=== PATIENT | male | born 1980 | race Hispanic/Latino ===

== ENCOUNTER 2024-02-12 19:38 | Inpatient (IN) | payer BC ==
--- OUTSIDE RECORDS SUMMARY | 2024-02-12 19:46 | XMS REPORT | Continuity of Care Document ---
Author Name Unknown Address [address] [facility] [address] [place] [address] [facility] thconnect Address [address] [facility] 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 Role Phone Tavia Louyuri Booker Primary Care Physician [phone] Lorna Sheridan Attending Clinician Unavail able Roger Lou Attending Clinician Unavailable Cristal Bonner LVN Attending Clinician [phone] Vy Vo MD Attending Clinician [phone] Benjamin Pires DO Attending Clinician [phone] Breanna Joseph RN Attending Clinician [phone] Rachel Feldman DO Attending Clinician [phone] Ab Vazquez MD Attending Clinician [phone] Theron COOPER, Michelle Mcdonald Attending Clinician [phone] Vasyl TY, Yaritza Zarate Attending Clinician Unavail able VY VO Attending Clinician Unavailable Cirilo Ramírez MD Attending Clinician [phone] Doctor Unassigned, [place] Attending Clinician U navailable GAURANG ADAME Attending Clinician Unavailable GAURANG ADAME Attending Clinician Unavailable Laisha Wagner MD, Mary Jo Attending Clinician [phone] KINJAL FLOWER Attending Clinician Unavailable Smooth Holman DO Attending Clinician [phone] Kinjal Flower MD Attending Clinician Benjamin Pires DO Admitting Clinician Michelle Crump MD Admitting Clinician CIRILO RAMÍREZ Admitting Clinician Unavailable Cirilo Ramírez MD Admitting Clinician [phone] MARY JO GUTIERREZ Admitting Clinician Laith Wagner MD, Mary Jo Admitting Clinician [phone] SMOOTH HOLMAN Admitting Clinician Unavailable Payers Payer Name Policy Type Policy Number Effective Date Expirati on Date Source [facility] 6 [id number] 2023 00:00:00 [facility] 6 [id number] 2018 00:00:00 [facility] Problems Condition Name Condition Details Condition Category Status Onset Date Resolution Date Last Treatment Date Treating Clinician Comments Source Altered mental status, unspecifie d altered mental status type Altered mental status, unspecifie d altered mental status type Disease Active 08-11 00:00: 00 [facility] Morbid obesity with body mass index of 40.0-49.9 Morbid obesity with body mass index of 40.0-49.9 Disease Active 08-11 00:00: 00 [facility] DKA, type 2, not at goal DKA, type 2, not at goal Disease Active 20 00:00: 00 [facility] E46 Unspecifie d severe protein-ca gely malnutriti on E46 Unspecifie d severe protein-ca gely malnutriti on Disease Active 07-27 00:00: 00 [facility] Acute pancreatit is without necrosis or infection, unspecifie d Acute pancreatit is without necrosis or infection, unspecifie d Disease Active 04-18 00:00: 00 [facility] Alcohol-in duced acute pancreatit is Alcohol-in duced acute pancreatit is Disease Active 07-05 00:00: 00 [facility] Acute pancreatit is without infection or necrosis Acute pancreatit is without infection or necrosis Disease Active 07-05 00:00: 00 [facility] E44.0 Moderate protein calorie malnutriti on E44.0 Moderate protein calorie malnutriti on Disease Active 07-28 00:00: 00 [facility] DKA, type 1, not at goal DKA, type 1, not at goal Disease Active 07-27 00:00: 00 [facility] [id number] Chronic gout of right foot, unspecifie d cause Problem [facility] [id number] Mixed hyperlipid emia Problem [facility] [id number] Essential hypertensi on Problem [facility] [id number] senior living (current) use of insulin Problem [facility] [id number] GERD without esophagiti s Problem [facility] [id number] Nicotine dependence with nicotine-i nduced disorder, unspecifie d nicotine product type Problem [facility] [id number] History of diabetic ketoacidos is Problem [facility] [id number] Diabetic ketoacidos is without coma associated with type 2 diabetes mellitus Problem [facility] [id number] Noncomplia nce with dietary restrictio n Problem [facility] Hyperglyce buddy due to type 2 diabetes mellitus Type 2 diabetes mellitus with hyperglyce buddy, unspecifie d whether intermediate insulin use Problem [facility] [id number] Alcohol abuse Problem [facility] [id number] Moderate protein-ca gely malnutriti on Problem [facility] [id number] Polyneurop athy Problem [facility] [id number] BMI 39.0-39.9, adult Problem [facility] [id number] Morbid (severe) obesity due to excess calories Problem [facility] Allergies, Adverse Reactions, Alerts Allergy Name Allergy Type Status Severity Reaction(s) Onset Date Inactive Date Treating Clinician Comments Source NO KNOWN ALLERGIE S Drug Class Active [facility] Social History Social Habit Start Date Stop Date Quantity Comments Source History of tobacco use Passive smoker [facility] History SDOH Social Connections Get Together [facility] History SDOH [facility] SDOH Social Connections Membership [facility] History SDOH Social Connections Meetings [facility] At [facility] History of Social function 2023-08-18 00:00:00 2023-08-18 00:00:00 [facility] Tobacco use and exposure 2023-08-16 00:00:00 2023-08-16 00:00:00 Former smokeless tobacco user [facility] Education 2023-04-19 00:00:00 2023-04-19 00:00:00 12 [facility] Tobacco Comment 2023-04-19 00:00:00 2023-04-19 00:00:00 Pt vapes currently [facility] History SDOH Alcohol Frequency 2022-07-06 00:00:00 2022-07-06 00:00:00 4 [facility] History SDOH Alcohol Std Drinks 2022-07-06 00:00:00 2022-07-06 00:00:00 3 [facility] History SDOH Alcohol Binge 2022-07-06 00:00:00 2022-07-06 00:00:00 4 [facility] History SDOH Social Connections Phone 2022-07-06 00:00:00 2022-07-06 00:00:00 5 [facility] History SDOH Social Connections Living 2022-07-06 00:00:00 2022-07-06 00:00:00 7 [facility] History SDOH Physical Activity DPW 2022-07-06 00:00:00 2022-07-06 00:00:00 0 [facility] History SDOH Physical Activity MPS 2022-07-06 00:00:00 2022-07-06 00:00:00 0 [facility] History SDOH Financial 2022-07-06 00:00:00 2022-07-06 00:00:00 5 [facility] History SDOH Food Worry 2022-07-06 00:00:00 2022-07-06 00:00:00 1 [facility] History SDOH Food Scarcity 2022-07-06 00:00:00 2022-07-06 00:00:00 1 [facility] History SDOH Transport Med 2022-07-06 00:00:00 2022-07-06 00:00:00 2 [facility] History SDOH Transport Non-Med 2022-07-06 00:00:00 2022-07-06 00:00:00 2 [facility] History SDOH Housing Unable to Pay 2022-07-06 00:00:00 2022-07-06 00:00:00 1 [facility] History SDOH Housing Places Lived 2022-07-06 00:00:00 2022-07-06 00:00:00 1 [facility] History SDOH Housing Homeless Last Year 2022-07-06 00:00:00 2022-07-06 00:00:00 2 [facility] Exposure to SARS-CoV-2 (event) 2022-06-25 00:00:00 2022-07-05 22:18:00 Not sure [facility] Smoking Status Start Date Stop Date Source Former Smoker 2023-10-15 00:00:00 2023-10-15 00:00:00 [facility] Smokes tobacco daily 2021-07-27 00:00:00 [facility] Medications Ordered Medication Name Filled Medication Name Start Date Stop Date Current Medication? Ordering Clinician Indication Dosage Frequency Signature (SIG) Comments Components Source Blood Glucose Meter Blood Glucose Meter 09-02 00:00: 00 No QD Blood Glucose Meter KCL (KLOR-CON M20) tablet 40 mEq 08-18 15:00: 00 08-18 15:13 :00 No 40meq 40 mEq, Oral, ONCE, 1 dose, On Wed08/19/23 at 1000, Routine [facility] nystatin 100,000 unit/mL suspension 08-18 00:00: 00 08-26 04:59 :00 No [id number] Take 5 mL by mouth 4 (four) times daily for 7 days. [facility] sulfamethox azole-trime thoprim 800-160 mg per tablet 08-18 00:00: 00 08-18 00:00 :00 No [id number] 1{tbl} Take 1 tablet by mouth in the morning and 1 tablet in the evening. [facility] Blood-Gluco se Sensor (FREESTYLE JO 3 SENSOR) Jo 08-18 00:00: 00 08-18 00:00 :00 No [id number] Use as directed [facility] KCL (KLOR-CON M20) tablet 40 mEq 08-17 20:15: 00 08-17 19:34 :00 No 40meq 40 mEq, Oral, ONCE, 1 dose, On Wed08/18/23 at 1515, Routine [facility] insulin lispro (human) (HumaLOG U-100) injection 8 Units 08-17 17:00: 00 Yes 8U 8 Units, Subcutaneo us, TID MEALS, First dose on Wed08/18/23 at 1200, Until Discontinu ed, Routine [facility] KCL (KLOR-CON M20) tablet 40 mEq 08-17 14:45: 00 08-17 14:03 :00 No 40meq 40 mEq, Oral, ONCE, 1 dose, On Wed08/18/23 at 0945, Routine [facility] insulin glargine (LANTUS U-100) injection 35 Units 08-17 14:00: 00 Yes 35U 35 Units, Subcutaneo us, DAILY, First dose on Wed08/18/23 at 0900, Until Discontinu ed, Routine [facility] glucagon (GLUCAGEN DIAGNOSTIC KIT) injection 1 mg 08-17 13:52: 51 Yes 1mg 1 mg, Intramuscu lar, PRN, Starting on Wed08/18/23 at 0852, Until Discontinu ed, FREDERICK, Blood Glucose < or = 70 mg/dL and patient is NPO, unable to swallow or has mental changes. [facility] dextrose 50 % in water (D50W) injection 25 mL 08-17 13:52: 51 Yes 25mL 25 mL, Slow IV Push, PRN, Starting on Wed08/18/23 at 0852, Until Discontinu ed, FREDERICK, Blood Glucose < or = 70 mg/dL and patient is NPO, unable to swallow or has mental status changes. [facility] traMADoL (ULTRAM) tablet 50 mg 08-17 03:23: 42 Yes 50mg 50 mg, Oral, Q6HPRN, Starting on Wed08/17/23 at 2223, Until Discontinu ed, Routine, Pain (scale 7-10) [facility] atorvastati n (LIPITOR) tablet 40 mg 08-17 02:00: 00 Yes 40mg 40 mg, Oral, QHS, First dose on Wed08/17/23 at 2100, Until Discontinu ed, Routine [facility] nystatin (NILSTAT) 100,000 unit/mL suspension 500,000 Units 08-17 01:00: 00 Yes 5mL 500,000 Units (5 mL), Oral, QID, First dose on Wed08/17/23 at 2000, Until Discontinu ed, Routine [facility] D5W 1000 mL + KCL 20 mEq 08-16 21:45: 00 08-17 19:21 :41 No IV Infusion, at 125 mL/hr, CONTINUOUS , Starting on Wed08/17/23 at 1645, Until Wed08/18/23 at 1421, Routine [facility] D5W 1000 mL + KCL 20 mEq 08-16 12:45: 00 08-16 21:44 :59 No IV Infusion, at 250 mL/hr, CONTINUOUS , Starting on Wed08/17/23 at 0745, Until Wed08/17/23 at 1644, Routine [facility] D5W 0.45% NaCl (1/2NS) 1 L + KCL 20 mEq 08-16 06:23: 31 08-16 11:38 :28 No IV Infusion, at 250 mL/hr, PRN - SEE INSTRUCTIO NS, Starting on Wed08/17/23 at 0123, Until Wed08/17/23 at 0638, Routine, Blood glucose control [facility] ampicillin- sulbactam (UNASYN) 3 g in NaCl 0.9% (NS) 100 mL MINI-BAG 08-16 03:30: 00 08-21 03:29 :00 No 3g 3 g, IV Piggyback, Q6H ABX, 20 doses, First dose on Wed08/16/23 at 2230, Last dose on Wed08/21/23 at 1630, Administer over 30 Minutes, 100 mL, Reason for Anti-Infec tive: Empiric Therapy for Suspected Infection, Empiric Therapy Site: Wound, Duration of therapy: 5 days [facility] heparin (porcine) injection 5,000 Units 08-16 03:00: 00 Yes 5000U 5,000 Units, Subcutaneo us, Q8H, First dose on Wed08/16/23 at 2200, Until Discontinu ed, Routine [facility] benzocaine- menthoL (CEPACOL SORE THROAT (SHAHEED-MEN)) lozenge 1 Lozenge 08-16 02:42: 33 Yes 1{lozen ge} 1 Lozenge, Oral, Q4HPRN, Starting on Wed08/16/23 at 2142, Until Discontinu ed, Routine, Sore throat [facility] potassium chloride in water (KCL) 20 mEq/100 mL RTU IVPB 20 mEq 08-16 02:30: 00 08-16 05:57 :00 No 20meq 20 mEq, IV Piggyback, ONCE, 1 dose, On Wed08/16/23 at 2130, 100 mL [facility] NaCl 0.45% (1/2NS) IV infusion 1,000 mL 08-16 02:30: 00 08-16 11:38 :28 No 1000mL at 250 mL/hr, 1,000 mL, IV Infusion, CONTINUOUS , Starting on Wed08/16/23 at 2130, Until Wed08/17/23 at 0638, FREDERICK [facility] insulin regular human (HUMULIN R) 100 Units in NaCl 0.9% (NS) 100 mL infusion 08-16 02:24: 17 08-18 14:13 :09 No 0U/kg/h 0-0.3 Units/kg/h r ?88 kg (0-26.4 mL/hr), IV Infusion, TITRATE, Parameters in Admin. Instr., Follow DKA Insulin Rate Adjustment Protocol, Starting on Wed08/16/23 at 2124, IMPORTAN T: IF YOU ARE THE NURSE INITIATING THE INSULIN DRIP, in order to be able to adjust rate, change the dose from the MAR from the drop-down menu from units/kg/h r to units/hr. This will send the dosage to the IV pump in units/hr, which aligns with the insulin calculator and nursing practice.* * - Follow 'DKA Insulin Rate Adjustment Protocol' - Start insulin infusion at 0.1 units/kg /hr. When adjusting rate, do not increase rate above 0.3 units/kg/h our. If rate has been at 0.3 units/kg/h r for the past two hours AND blood glucose remains above 200 mg/dL in DKA and above 300 mg/dL in HHS without a drop of at least 10% in glucose levels, NHO for considerat ion of endocrinol ogy consult - Hold insulin and NHO STAT if potassium is less than 3.3 mEq/L. - NHO STAT if blood glucose less than 100 mg/dL or greater than 600 mg/dL or if blood glucose not decreased by 50 mg/dL in the first hour of insulin infusion. - Once blood glucose is less than or equal to 200 mg/dL in patient with DKA or blood glucose is less than or equal to 300 mg/dL in patient with HHS, change to fluids with dextrose. - If during insulin infusion and on dextrose fluids blood glucose is less than 150 mg/dL in DKA or less than 200 mg/dL in HHS, NHO for increase in dextrose provided in continuous fluids. - Once AGAP less than 12, blood glucose less than 200 mg/dL, TCO2 greater than 15 x 2 and patient ready to eat, NHO for SubQ glargine order two hours before stopping insulin infusion. [facility] D5W 0.45% NaCl (1/2NS) IV infusion 1,000 mL 08-16 02:23: 31 08-16 06:23 :48 No 1000mL at 200 mL/hr, 1,000 mL, IV Infusion, PRN - SEE INSTRUCTIO NS, Starting on Wed08/16/23 at 2123, Until Wed08/17/23 at 0123, FREDERICK [facility] insulin glargine (LANTUS U-100) injection 35 Units 08-13 14:00: 00 Yes 35U 35 Units, Subcutaneo us, DAILY, First dose on Wed08/14/23 at 0900, Until Discontinu ed, Routine [facility] atorvastati n (LIPITOR) tablet 40 mg 08-13 02:00: 00 Yes 40mg 40 mg, Oral, QHS, First dose on Wed08/13/23 at 2100, Until Discontinu ed, Routine [facility] Blood-Gluco se Meter (ACCU-CHEK GUIDE GLUCOSE METER) [facility] 00 Yes [id number] Use as directed [facility] lancets 33 gauge Misc 08-13 00:00: 00 Yes [id number] Use as directed [facility] blood sugar diagnostic (ACCU-CHEK GUIDE TEST STRIPS) strip 08-13 00:00: 00 Yes [id number] Use as directed [facility] Insulin Syringe-Nee dle U-100 0.5 mL 31 gauge x 5/16" Syrg 08-13 00:00: 00 Yes [id number] Use as directed [facility] insulin detemir U-100 (LEVEMIR U-100 INSULIN) 100 unit/mL injection 08-13 00:00: 00 Yes [id number] 35U inject 35 Units under the skin in the morning. [facility] insulin aspart RAPID (NOVOLOG U-100 INSULIN ASPART) 100 unit/mL injection 08-13 00:00: 00 Yes [id number] 10U inject 10 Units under the skin in the morning and 10 Units at noon and 10 Units in the evening. inject with meals. [facility] glipiZIDE 5 mg tablet 08-13 00:00: 00 09-13 04:59 :00 No [id number] 5mg Take 1 tablet by mouth 2 (two) times daily before breakfast and dinner for 30 days. [facility] metFORMIN 500 mg tablet 08-13 00:00: 00 09-13 04:59 :00 No [id number] 500mg Take 1 tablet by mouth in the morning and 1 tablet in the evening. Take with meals. Do all this for 30 days. [facility] losartan 25 mg tablet 08-13 00:00: 00 09-13 04:59 :00 No [id number] 25mg Take 1 tablet by mouth in the morning for 30 days. [facility] Sliding Scale Insulin - Lispro (HumaLOG) 08-12 22:00: 00 Yes Subcutaneo us, TID MEALS+HS, First dose on Wed08/13/23 at 1700, Until Discontinu ed, Routine [facility] metFORMIN (GLUCOPHAGE ) tablet 500 mg 08-12 22:00: 00 Yes 500mg 500 mg, Oral, BID MEALS, First dose on Wed08/13/23 at 1700, Until Discontinu ed, Routine [facility] insulin lispro (human) (HumaLOG U-100) injection 10 Units 08-12 21:30: 00 Yes 10U 10 Units, Subcutaneo us, TIDAC, First dose on Wed08/13/23 at 1630, Until Discontinu ed, Routine [facility] glipiZIDE (GLUCOTROL) tablet 5 mg 08-12 21:30: 00 Yes 5mg 5 mg, Oral, BIDAC, First dose on Wed08/13/23 at 1630, Until Discontinu ed, Routine [facility] D5W 1000 mL + KCL 20 mEq 08-12 15:00: 00 08-12 18:08 :38 No IV Infusion, at 200 mL/hr, CONTINUOUS , Starting on Wed08/13/23 at 1000, Until Wed08/13/23 at 1308, Routine [facility] allopurinoL (ZYLOPRIM) tablet 100 mg 08-12 14:00: 00 Yes 100mg 100 mg, Oral, DAILY, First dose on Wed08/13/23 at 0900, Until Discontinu ed, Routine [facility] insulin glargine (LANTUS U-100) injection 30 Units 08-12 13:15: 00 08-12 13:17 :00 No 30U 30 Units, Subcutaneo us, ONCE TODAY, 1 dose, On Wed08/13/23 at 0815, Routine [facility] glucagon (GLUCAGEN DIAGNOSTIC KIT) injection 1 mg 08-12 12:04: 01 Yes 1mg 1 mg, Intramuscu lar, PRN, Starting on Wed08/13/23 at 0704, Until Discontinu ed, FREDERICK, Blood Glucose < or = 70 mg/dL and patient is NPO, unable to swallow or has mental changes. [facility] dextrose 50 % in water (D50W) injection 25 mL 08-12 12:04: 01 Yes 25mL 25 mL, Slow IV Push, PRN, Starting on Wed08/13/23 at 0704, Until Discontinu ed, FREDERICK, Blood Glucose < or = 70 mg/dL and patient is NPO, unable to swallow or has mental status changes. [facility] dextrose 50 % in water (D50W) injection 50 mL 08-12 03:00: 00 08-12 02:19 :00 No 50mL 50 mL, Slow IV Push, ONCE, 1 dose, On Wed08/12/23 at 2200, STAT [facility] D5W 0.45% NaCl (1/2NS) 1 L + KCL 20 mEq 08-11 23:31: 58 08-12 13:49 :41 No IV Infusion, at 200 mL/hr, TITRATE, Starting on Wed08/12/23 at 1831, Until Wed08/13/23 at 0849, Routine, Blood glucose control, PRN SEE INSTRUCTIO NS FOR DKA PROTOCOL [facility] enoxaparin (LOVENOX) injection 40 mg 08-11 22:00: 00 Yes 40mg 40 mg, Subcutaneo us, DAILY, First dose on Wed08/12/23 at 1700, Until Discontinu ed, Routine [facility] NaCl 0.45% (1/2NS) IV infusion 1,000 mL 08-11 16:00: 00 08-12 12:00 :09 No 1000mL at 250 mL/hr, 1,000 mL, IV Infusion, CONTINUOUS , Starting on Wed08/12/23 at 1100, Until Wed08/13/23 at 0700, FREDERICK [facility] insulin regular human (HUMULIN R) 100 Units in NaCl 0.9% (NS) 100 mL infusion 08-11 15:50: 37 08-12 18:08 :38 No 0U/kg/h 0-0.3 Units/kg/h r ?102.5 kg (0-30.75 mL/hr), IV Infusion, TITRATE, Parameters in Admin. Instr., Follow DKA Insulin Rate Adjustment Protocol, Starting on Wed08/12/23 at 1050, IMPORTAN T: IF YOU ARE THE NURSE INITIATING THE INSULIN DRIP, in order to be able to adjust rate, change the dose from the MAR from the drop-down menu from units/kg/h r to units/hr. This will send the dosage to the IV pump in units/hr, which aligns with the insulin calculator and nursing practice.* * - Follow 'DKA Insulin Rate Adjustment Protocol' - Start insulin infusion at 0.1 units/kg /hr. When adjusting rate, do not increase rate above 0.3 units/kg/h our. If rate has been at 0.3 units/kg/h r for the past two hours AND blood glucose remains above 200 mg/dL in DKA and above 300 mg/dL in HHS without a drop of at least 10% in glucose levels, NHO for considerat ion of endocrinol ogy consult - Hold insulin and NHO STAT if potassium is less than 3.3 mEq/L. - NHO STAT if blood glucose less than 100 mg/dL or greater than 600 mg/dL or if blood glucose not decreased by 50 mg/dL in the first hour of insulin infusion. - Once blood glucose is less than or equal to 200 mg/dL in patient with DKA or blood glucose is less than or equal to 300 mg/dL in patient with HHS, change to fluids with dextrose. - If during insulin infusion and on dextrose fluids blood glucose is less than 150 mg/dL in DKA or less than 200 mg/dL in HHS, NHO for increase in dextrose provided in continuous fluids. - Once AGAP less than 12, blood glucose less than 200 mg/dL, TCO2 greater than 15 x 2 and patient ready to eat, NHO for SubQ glargine order two hours before stopping insulin infusion. [facility] NaCl 0.9% (NS) bolus infusion 1,000 mL 08-11 15:45: 00 08-11 16:02 :00 No 1000mL at 999 mL/hr, 1,000 mL, IV Infusion, ONCE, 1 dose, On Nurys 08/12/23 at 1045, [facility] NaCl 0.9% (NS) bolus infusion 1,000 mL 08-11 14:45: 00 08-11 16:02 :00 No 1000mL at 999 mL/hr, 1,000 mL, IV Infusion, ONCE, 1 dose, On Nurys 08/12/23 at 0945, [facility] sodium bicarbonate 1 mEq/mL (8.4 %) injection 100 mEq 08-11 14:45: 00 08-11 13:55 :00 No 100meq 100 mEq, Slow IV Push, ONCE, 1 dose, On Nurys 08/12/23 at 0945, Routine [facility] insulin regular human (HUMULIN R) injection 10 Units 08-11 14:30: 00 08-11 13:59 :00 No 10U 10 Units, Slow IV Push, ONCE, 1 dose, On Wed08/12/23 at 0930, Routine, Indication for insulin: Hyperglyce buddy [facility] NaCl 0.9% (NS) bolus infusion 1,000 mL 08-11 14:30: 00 08-11 15:16 :00 No 1000mL at 999 mL/hr, 1,000 mL, IV Infusion, ONCE, 1 dose, On Wed08/12/23 at 0930, FREDERICK [facility] insulin regular human (HUMULIN R) 100 Units in NaCl 0.9% (NS) 100 mL infusion 08-11 13:52: 36 08-11 15:51 :52 No 0U/kg/h 0-0.3 Units/kg/h r ?102.5 kg (0-30.75 mL/hr), IV Infusion, TITRATE, Parameters in Admin. Instr., Follow DKA Insulin Rate Adjustment Protocol, Starting on Wed08/12/23 at 0852, IMPORTAN T: IF YOU ARE THE NURSE INITIATING THE INSULIN DRIP, in order to be able to adjust rate, change the dose from the MAR from the drop-down menu from units/kg/h r to units/hr. This will send the dosage to the IV pump in units/hr, which aligns with the insulin calculator and nursing practice.* * - Follow 'DKA Insulin Rate Adjustment Protocol' - Start insulin infusion at 0.1 units/kg /hr. When adjusting rate, do not increase rate above 0.3 units/kg/h our. If rate has been at 0.3 units/kg/h r for the past two hours AND blood glucose remains above 200 mg/dL in DKA and above 300 mg/dL in HHS without a drop of at least 10% in glucose levels, KYO for considerat ion of endocrinol ogy consult - Hold insulin and NHO STAT if potassium is less than 3.3 mEq/L. - NHO STAT if blood glucose less than 100 mg/dL or greater than 600 mg/dL or if blood glucose not decreased by 50 mg/dL in the first hour of insulin infusion. - Once blood glucose is less than or equal to 200 mg/dL in patient with DKA or blood glucose is less than or equal to 300 mg/dL in patient with HHS, change to fluids with dextrose. - If during insulin infusion and on dextrose fluids blood glucose is less than 150 mg/dL in DKA or less than 200 mg/dL in HHS, NHO for increase in dextrose provided in continuous fluids. - Once AGAP less than 12, blood glucose less than 200 mg/dL, TCO2 greater than 15 x 2 and patient ready to eat, NHO for SubQ glargine order two hours before stopping insulin infusion. [facility] polyethylen e glycol 3350 17 gram powder 07-29 00:00: 00 08-29 04:59 :00 No [id number] 17g Take 1 Packet by mouth in the morning for 30 days. [facility] SITagliptin phosphate 25 mg tablet 07-29 00:00: 00 08-29 04:59 :00 No [id number] 25mg Take 1 tablet by mouth in the morning for 30 days. [facility] glipiZIDE XL 2.5 mg 24 hr tablet 07-29 00:00: 00 08-13 00:00 :00 No [id number] 2.5mg Take 1 tablet by mouth daily with breakfast for 30 days. [facility] SITagliptin phosphate (JANUVIA) tablet 25 mg 07-28 14:00: 00 Yes 25mg 25 mg, Oral, DAILY, First dose on Nurys 07/29/23 at 0900, Until Discontinu ed, Routine [facility] atorvastati n 40 mg tablet 07-28 13:08: 17 Yes 40mg Take 1 tablet by mouth at bedtime. [facility] allopurinoL 200 mg Tab 07-28 13:08: 17 08-18 00:00 :00 No 100mg Take 100 mg by mouth in the morning. [facility] losartan 50 mg tablet 07-28 13:08: 17 08-13 00:00 :00 No 50mg Take 1 tablet by mouth in the morning. [facility] empaglifloz in-metformi n (SYNJARDY) 12.5-1,000 mg Tab 07-28 11:18: 00 07-28 00:00 :00 No 1{tbl} Take 1 tablet by mouth in the morning. [facility] Sliding Scale Insulin - Lispro (HumaLOG) 07-28 02:00: 00 Yes Subcutaneo us, TID MEALS+HS, First dose on Wed07/28/23 at 2100, Until Discontinu ed, Routine [facility] glipiZIDE XL (GLUCOTROL XL) tablet 2.5 mg 07-27 22:15: 00 Yes 2.5mg 2.5 mg, Oral, QAM WITH BREAKFAST, First dose (after last modificati on) on Wed07/28/23 at 1715, Until Discontinu ed, Routine [facility] glucagon (GLUCAGEN DIAGNOSTIC KIT) injection 1 mg 07-27 22:08: 10 Yes 1mg 1 mg, Intramuscu lar, PRN, Starting on Wed07/28/23 at 1708, Until Discontinu ed, FREDERICK, Blood Glucose < or = 70 mg/dL and patient is NPO, unable to swallow or has mental changes. [facility] dextrose 50 % in water (D50W) injection 25 mL 07-27 22:08: 10 Yes 25mL 25 mL, Slow IV Push, PRN, Starting on Wed07/28/23 at 1708, Until Discontinu ed, FREDERICK, Blood Glucose < or = 70 mg/dL and patient is NPO, unable to swallow or has mental status changes. [facility] sennosides- docusate sodium (SENOKOT-S) 8.6-50 mg per tablet 1 tablet 07-27 19:45: 00 Yes 1{tbl} 1 tablet, Oral, DAILY, First dose on Wed07/28/23 at 1445, Until Discontinu ed, Routine [facility] polyethylen e glycol 3350 powder 17 g 07-27 19:45: 00 Yes 17g 17 g, Oral, DAILY, First dose on Wed07/28/23 at 1445, Until Discontinu ed, Routine [facility] insulin lispro (human) (HumaLOG U-100) injection 3 Units 07-27 13:00: 00 07-27 17:30 :01 No 3U 3 Units, Subcutaneo us, TID MEALS, First dose on Wed07/28/23 at 0800, Until Discontinu ed, Routine [facility] atorvastati n (LIPITOR) tablet 40 mg 07-27 02:00: 00 Yes 40mg 40 mg, Oral, QHS, First dose on Wed07/27/23 at 2100, Until Discontinu ed, Routine [facility] insulin lispro (human) (HumaLOG U-100) injection 07-27 01:00: 00 07-27 17:30 :01 No Subcutaneo us, Q4H, First dose on Wed07/27/23 at 2000, Until Discontinu ed, [facility]LOVENOX[facility] 40 mg 07-26 22:00: 00 Yes 40mg 40 mg, Subcutaneo us, DAILY, First dose on Wed07/27/23 at 1700, Until Discontinu ed, Routine [facility] phenoL (SORE THROAT (PHENOL)) 1.4 % spray bottle 1 [place] 07-26 15:23: 28 Yes 1{spray } 1 [place], Oral, PRN, Starting on Wed07/27/23 at 1023, Until Discontinu ed, Routine, Sore throat [facility] losartan (COZAAR) tablet 50 mg 07-26 14:00: 00 Yes 50mg 50 mg, Oral, DAILY, First dose on Wed07/27/23 at 0900, Until Discontinu ed, Routine [facility] allopurinoL (ZYLOPRIM) tablet 100 mg 07-26 14:00: 00 Yes 100mg 100 mg, Oral, DAILY, First dose on Wed07/27/23 at 0900, Until [facility]continu ed [facility] D[facility] mL + KCL 20 mEq 07-26 14:00: 00 07-27 14:27 :56 No IV Infusion, at 150 mL/hr, CONTINUOUS , Starting on Wed07/27/23 at 0900, Until Wed07/28/23 at 0927, Routine [facility] ondansetron (ZOFRAN (PF)) injection 4 mg 07-26 09:38: 31 Yes 4mg 4 mg, Slow IV Push, Q6HPRN, Starting on Wed07/27/23 at 0438, Until Discontinu ed, Routine, Nausea and Vomiting (N/V) [facility] acetaminoph en (TYLENOL) tablet 650 mg 07-26 09:38: 16 Yes 650mg 650 mg, Oral, Q6HPRN, Starting on Wed07/27/23 at 0438, Until Discontinu ed, Routine, Pain (scale 1-3) [facility] iopamidol (ISOVUE 370-500 mL) injection 100 mL 07-26 09:15: 00 07-26 09:15 :00 No [id number] 100mL 100 mL, Intravenou s, ONCE, 1 dose, On Wed07/27/23 at 0415, Routine [facility] insulin regular human (HUMULIN R) 100 Units in NaCl 0.9% (NS) 100 mL infusion 07-26 09:00: 00 Yes 0U/kg/h 0-0.3 Units/kg/h r ?104.3 kg (0-31.29 mL/hr), IV Infusion, TITRATE, Parameters in Admin. Instr., Follow DKA Insulin Rate Adjustment Protocol, Starting on Wed07/27/23 at 0400, JOHNAN T: IF YOU ARE THE NURSE INITIATING THE INSULIN DRIP, in order to be able to adjust rate, change the dose from the MAR from the drop-down menu from units/kg/h r to units/hr. This will send the dosage to the IV pump in units/hr, which aligns with the insulin calculator and nursing practice.* * - Follow 'DKA Insulin Rate Adjustment Protocol' - Start insulin infusion at 0.1 units/kg /hr. When adjusting rate, do not increase rate above 0.3 units/kg/h our. If rate has been at 0.3 units/kg/h r for the past two hours AND blood glucose remains above 200 mg/dL in DKA and above 300 mg/dL in HHS without a drop of at least 10% in glucose levels, NHO for considerat ion of endocrinol ogy consult - Hold insulin and NHO STAT if potassium is less than 3.3 mEq/L. - NHO STAT if blood glucose less than 100 mg/dL or greater than 600 mg/dL or if blood glucose not decreased by 50 mg/dL in the first hour of insulin infusion. - Once blood glucose is less than or equal to 200 mg/dL in patient with DKA or blood glucose is less than or equal to 300 mg/dL in patient with HHS, change to fluids with dextrose. - If during insulin infusion and on dextrose fluids blood glucose is less than 150 mg/dL in DKA or less than 200 mg/dL in HHS, NHO for increase in dextrose provided in continuous fluids. - Once AGAP less than 12, blood glucose less than 200 mg/dL, TCO2 greater than 15 x 2 and patient ready to eat, NHO for SubQ glargine order two hours before stopping insulin infusion. [facility] potassium chloride in water (KCL) 20 mEq/100 mL RTU IVPB 20 mEq 07-26 08:45: 00 07-26 11:07 :00 No 20meq 20 mEq, IV Piggyback, ONCE, 1 dose, On Wed07/27/23 at 0345, 100 mL [facility] NaCl 0.45% (1/2NS) 1000 mL + KCL 20 mEq 07-26 08:45: 00 07-26 12:49 :04 No 1000mL [facility] D5W 0.45% NaCl (1/2NS) IV infusion 1,000 mL 07-26 08:40: 33 Yes 1000mL at 200 mL/hr, 1,000 mL, IV Infusion, PRN - SEE INSTRUCTIO NS, Starting on Wed07/27/23 at 0340, Until Discontinu ed, FREDERICK [facility] NaCl 0.9% (NS) bolus infusion 1,000 mL 07-26 08:30: 00 07-26 09:58 :00 No 1000mL at 999 mL/hr, 1,000 mL, IV Piggyback, ONCE, 1 dose, On Wed07/27/23 at 0330, STAT [facility] hyoscyamine sulfate (LEVSIN/SL) sublingual tablet 0.25 mg 07-26 08:30: 00 07-26 07:39 :00 No .25mg 0.25 mg, Sublingual , ONCE NOW, 1 dose, On Wed07/27/23 at 0330, Routine [facility] famotidine (PEPCID (PF)) injection 20 mg 07-26 08:30: 00 07-26 07:37 :00 No 20mg 20 mg, Slow IV Push, ONCE NOW, 1 dose, [facility] Wed07/27/23 at 0330[facility]% (NS) bolus infusion 2,000 mL 07-26 08:15: 00 07-26 09:31 :00 No 2000mL at 999 mL/hr, 2,000 mL, IV Piggyback, ONCE, 1 dose, On Wed07/27/23 at 0315, STAT [facility] insulin regular human (HUMULIN R) injection 10 Units 07-26 07:45: 00 07-26 07:54 :00 No 10U 10 Units, Slow IV Push, ONCE, 1 dose, On Wed07/27/23 at 0245, STAT, Indication for insulin: Hyperglyce [facility] ondansetron (ZOFRAN (PF)) injection 4 mg 07-26 07:45: 00 07-26 07:39 :00 No 4mg 4 mg, Slow IV Push, ONCE, 1 dose, On Wed07/27/23 at 0245, FREDERICK [facility] fenofibrate micronized 67 mg capsule -15 00:00: 00 05-23 04:59 :00 No [id number] 67mg Take 1 capsule by mouth in the morning for 30 days. [facility] losartan 50 mg tablet 04-21 16:26: 29 Yes 50mg Take 1 tablet by mouth in the morning. [facility] allopurinoL 200 mg Tab 04-21 16:26: 29 Yes 100mg Take 100 mg by mouth in the morning. [facility] atorvastati n 40 mg tablet 04-21 16:26: 29 Yes 40mg Take 1 tablet by mouth at bedtime. [facility] empaglifloz in-metformi n (SYNJARDY) 12.5-1,000 mg Tab 04-21 16:26: 29 Yes 1{tbl} Take 1 tablet by mouth in the morning. [facility] amLODIPine (NORVASC) tablet 5 mg 04-21 15:30: 00 Yes 5mg 5 mg, Oral, DAILY, First dose on Wed04/22/23 at 1030, Until Discontinu ed, Routine [facility] fenofibrate micronized (LOFIBRA) capsule 67 mg 04-21 14:00: 00 Yes 67mg 67 mg, Oral, DAILY, First dose on Wed04/22/23 at 0900, Until Discontinu ed, Routine [facility] ketorolac (TORADOL) injection 15 mg 04-21 10:45: 00 04-21 13:40 :00 No 15mg 15 mg, Slow IV Push, ONCE, 1 dose, On Wed04/22/23 at 0545, Routine [facility] potassium chloride in water 10 mEq/100 mL RTU 10 mEq 04-20 15:00: 00 04-20 19:25 :00 No 10meq 10 mEq, IV Piggyback, Q2H, 3 doses, First dose on Wed04/21/23 at 1000, Last dose on Wed04/21/23 at 1400, Administer over 60 Minutes, 100 mL [facility] hydralAZINE (APRESOLINE ) injection 5 mg 04-20 13:54: 28 Yes 5mg 5 mg, Slow IV Push, Q4HPRN, Starting on Wed04/21/23 at 0854, Until Discontinu ed, Routine, DBP=>100; SBP=>160 [facility] losartan (COZAAR) tablet 50 mg 04-20 00:00: 00 Yes 50mg 50 mg, Oral, DAILY, First dose on Wed04/20/23 at 1900, Until Discontinu ed, Routine [facility] NaCl 0.9% (NS) IV infusion 1,000 mL 04-20 00:00: 00 Yes 1000mL at 150 mL/hr, IV Infusion, CONTINUOUS , Starting on Wed04/20/23 at 1900, Until Discontinu ed, Routine [facility] enoxaparin (LOVENOX) injection 40 mg 04-19 14:00: 00 Yes 40mg 40 mg, Subcutaneo us, DAILY, First dose on Wed04/20/23 at 0900, Until Discontinu ed, Routine [facility] allopurinoL (ZYLOPRIM) tablet 100 mg 04-19 14:00: 00 Yes 100mg 100 mg, Oral, DAILY, First dose on Wed04/20/23 at 0900, Until Discontinu ed [facility] NaCl 0.9% (NS) IV infusion 1,000 mL 04-19 07:45: 00 04-19 23:51 :00 No 1000mL at 125 mL/hr, IV Infusion, CONTINUOUS , Starting on Wed04/20/23 at 0245, Until Wed04/20/23 at 1851, Routine [facility] Sliding Scale Insulin - Lispro (HumaLOG) 04-19 05:00: 00 Yes Subcutaneo us, Q6H, First dose on Wed04/20/23 at 0000, Until Discontinu ed, Routine [facility] FENTanyl PF (SUBLIMAZE (PF)) injection 50 mcg 04-19 04:47: 30 Yes 50ug 50 mcg, Slow IV Push, Q4HPRN, Starting on Wed04/19/23 at 2347, Until Discontinu ed, Routine, Pain (scale 7-10) [facility] hydralAZINE (APRESOLINE ) injection 10 mg 04-19 02:46: 42 04-20 13:55 :11 No 10mg 10 mg, Slow IV Push, Q4HPRN, Starting on Wed04/19/23 at 2146, Until Wed04/21/23 at 0855, Routine, DBP=>100; SBP=>160 [facility] glucagon (GLUCAGEN DIAGNOSTIC KIT) injection 1 mg 04-19 02:11: 10 Yes 1mg 1 mg, Intramuscu lar, PRN, Starting on Wed04/19/23 at 2111, Until Discontinu ed, FREDERICK, Blood Glucose < or = 70 mg/dL and patient is NPO, unable to swallow or has mental changes. [facility] dextrose 50 % in water (D50W) injection 25 mL 04-19 02:11: 10 Yes 25mL 25 mL, Slow IV Push, PRN, Starting on Wed04/19/23 at 2111, Until Discontinu ed, FREDERICK, Blood Glucose < or = 70 mg/dL and patient is NPO, unable to swallow or has mental status changes. [facility] ondansetron (ZOFRAN (PF)) injection 4 mg 04-19 02:11: 10 Yes 4mg 4 mg, Slow IV Push, Q6HPRN, Starting on Wed04/19/23 at 2111, Until Discontinu ed, Routine, Nausea and Vomiting (N/V) [facility] acetaminoph en (TYLENOL) tablet 650 mg 04-19 02:11: 10 Yes 650mg 650 mg, Oral, Q6HPRN, Starting on Wed04/19/23 at 2111, Until Discontinu ed, Routine, Pain (scale 1-3) [facility] HYDROcodone -acetaminop hen (NORCO 5) 5-325 mg tablet 1 tablet 04-19 02:11: 10 04-21 02:10 :10 No 1{tbl} 1 tablet, Oral, Q6HPRN, Starting on Wed04/19/23 at 2111, Until Wed04/21/23 at 2110, Routine, Pain (scale 4-6) [facility] morpHINE (2 mg/mL) injection 2 mg 04-19 02:11: 10 04-19 04:47 :41 No 2mg 2 mg, Slow IV Push, Q4HPRN, Starting on Wed04/19/23 at 2111, Until Wed04/19/23 at 2347, Routine, Pain (scale 7-10) [facility] losartan 50 mg tablet 07-08 13:23: 36 Yes 50mg Take 50 mg by mouth daily. [facility] amLODIPine (NORVASC) tablet 10 mg 07-08 05:30: 00 Yes 10mg 10 mg, Oral, DAILY, First dose on Wed07/08/22 at 0030, Until Discontinu ed, Routine [facility] hydrALAZINE (APRESOLINE ) tablet 10 mg 07-08 01:42: 46 Yes 10mg 10 mg, Oral, Q6HPRN, Starting on Wed07/07/22 at 2042, Until Discontinu ed, Routine, SBP>160, DBP>100 [facility] amLODIPine 10 mg tablet 07-08 00:00: 00 08-08 04:59 :00 No [id number] 10mg Take 1 tablet by mouth in the morning for 30 days. [facility] lactated ringers IV infusion 1,000 mL 07-07 20:15: 00 Yes 1000mL at 100 mL/hr, 1,000 mL, IV Infusion, CONTINUOUS , Starting on Wed07/07/22 at 1515, Until Discontinu ed, Routine [facility] allopurinoL 100 mg tablet 07-07 09:33: 40 07-07 00:00 :00 No 100mg Take 100 mg by mouth daily. [facility] morpHINE (2 mg/mL) injection 2 mg 07-07 03:30: 33 07-09 03:29 :33 No 2mg 2 mg, Slow IV Push, Q4HPRN, Starting on Wed07/06/22 at 2230, Until Wed07/08/22 at 2229, Routine, Pain (scale 7-10) [facility] multivitami n tablet 07-07 00:00: 00 08-07 04:59 :00 No [id number] 1{tbl} Take 1 tablet by mouth in the morning for 30 days. [facility] thiamine 100 mg tablet 07-07 00:00: 00 08-07 04:59 :00 No [id number] 100mg Take 1 tablet by mouth in the morning for 30 days. [facility] HYDROcodone -acetaminop hen 5-325 mg tablet 07-07 00:00: 00 07-11 04:59 :00 No [id number] 1{tbl} Take 1 tablet by mouth every 6 (six) hours as needed for Pain (scale 4-6) for up to 3 days. Indication s: acute pain [facility] HYDROcodone -acetaminop hen (NORCO 5) 5-325 mg tablet 1 tablet 07-06 15:05: 38 Yes 1{tbl} 1 tablet, Oral, Q6HPRN, Starting on Wed07/06/22 at 1005, Until Discontinu ed, Routine, Pain (scale 4-6) [facility] multivitami n tablet 1 tablet 07-06 14:00: 00 Yes 1{tbl} 1 tablet, Oral, DAILY, First dose on Wed07/06/22 at 0900, Until Discontinu ed, Routine [facility] thiamine (VITAMIN B1) 100 mg in NaCl 0.9% (NS) piggyback 07-06 14:00: 00 07-06 15:10 :00 No 100mg IV Piggyback, DAILY, 1 dose, First dose on Wed07/06/22 at 0900, 50 mL [facility] Sliding Scale Insulin - Lispro (HumaLOG) 07-06 13:00: 00 Yes Subcutaneo us, TID MEALS+HS, First dose on Wed07/06/22 at 0800, Until Discontinu ed, Routine [facility] heparin (porcine) injection 5,000 Units 07-06 13:00: 00 Yes 5000U 5,000 Units, Subcutaneo us, Q12H, First dose on Wed07/06/22 at 0800, Until Discontinu ed, Routine [facility] oxazepam (SERAX) capsule 15 mg 07-06 12:44: 01 Yes 15mg 15 mg, Oral, Q4HPRN, Starting on Wed07/06/22 at 0744, Until Discontinu ed, Routine, Only while awake for DBP equal to or greater than 100, HR equal to or greater than 100. [facility] pantoprazol e (PROTONIX) injection 40 mg 07-06 03:30: 00 Yes 40mg 40 mg, Slow IV Push, Q24H, First dose on Wed07/05/22 at 2230, Until Discontinu ed [facility] lactated ringers IV infusion 1,000 mL 07-06 03:30: 00 07-07 20:02 :12 No 1000mL at 125 mL/hr, 1,000 mL, IV Infusion, CONTINUOUS , Starting on Wed07/05/22 at 2230, Until Wed07/07/22 at 1502, Routine [facility] ondansetron (ZOFRAN (PF)) injection 4 mg 07-06 03:16: 36 Yes 4mg 4 mg, Slow IV Push, Q6HPRN, Starting on Wed07/05/22 at 2216, Until Discontinu ed, Routine, Nausea and Vomiting (N/V) [facility] morpHINE (2 mg/mL) injection 2 mg 07-06 03:16: 27 07-07 03:15 :27 No 2mg 2 mg, Slow IV Push, Q4HPRN, Starting on Wed07/05/22 at 2216, Until Wed07/06/22 at 2215, Routine, Pain (scale 7-10) [facility] acetaminoph en (TYLENOL) tablet 650 mg 07-06 03:16: 22 Yes 650mg 650 mg, Oral, Q6HPRN, Starting on 5/28/23 at 2216, Until Discontinu ed, Routine, Pain (scale 1-3) [facility] Atorvastati n Calcium 40 MG Atorvastati n Calcium 40 MG 08-19 00:00: 00 No 1{table t} QD Atorvastat in Calcium 40 MG insulin glargine (LANTUS U-100) injection 50 Units 07-30 14:00: 00 Yes 50U 50 Units, Subcutaneo us, DAILY, First dose (after last modificati on) on Wed07/30/21 at 0900, Until Discontinu ed, Routine [facility] insulin glargine (LANTUS U-100) injection 40 Units 07-29 22:00: 00 Yes 40U 40 Units, Subcutaneo us, Q24H, First dose on Wed07/29/21 at 1700, Until Discontinu ed, Routine [facility] insulin lispro (human) (HumaLOG U-100) injection 28 Units 07-29 22:00: 00 Yes 28U 28 Units, Subcutaneo us, TID MEALS, First dose (after last modificati on) on Wed07/29/21 at 1700, Until Discontinu ed, Routine [facility] losartan 50 mg tablet 07-29 17:35: 48 Yes 50mg Take 50 mg by mouth daily. [facility] allopurinoL 100 mg tablet 07-29 17:35: 48 Yes 100mg Take 100 mg by mouth daily. [facility] insulin lispro (human) (HumaLOG U-100) injection 25 Units 07-29 17:00: 00 07-29 19:35 :37 No 25U 25 Units, Subcutaneo us, TID MEALS, First dose (after last modificati on) on Wed07/29/21 at 1200, Until Discontinu ed, Routine [facility] insulin glargine (LANTUS U-100) injection 50 Units 07-29 14:00: 00 07-29 13:36 :35 No 50U 50 Units, Subcutaneo us, DAILY, First dose (after last modificati on) on Wed07/29/21 at 0900, Until Discontinu ed, [facility] (KLOR-CON M20[facility] tablet 40 mEq 07-29 12:15: 00 07-29 13:12 :00 No 40meq 40 mEq, Oral, ONCE, 1 dose, On Wed07/29/21 at 0715, Routine [facility] Blood-Gluco se Meter (RELION PRIME METER) [facility] 07-29 00:00: 00 Yes [id number] Use as directed [facility] lancets 33 gauge [facility] 07-29 00:00: 00 Yes [id number] Use as directed [facility] Blood-Gluco se Meter (RELION PRIME METER) [facility] 07-29 00:00: 00 Yes [id number] Use as directed [facility] blood sugar diagnostic (RELION PRIME TEST STRIPS) strip 07-29 00:00: 00 Yes [id number] Use as directed [facility] insulin detemir U-100 (LEVEMIR U-100 INSULIN) 100 unit/mL injection 07-29 00:00: 00 07-07 00:00 :00 No [id number] 40U inject 40 Units under the skin every evening. [facility] insulin detemir U-100 (LEVEMIR U-100 INSULIN) 100 unit/mL injection 07-29 00:00: 00 07-07 00:00 :00 No [id number] 50U inject 50 Units under the skin every morning and inject 40 Units under the skin every evening. [facility] insulin aspart RAPID (NOVOLOG U-100 INSULIN ASPART) 100 unit/mL injection 07-29 00:00: 00 07-07 00:00 :00 No [id number] 28U inject 28 Units under the skin 3 (three) times daily with meals. [facility] simvastatin 20 mg tablet 07-29 00:00: 00 10-28 04:59 :00 No [id number] 80mg Take 4 tablets by mouth every evening for 90 days. [facility] doxycycline hyclate 100 mg capsule 07-29 00:00: 00 08-06 04:59 :00 No [id number] 100mg Take 1 capsule by mouth 2 (two) times daily for 7 days. [facility] insulin glargine (LANTUS U-100) injection 20 Units 07-28 23:00: 00 07-28 22:22 :00 No 20U 20 Units, Subcutaneo us, ONCE NOW, 1 dose, On Wed07/28/21 at 1800, Routine [facility] insulin lispro (human) (HumaLOG U-100) injection 16 Units 07-28 22:00: 00 07-29 13:36 :35 No 16U 16 Units, Subcutaneo us, TID MEALS, First dose (after last modificati on) on Wed07/28/21 at 1700, Until Discontinu ed, Routine [facility] Sliding Scale Insulin - Lispro (HumaLOG) + Fsbg Testing 07-28 21:00: 00 Yes Subcutaneo us, Q4H, First dose (after last modificati on) on Wed07/28/21 at 1600, Until Discontinu ed, Routine [facility] insulin glargine (LANTUS U-100) injection 15 Units 07-28 19:45: 00 07-28 20:25 :00 No 15U 15 Units, Subcutaneo us, ONCE, 1 dose, On Wed07/28/21 at 1445, Routine [facility] Sliding Scale Insulin - Lispro (HumaLOG) + Fsbg Testing 07-28 17:00: 00 07-28 19:38 :59 No Subcutaneo us, Q4H, First dose (after last modificati on) on Wed07/28/21 at 1200, Until Discontinu ed, Routine [facility] insulin glargine (LANTUS U-100) injection 35 Units 07-28 14:30: 00 07-28 19:38 :59 No 35U 35 Units, Subcutaneo us, Q24H, First dose (after last modificati on) on Wed07/28/21 at 0930, Until Discontinu ed, Routine [facility] chlorthalid one (HYGROTON) tablet 12.5 mg 07-28 14:00: 00 Yes 12.5mg 12.5 mg, Oral, DAILY, First dose on Wed07/28/21 at 0900, Until Discontinu ed, Routine [facility] insulin lispro (human) (HumaLOG U-100) injection 12 Units 07-28 13:30: 00 07-28 19:38 :59 No 12U 12 Units, Subcutaneo us, TID MEALS, First dose (after last modificati on) on Wed07/28/21 at 0830, Until Discontinu ed, Routine [facility] dextrose 10% (D10W) bolus infusion 250 mL 07-28 12:24: 57 Yes 250mL 250 mL, IV Infusion, PRN - SEE INSTRUCTIO NS, Administer over 60 Minutes, BG < 60 and not able to take PO intake, Starting on Wed07/28/21 at 0724
De xtrose 10% 250 mL bag contains:& nbsp;10 gm = 100 mL 20 gm = 200 mL 25 gm = 250 mL (whole bag) The maximum rate at which dextrose can be infused without producing glycosuria is 0.5 g/kg/hour. &nbs p;BUD: If wrapper is open bag is good for 30 days at room temperatur e. <b r> [facility] glucagon (GLUCAGEN DIAGNOSTIC KIT) injection 1 mg 07-28 12:24: 53 Yes 1mg 1 mg, Intramuscu lar, PRN, Starting on Wed07/28/21 at 0724, Until Discontinu ed, FREDERICK, Blood Glucose < or = 70 mg/dL and patient is unable to swallow or has mental changes. [facility] ondansetron (ZOFRAN) tablet 4 mg 07-28 12:15: 26 Yes 4mg 4 mg, Oral, Q8HPRN, Starting on Wed07/28/21 at 0715, Until Discontinu ed, Routine, Nausea and Vomiting (N/V) [facility] maalox:diph enhydrAMINE :lidocaine 2 % viscous 1:1:1 (FIRST-MOUT HWASH BLM) oral suspension 15 mL 07-28 12:00: 00 07-28 11:10 :00 No 15mL 15 mL, Oral, ONCE, 1 dose, On Wed07/28/21 at 0700, [facility] - lispro (humaLOG) + Fsbg Testing 07-28 05:00: 00 07-28 12:26 :13 No Subcutaneo us, Q4H, First dose (after last modificati on) on Wed07/28/21 at 0000, Until Discontinu ed, Routine [facility] atorvastati n (LIPITOR) tablet 80 mg 07-28 02:00: 00 Yes 80mg 80 mg, Oral, QHS, First dose on 07/27/21 at 2100, Until Discontinu ed, Routine [facility] doxycycline hyclate (Vibramycin ) capsule 100 mg 07-27 23:00: 00 Yes 100mg 100 mg, Oral, Q12HA2, First dose on Wed07/27/21 at 1800, Until Discontinu ed, FREDERICK
Re ason for Anti-Infec tive: Documented Infection< br>Documen monty Infection Site: Skin / Soft Tissue
Duration of Therapy: 7 days [facility] Sliding Scale Insulin - lispro (humaLOG) + Fsbg Testing 07-27 17:00: 00 07-28 02:07 :56 No Subcutaneo us, Q4H, First dose on Wed07/27/21 at 1200, Until Discontinu ed, Routine [facility] enoxaparin (LOVENOX) injection 40 mg 07-27 14:00: 00 Yes 40mg 40 mg, Subcutaneo us, DAILY, First dose on 6/19/22 at 0900, Until Discontinu ed, Routine Univers [facility] losartan (COZAAR) tablet 50 mg 07-27 14:00: 00 Yes 50mg 50 mg, Oral, DAILY, First dose on 07/27/21 at 0900, Until Discontinu ed, Routine Univers [facility] famotidine (PEPCID AC) tablet 20 mg 07-27 13:00: 00 Yes 20mg 20 mg, Oral, BID, First dose on 07/27/21 at 0800, Until Discontinu ed, Routine
Indicatio n for use: None of the above [facility] NaCl 0.45% (1/2NS) 1000 mL + KCL 20 mEq 07-27 04:00: 00 07-27 19:46 :30 No 1000mL [facility] D5W 0.45% NaCl (1/2NS) 1 L + KCL 20 mEq 07-27 03:50: 46 07-27 19:46 :23 No IV Infusion, at 200 mL/hr, PRN - SEE INSTRUCTIO NS, Starting on 07/26/21 at 2250, Until 07/27/21 at 1446, FREDERICK, Blood glucose control [facility] Losartan Potassium 50 MG Losartan Potassium 50 MG No 1{table t} QD Losartan Potassium 50 MG Omeprazole 40 MG Omeprazole 40 MG No QD Omeprazole 40 MG Allopurinol 300 MG Allopurinol 300 MG No 1{table t} QD Allopurino l 300 MG ReliOn Prime Test - ReliOn Prime Test - No ReliOn Prime Test - Fenofibrate Micronized 67 MG Fenofibrate Micronized 67 MG No 1{capsu le_with _a_meal } QD Fenofibrat e Micronized 67 MG Lancets 33G - Lancets 33G - No Lancets 33G - Gabapentin 100 MG Gabapentin 100 MG No 1{capsu le} QD Gabapentin 100 MG Immunizations Ordered Immunization Name Filled Immunization Name Date Status Comments Source Flucelvax - single dose syringe Flucelvax - single dose syringe 2021-12-15 14:51:00 [facility] Fluzone Fluzone 2019-02-27 15:16:00 [facility] Fluzone Fluzone 2019-02-27 15:16:00 Completed [facility] Fluzone Fluzone 2019-02-27 15:16:00 Completed [facility] Adacel (Tdap) Adacel (Tdap) 2019-02-27 15:15:00 Completed [facility] Adacel (Tdap) Adacel (Tdap) 2019-02-27 15:15:00 Completed [facility] Adacel (Tdap) Adacel (Tdap) 2019-02-27 15:15:00 Completed [facility] TDAP > 7 Years-Adacel TDAP > 7 Years-Adacel 2019-02-27 00:00:00 Completed [facility] Fluzone Fluzone 2019-02-27 00:00:00 Completed [facility] SARS-COV-2 COVID-19 PFIZER, 6MO-4YRS, 0.2ML SHARON-SUCROSE VACCINE Unknown Completed [facility] Influenza Virus Vaccine - Whole Unknown Completed [facility] SARS-COV-2 COVID-19 PFIZER, 6MO-4YRS, 0.2ML SHARON-SUCROSE VACCINE Unknown Completed [facility] Influenza Virus Vaccine - Whole Unknown Completed [facility] SARS-COV-2 COVID-19 PFIZER, 6MO-4YRS, 0.2ML SHARON-SUCROSE VACCINE Unknown Completed [facility] Influenza Virus Vaccine - Whole Unknown Completed [facility] SARS-COV-2 COVID-19 PFIZER, 6MO-4YRS, 0.2ML SHARON-SUCROSE VACCINE Unknown Completed [facility] Influenza Virus Vaccine - Whole Unknown Completed [facility] SARS-COV-2 COVID-19 PFIZER, 6MO-4YRS, 0.2ML SHARON-SUCROSE VACCINE Unknown Completed [facility] Influenza Virus Vaccine - Whole Unknown Completed [facility] SARS-COV-2 COVID-19 PFIZER, 6MO-4YRS, 0.2ML SHARON-SUCROSE VACCINE Unknown Completed [facility] Influenza Virus Vaccine - Whole Unknown Completed [facility] SARS-COV-2 COVID-19 PFIZER, 6MO-4YRS, 0.2ML SHARON-SUCROSE VACCINE Unknown Completed [facility] Influenza Virus Vaccine - Whole Unknown Completed [facility] SARS-COV-2 COVID-19 PFIZER, 6MO-4YRS, 0.2ML SHARON-SUCROSE VACCINE Unknown Completed [facility] Influenza Virus Vaccine - Whole Unknown Completed [facility] Fluzone Fluzone Unknown Completed [facility] Flucelvax - single dose syringe Flucelvax - single dose syringe Unknown Completed [facility] Adacel (Tdap) Adacel (Tdap) Unknown Completed [facility] Fluzone Fluzone Unknown Completed [facility] Flucelvax - single dose syringe Flucelvax - single dose syringe Unknown Completed [facility] Adacel (Tdap) Adacel (Tdap) Unknown Completed [facility] Fluzone Fluzone Unknown Completed [facility] Flucelvax - single dose syringe Flucelvax - single dose syringe Unknown Completed [facility] Adacel (Tdap) Adacel (Tdap) Unknown Completed [facility] Fluzone Fluzone Unknown Completed [facility] Flucelvax (ccIIV4) - SDS - 0.5mL Flucelvax (ccIIV4) - SDS - 0.5mL Unknown Completed [facility] Adacel (Tdap) Adacel (Tdap) Unknown Completed [facility] Fluzone Fluzone Unknown Completed [facility] Flucelvax (ccIIV4) - SDS - 0.5mL Flucelvax (ccIIV4) - SDS - 0.5mL Unknown Completed [facility] Adacel (Tdap) Adacel (Tdap) Unknown Completed [facility] Fluzone Fluzone Unknown Completed [facility] Flucelvax (ccIIV4) - SDS - 0.5mL Flucelvax (ccIIV4) - SDS - 0.5mL Unknown Completed [facility] Adacel (Tdap) Adacel (Tdap) Unknown Completed [facility] Fluzone Fluzone Unknown Completed [facility] Flucelvax (ccIIV4) - SDS - 0.5mL Flucelvax (ccIIV4) - SDS - 0.5mL Unknown Completed [facility] Adacel (Tdap) Adacel (Tdap) Unknown Completed [facility] Fluzone Fluzone Unknown Completed [facility] Flucelvax (ccIIV4) - SDS - 0.5mL Flucelvax (ccIIV4) - SDS - 0.5mL Unknown Completed [facility] Adacel (Tdap) Adacel (Tdap) Unknown Completed [facility] Vital Signs Vital Name Observation Time Observation Value Comments S ource height 2023-10-15 08:00:00 67.50 [in_i] Com [facility] weight 2023-10-15 08:00:00 235 [lb_av] Comm on [facility] temperature 2023-10-15 08:00:00 97.9 [degF] Com [facility] bmi 2023-10-15 08:00:00 36.26 kg/m2 Comm on [facility] oximetry 2023-10-15 08:00:00 96 % Commo n [facility] respiratory rate 2023-10-15 08:00:00 18 /min [facility] blood pressure systolic 2023-10-15 08:00:00 118 mm[Hg] [facility] blood pressure diastolic 2023-10-15 08:00:00 68 mm[Hg] [facility] height 2023-09-17 08:40:00 67.50 [in_i] Com [facility] weight 2023-09-17 08:40:00 225.2 [lb_av] Co mmon [facility] temperature 2023-09-17 08:40:00 98.6 [degF] Com [facility] bmi 2023-09-17 08:40:00 34.75 kg/m2 Comm on [facility] oximetry 2023-09-17 08:40:00 97 % Commo n [facility] respiratory rate 2023-09-17 08:40:00 16 /min [facility] blood pressure systolic 2023-09-17 08:40:00 135 mm[Hg] [facility] blood pressure diastolic 2023-09-17 08:40:00 78 mm[Hg] [facility] height 2023-09-03 08:20:00 67.50 [in_i] Com [facility] weight 2023-09-03 08:20:00 226.6 [lb_av] Co [facility] temperature 2023-09-03 08:20:00 97.9 [degF] Com [facility] bmi 2023-09-03 08:20:00 34.96 kg/m2 Comm on [facility] oximetry 2023-09-03 08:20:00 98 % Commo n [facility] respiratory rate 2023-09-03 08:20:00 16 /min [facility] blood pressure systolic 2023-09-03 08:20:00 130 mm[Hg] [facility] blood pressure diastolic 2023-09-03 08:20:00 87 mm[Hg] [facility] Systolic blood pressure 2023-08-19 16:16:00 114 mm[Hg] [facility] Diastolic blood pressure 2023-08-19 16:16:00 63 mm[Hg] [facility] Heart rate 2023-08-19 16:16:00 75 /min [facility] Respiratory rate 2023-08-19 16:16:00 15 /min [facility] Oxygen saturation in Arterial blood by Pulse oximetry 2023-08-19 16:16:00 97 /min [facility] Body temperature 2023-08-19 16:13:00 35.89 Sarah [facility] Body weight 2023-08-19 09:00:00 96.48 kg [facility] BMI 2023-08-19 09:00:00 32.34 kg/m2 [facility] Body height 2023-08-17 01:28:00 172.7 cm [facility] Systolic blood pressure 2023-08-14 15:00:00 141 mm[Hg] [facility] Diastolic blood pressure 2023-08-14 15:00:00 81 mm[Hg] [facility] Heart rate 2023-08-14 15:00:00 91 /min Unive [facility] Respiratory rate 2023-08-14 15:00:00 17 /min [facility] Oxygen saturation in Arterial blood by Pulse oximetry 2023-08-14 15:00:00 96 /min [facility] Body temperature 2023-08-14 12:24:00 36.17 Sarah [facility] Body weight 2023-08-13 08:56:00 95.391 kg [facility] BMI 2023-08-13 08:56:00 42.48 kg/m2 [facility] Body height 2023-08-12 13:37:00 149.9 cm [facility] Systolic blood pressure 2023-07-29 17:00:00 134 mm[Hg] [facility] Diastolic blood pressure 2023-07-29 17:00:00 85 mm[Hg] [facility] Heart rate 2023-07-29 17:00:00 78 /[facility] Oxygen saturation in Arterial blood by Pulse oximetry 2023-07-29 17:00:00 96 /min [facility] Body temperature 2023-07-29 16:36:00 36.39 Sarah [facility] Body weight 2023-07-29 09:00:00 102.513 kg [facility] BMI 2023-07-29 09:00:00 34.36 kg/m2 [facility] Respiratory rate 2023-07-29 00:00:00 10 /min [facility] Body height 2023-07-27 07:28:00 172.7 cm [facility] height 2023-04-27 15:40:00 67.50 [in_i] Com [facility] weight 2023-04-27 15:40:00 252.6 [lb_av] Co mmon [facility] temperature 2023-04-27 15:40:00 97.9 [degF] Com [facility] bmi 2023-04-27 15:40:00 38.97 kg/m2 Comm on [facility] oximetry 2023-04-27 15:40:00 98 % Commo n [facility] respiratory rate 2023-04-27 15:40:00 18 /min [facility] blood pressure systolic 2023-04-27 15:40:00 132 mm[Hg] [facility] blood pressure diastolic 2023-04-27 15:40:00 88 mm[Hg] [facility] Systolic blood pressure 2023-04-22 16:47:00 148 mm[Hg] [facility] Diastolic blood pressure 2023-04-22 16:47:00 93 mm[Hg] [facility] Heart rate 2023-04-22 16:47:00 63 /min [facility] Body temperature 2023-04-22 16:47:00 36.61 Sarah [facility] Respiratory rate 2023-04-22 16:47:00 18 /min [facility] Oxygen saturation in Arterial blood by Pulse oximetry 2023-04-22 16:47:00 97 /min [facility] Body weight 2023-04-22 08:44:00 114.488 kg [facility] BMI 2023-04-22 08:44:00 38.38 kg/m2 [facility] Body height 2023-04-20 01:53:00 172.7 cm [facility] height 2022-12-17 09:10:00 67.50 [in_i] Com [facility] weight 2022-12-17 09:10:00 261.6 [lb_av] Co [facility] temperature 2022-12-17 09:10:00 98.2 [degF] Com [facility] bmi 2022-12-17 09:10:00 40.36 kg/m2 Comm on [facility] oximetry 2022-12-17 09:10:00 92 % Commo n [facility] respiratory rate 2022-12-17 09:10:00 16 /min [facility] blood pressure systolic 2022-12-17 09:10:00 126 mm[Hg] [facility] blood pressure diastolic 2022-12-17 09:10:00 78 mm[Hg] [facility] height 2022 09:00:00 67.50 [in_i] Com [facility] weight 2022 09:00:00 258.5 [lb_av] Co [facility] temperature 2022 09:00:00 97.8 [degF] Com [facility] bmi 2022 09:00:00 39.88 kg/m2 Comm on [facility] oximetry 2022 09:00:00 96 % Commo n [facility] respiratory rate 2022 09:00:00 17 /min [facility] blood pressure systolic 2022 09:00:00 120 mm[Hg] Common [facility] blood pressure diastolic 2022 09:00:00 72 mm[Hg] [facility] Systolic blood pressure 2022-07-08 12:26:00 151 mm[Hg] [facility] Diastolic blood pressure 2022-07-08 12:26:00 86 mm[Hg] [facility] Heart rate 2022-07-08 12:26:00 77 /min [facility] Oxygen saturation in Arterial blood by Pulse oximetry 2022-07-08 12:26:00 96 /min [facility] Body temperature 2022-07-08 12:25:00 37.06 Sarah [facility] Respiratory rate 2022-07-08 08:12:00 18 /min [facility] Body height 2022-07-06 03:16:00 172.7 cm [facility] Body weight 2022-07-06 03:16:00 104.781 kg [facility] BMI 2022-07-06 03:16:00 35.12 kg/m2 [facility] height 2022-05-21 09:00:00 67.50 [in_i] Com [facility] weight 2022-05-21 09:00:00 262 [lb_av] Comm on [facility] temperature 2022-05-21 09:00:00 97.9 [degF] Com [facility] bmi 2022-05-21 09:00:00 40.42 kg/m2 Comm on [facility] oximetry 2022-05-21 09:00:00 95 % Commo n [facility] respiratory rate 2022-05-21 09:00:00 16 /min Common [facility] blood pressure systolic 2022-05-21 09:00:00 138 mm[Hg] Common [facility] blood pressure diastolic 2022-05-21 09:00:00 75 mm[Hg] Common [facility] height 2021-12-15 14:30:00 67.50 [in_i] Com [facility] weight 2021-12-15 14:30:00 250.2 [lb_av] Co mmon [facility] temperature 2021-12-15 14:30:00 97.2 [degF] Com [facility] bmi 2021-12-15 14:30:00 38.6 kg/m2 Commo n [facility] oximetry 2021-12-15 14:30:00 96 % Commo n [facility] respiratory rate 2021-12-15 14:30:00 17 /min Common [facility] blood pressure systolic 2021-12-15 14:30:00 132 mm[Hg] Common [facility] blood pressure diastolic 2021-12-15 14:30:00 76 mm[Hg] [facility] height 2021-09-16 13:30:00 67.50 [in_i] Com [facility] weight 2021-09-16 13:30:00 237.8 [lb_av] Co [facility] temperature 2021-09-16 13:30:00 97.0 [degF] Com [facility] bmi 2021-09-16 13:30:00 36.69 kg/m2 Comm on [facility] oximetry 2021-09-16 13:30:00 98 % Commo n [facility] respiratory rate 2021-09-16 13:30:00 18 /min [facility] blood pressure systolic 2021-09-16 13:30:00 131 mm[Hg] Common [facility] blood pressure diastolic 2021-09-16 13:30:00 75 mm[Hg] [facility] height 2021-08-20 13:50:00 67.50 [in_i] Com [facility] weight 2021-08-20 13:50:00 247.2 [lb_av] Co [facility] temperature 2021-08-20 13:50:00 97.9 [degF] Com [facility] bmi 2021-08-20 13:50:00 38.14 kg/m2 Comm on [facility] oximetry 2021-08-20 13:50:00 97 % Commo n [facility] respiratory rate 2021-08-20 13:50:00 17 /min [facility] blood pressure systolic 2021-08-20 13:50:00 137 mm[Hg] [facility] blood pressure diastolic 2021-08-20 13:50:00 79 mm[Hg] [facility] height 2021-07-30 10:40:00 67.50 [in_i] Com [facility] weight 2021-07-30 10:40:00 244.1 [lb_av] Co mmon [facility] temperature 2021-07-30 10:40:00 97.5 [degF] Com [facility] bmi 2021-07-30 10:40:00 37.66 kg/m2 Comm on [facility] oximetry 2021-07-30 10:40:00 98 % Commo n [facility] respiratory rate 2021-07-30 10:40:00 18 /min [facility] blood pressure systolic 2021-07-30 10:40:00 121 mm[Hg] [facility] blood pressure diastolic 2021-07-30 10:40:00 77 mm[Hg] [facility] Systolic blood pressure 2021-07-29 20:58:00 137 mm[Hg] [facility] Diastolic blood pressure 2021-07-29 20:58:00 76 mm[Hg] [facility] Heart rate 2021-07-29 20:58:00 73 /min [facility] Body temperature 2021-07-29 20:58:00 36.83 Sarah [facility] Respiratory rate 2021-07-29 20:58:00 17 /min [facility] Oxygen saturation in Arterial blood by Pulse oximetry 2021-07-29 20:58:00 98 /min [facility] Body height 2021-07-27 17:40:00 172.7 cm [facility] Body weight 2021-07-27 17:40:00 105 kg [facility] BMI 2021-07-27 17:40:00 35.20 kg/m2 [facility] Procedures Procedure Date / Time Performed Performing Clinician Source POCT GLUCOSE (AUTOMATED) 2023-08-19 16:16:00 Martin Vo [facility] POCT GLUCOSE (AUTOMATED) 2023-08-19 12:27:00 Martin Vo [facility] MAGNESIUM 2023-08-19 09:32:00 Vy Vo [facility] BASIC METABOLIC PANEL (NA, K, CL, CO2, GLUCOSE, BUN, CREATININE, CA) 2023-08-19 09:32:00 Vy Vo [facility] POCT GLUCOSE (AUTOMATED) 2023-08-19 02:00:00 Martin Vo [facility] POCT GLUCOSE (AUTOMATED) 2023-08-18 21:10:00 Martin Vo [facility] BASIC METABOLIC PANEL (NA, K, CL, CO2, GLUCOSE, BUN, CREATININE, CA) 2023-08-18 18:35:00 Vy Vo [facility] POCT GLUCOSE (AUTOMATED) 2023-08-18 16:36:00 Martin Vo [facility] POCT GLUCOSE (AUTOMATED) 2023-08-18 14:25:00 Martin Vo [facility] POCT GLUCOSE (AUTOMATED) 2023-08-18 13:31:00 Martin Vo [facility] POCT GLUCOSE (AUTOMATED) 2023-08-18 12:18:00 Martin Vo [facility] URINE CULTURE 2023-08-18 11:16:00 Vy Vo [facility] POCT GLUCOSE (AUTOMATED) 2023-08-18 11:05:00 Martin Vo [facility] POCT GLUCOSE (AUTOMATED) 2023-08-18 10:08:00 Martin Vo [facility] MAGNESIUM 2023-08-18 09:15:00 Vy Vo [facility] BASIC METABOLIC PANEL (NA, K, CL, CO2, GLUCOSE, BUN, CREATININE, CA) 2023-08-18 09:15:00 Vy Vo [facility] CBC WITH DIFF 2023-08-18 09:15:00 Vy Vo [facility] POCT GLUCOSE (AUTOMATED) 2023-08-18 09:14:00 Martin Vo [facility] POCT GLUCOSE (AUTOMATED) 2023-08-18 08:04:00 Martin Vo [facility] POCT GLUCOSE (AUTOMATED) 2023-08-18 07:03:00 Martin Vo [facility] POCT GLUCOSE (AUTOMATED) 2023-08-18 06:05:00 Martin Vo [facility] POCT GLUCOSE (AUTOMATED) 2023-08-18 05:00:00 Martin Vo [facility] POCT GLUCOSE (AUTOMATED) 2023-08-18 04:03:00 Martin Vo michelle [facility] POCT GLUCOSE (AUTOMATED) 2023-08-18 03:09:00 Martin Vo [facility] BASIC METABOLIC PANEL (NA, K, CL, CO2, GLUCOSE, BUN, CREATININE, CA) 2023-08-18 02:38:00 Vy Vo [facility] POCT GLUCOSE (AUTOMATED) 2023-08-18 01:59:00 Martin Vo [facility] POCT GLUCOSE (AUTOMATED) 2023-08-18 01:07:00 Martin Vo [facility] POCT GLUCOSE (AUTOMATED) 2023-08-18 00:14:00 Martin Vo [facility] POCT GLUCOSE (AUTOMATED) 2023-08-17 23:13:00 Martin Vo [facility] POCT GLUCOSE (AUTOMATED) 2023-08-17 21:05:00 Martin Vo [facility] POCT GLUCOSE (AUTOMATED) 2023-08-17 20:06:00 Martin Vo [facility] POCT GLUCOSE (AUTOMATED) 2023-08-17 19:23:00 Martin Vo [facility] MAGNESIUM 2023-08-17 18:48:00 Vy Vo [facility] BASIC METABOLIC PANEL (NA, K, CL, CO2, GLUCOSE, BUN, CREATININE, CA) 2023-08-17 18:48:00 Benjamin Pires [facility] POCT GLUCOSE (AUTOMATED) 2023-08-17 17:55:00 Martin Vo [facility] POCT GLUCOSE (AUTOMATED) 2023-08-17 17:13:00 Martin Vo [facility] POCT GLUCOSE (AUTOMATED) 2023-08-17 16:03:00 Martin Vo [facility] POCT GLUCOSE (AUTOMATED) 2023-08-17 15:04:00 Martin Vo [facility] BASIC METABOLIC PANEL (NA, K, CL, CO2, GLUCOSE, BUN, CREATININE, CA) 2023-08-17 14:36:00 Benjamin Pires [facility] POCT GLUCOSE (AUTOMATED) 2023-08-17 14:11:00 Martin Vo [facility] POCT GLUCOSE (AUTOMATED) 2023-08-17 13:04:00 Martin Vo [facility] POCT GLUCOSE (AUTOMATED) 2023-08-17 12:02:00 Martin Vo [facility] POCT GLUCOSE (AUTOMATED) 2023-08-17 11:48:00 Martin Vo [facility] BASIC METABOLIC PANEL (NA, K, CL, CO2, GLUCOSE, BUN, CREATININE, CA) 2023-08-17 11:03:00 Benjamin Pires [facility] POCT GLUCOSE (AUTOMATED) 2023-08-17 11:03:00 Martin Vo [facility] WOUND/ASPIRATE OR ABSCESS CULTURE 2023-08-17 10:07:00 Benjamin Pires [facility] WOUND CULTURE 2023-08-17 10:07:00 Benjamin Pires [facility] POCT GLUCOSE (AUTOMATED) 2023-08-17 10:00:00 Martin Vo [facility] POCT GLUCOSE (AUTOMATED) 2023-08-17 08:57:00 Martin Vo [facility] MAGNESIUM 2023-08-17 08:07:00 Benjamin Pires [facility] BASIC METABOLIC PANEL (NA, K, CL, CO2, GLUCOSE, BUN, CREATININE, CA) 2023-08-17 08:07:00 Benjamin Pires [facility] CBC WITH DIFF 2023-08-17 08:07:00 Benjamin Pires [facility] POCT GLUCOSE (AUTOMATED) 2023-08-17 08:04:00 Martin Vo [facility] POCT GLUCOSE (AUTOMATED) 2023-08-17 06:58:00 Martin Vo [facility] POCT GLUCOSE (AUTOMATED) 2023-08-17 06:03:00 Martin Vo [facility] BASIC METABOLIC PANEL (NA, K, CL, CO2, GLUCOSE, BUN, CREATININE, CA) 2023-08-17 05:14:00 Benjamin Pires [facility] POCT GLUCOSE (AUTOMATED) 2023-08-17 05:10:00 Martin Vo [facility] POCT GLUCOSE (AUTOMATED) 2023-08-17 04:01:00 Martin Vo [facility] [facility] PHOSPHORUS 2023-08-17 02:55:00 Benjamin Piers [facility] MAGNESIUM 2023-08-17 02:55:00 Benjamin Pires [facility] OSMOLALITY, SERUM OR PLASMA 2023-08-17 02:55:00 Pranay [facility] BASIC METABOLIC PANEL (NA, K, CL, CO2, GLUCOSE, BUN, CREATININE, CA) 2023-08-17 02:55:00 Pranay [facility] URINE DRUG (IMMUNOASSAY) - COMPREHENSIVE DRUG SCREEN 2023-08-17 02:55:00 Pranay [facility] GLYCOSYLATED HEMOGLOBIN (A1C) 2023-08-17 02:55:00 Pranay [facility] URINALYSIS 2023-08-17 02:55:00 Benjamin Pires [facility] MRSA / MSSA SCREEN BY ROSS HERNANDEZ 2023-08-17 02:55:00 Pranay [facility] COVID-19 (ID NOW RAPID TESTING) 2023-08-17 02:55:00 Benjamin Pires [facility] LAB ONLY COVID INTERPRETATION 2023-08-17 02:55:00 Benjamin Pires [facility] POCT GLUCOSE (AUTOMATED) 2023-08-17 02:52:00 Martin Vo [facility] ACUTE CARE ARTERIAL BLOOD GAS 2023-08-17 02:49:00 Benjamin Pires [facility] POCT GLUCOSE (AUTOMATED) 2023-08-17 01:36:00 Martin Vo [facility] POCT GLUCOSE (AUTOMATED) 2023-08-14 12:35:00 [facility]OLIC [facility] (NA, K, CL, CO2, GLUCOSE, BUN, CREATININE, CA) 2023-08-14 08:10[facility]00 [facility] 2023-08-14 08:10:00 Vy Vo [facility] POCT GLUCOSE (AUTOMATED) 2023-08-14 02:20:00 [place] Pires [facility] POCT GLUCOSE (AUTOMATED) 2023-08-13 21:28:00 [place] Pires [facility] POCT GLUCOSE (AUTOMATED) 2023-08-13 18:44:00 [place] Pires [facility] POCT GLUCOSE (AUTOMATED) 2023-08-13 17:44:00 [place] Pires [facility] BASIC METABOLIC PANEL (NA, K, CL, CO2, GLUCOSE, BUN, CREATININE, CA) 2023-08-13 17:28:00 Vy Vo [facility] POCT GLUCOSE (AUTOMATED) 2023-08-13 16:38:00 [place] Pires [facility] POCT GLUCOSE (AUTOMATED) 2023-08-13 15:46:00 [place] Pires [facility] POCT GLUCOSE (AUTOMATED) 2023-08-13 14:46:00 [place] Pires [facility] BASIC METABOLIC PANEL (NA, K, CL, CO2, GLUCOSE, BUN, CREATININE, CA) 2023-08-13 14:27:00 Benjamin Pires [facility] POCT GLUCOSE (AUTOMATED) 2023-08-13 13:44:00 [facility] ([facility]ATED) 2023-08-13 12:44:00 [place] Pires [facility] POCT GLUCOSE (AUTOMATED) 2023-08-13 11:40:00 [place] Pires [facility] POCT GLUCOSE (AUTOMATED) 2023-08-13 10:45:00 [place] Pires [facility] LIPASE 2023-08-13 09:49:00 Benjamin Pires [facility] BASIC METABOLIC PANEL (NA, K, CL, CO2, GLUCOSE, BUN, CREATININE, CA) 2023-08-13 09:49:00 Benjamin Pires [facility] CBC WITH DIFF 2023-08-13 09:49:00 Benjamin Pires [facility] POCT GLUCOSE (AUTOMATED) 2023-08-13 09:45:00 [place] [facility]SE (AUTOMATED) 2023-08-13 08:52:00 [place] Pires [facility] POCT GLUCOSE (AUTOMATED) 2023-08-13 07:41:00 [place] Pires [facility] BASIC METABOLIC PANEL (NA, K, CL, CO2, GLUCOSE, BUN, CREATININE, CA) 2023-08-13 06:51:00 Michelle Crump [facility] POCT GLUCOSE (AUTOMATED) 2023-08-13 06:47:00 [place] Pires [facility] POCT GLUCOSE (AUTOMATED) 2023-08-13 05:46:00 [place] Pires [facility] POCT GLUCOSE (AUTOMATED) 2023-08-13 04:44:00 [place] Pires [facility] BASIC METABOLIC PANEL (NA, K, CL, CO2, GLUCOSE, BUN, CREATININE, CA) 2023-08-13 03:48:00 Benjamin Pires [facility] POCT GLUCOSE (AUTOMATED) 2023-08-13 03:47:00 [place] Pires [facility] POCT GLUCOSE (AUTOMATED) 2023-08-13 02:44:00 [place] Pires [facility] POCT GLUCOSE (AUTOMATED) 2023-08-13 01:52:00 [place] [facility] BASIC METABOLIC PANEL (NA, K, CL, CO2, GLUCOSE, BUN, CREATININE, CA) 2023-08-13 01:00:00 Benjamin Pires [facility] URINE DRUG (IMMUNOASSAY) - COMPREHENSIVE DRUG SCREEN 2023-08-13 01:00:00 Benjamin Pires [facility] POCT GLUCOSE (AUTOMATED) 2023-08-13 00:52:00 [place] Pires [facility] POCT GLUCOSE (AUTOMATED) 2023-08-12 23:44:00 [place] P[place] [facility] POCT GLUCOSE (AUTOMATED) 2023-08-12 22:55:00 [place] Pires [facility] BASIC METABOLIC PANEL (NA, K, CL, CO2, GLUCOSE, BUN, CREATININE, CA) 2023-08-12 21:47:00 Benjamin Pires [facility] POCT GLUCOSE (AUTOMATED) 2023-08-12 21:47:00 [place] Pires [facility] POCT GLUCOSE (AUTOMATED) 2023-08-12 20:40:00 [place] P[place] [facility] XR CHEST 1 VW 2023-08-12 19:53:00 Benjamin Pires [facility] POCT GLUCOSE (AUTOMATED) 2023-08-12 19:42:00 [place] P[place] [facility] POCT GLUCOSE (AUTOMATED) 2023-08-12 18:30:00 [place] Pires [facility] BASIC METABOLIC PANEL (NA, K, CL, CO2, GLUCOSE, BUN, CREATININE, CA) 2023-08-12 18:23:00 Benjamin Pires [facility] MRSA / MSSA SCREEN BY PCRROSS 2023-08-12 18:23:00 Benjamin Pires [facility] POCT GLUCOSE (AUTOMATED) 2023-08-12 17:30:00 [place] Pires [facility] POCT GLUCOSE (AUTOMATED) 2023-08-12 16:32:00 [place] Pires [facility] OSMOLALITY, SERUM OR PLASMA 2023-08-12 16:00:00 Benjamin Pires [facility] BETA HYDROXY-BUTYRATE 2023-08-12 16:00:00 Josh Pires [facility] BASIC METABOLIC PANEL (NA, K, CL, CO2, GLUCOSE, BUN, CREATININE, CA) 2023-08-12 16:00:00 Benjamin Pires [facility] AMMONIA, PLASMA 2023-08-12 15:36:00 Benjamin Pires [facility] AC PANEL 21 + LACTIC ACID 2023-08-12 15:36:00 Rachel Feldman [facility] POCT GLUCOSE (AUTOMATED) 2023-08-12 15:12:00 Rachel Feldman [facility] POCT GLUCOSE (AUTOMATED) 2023-08-12 14:21:00 Rachel Feldman [facility] URINALYSIS 2023-08-12 14:05:00 [facility] 2023-08-12 13:44:[address] [facility] LIPASE 2023-08-12 13:44:[address] [facility] MAGNESIUM 2023-08-12 13:44:00 Rachel Feldman [facility] TROPONIN I 2023-08-12 13:44:00 Rachel Feldman [facility] COMP. METABOLIC PANEL (38008) 2023-08-12 13:44:00 Rachel Feldman [facility] LIPID PANEL ([id number])(TOTAL CHOLESTEROL, TRIGLYCERIDES, HDL) 2023-08-12 13:44:00 Benjamin Pires [facility] CBC WITH DIFF 2023-08-12 13:44:00 Rachel Feldman [facility] GLYCOSYLATED HEMOGLOBIN (A1C) 2023-08-12 13:44:00 Rachel Feldman [facility] AC PANEL 21 + LACTIC ACID 2023-08-12 13:44:00 Rachel Feldman [facility] LOW-DENSITY LIPOPROTEIN, DIRECT 2023-08-12 13:44:00 Benjamin Pires [facility] POCT GLUCOSE (AUTOMATED) 2023-08-12 13:38:00 Rachel Feldman [facility] CRITICAL CARE 2023-08-12 13:36:00 Rachel Feldman [facility] POCT GLUCOSE (AUTOMATED) 2023-07-29 16:34:00 Savannah Crump [facility] POCT GLUCOSE (AUTOMATED) 2023-07-29 12:30:00 Savannah Crump. [facility] MAGNESIUM 2023-07-29 12:00:00 Benjamin Pires [facility] BASIC METABOLIC PANEL (NA, K, CL, CO2, GLUCOSE, BUN, CREATININE, CA) 2023-07-29 12:00:00 Benjamin Pires [facility] CBC WITH DIFF 2023-07-29 09:11:00 Benjamin Pires [facility] POCT GLUCOSE (AUTOMATED) 2023-07-29 02:09:00 Savannah Crump [facility] POCT GLUCOSE (AUTOMATED) 2023-07-28 21:29:00 Savannah Crump [facility] POCT GLUCOSE (AUTOMATED) 2023-07-28 16:38:00 Savannah Crump [facility] POCT GLUCOSE (AUTOMATED) 2023-07-28 13:05:00 Savannah Crump [facility] POCT GLUCOSE (AUTOMATED) 2023-07-28 09:09:00 Savannah Crump. [facility] MAGNESIUM 2023-07-28 09:06:00 Benjamin Pires [facility] COMP. METABOLIC PANEL ([id number]) 2023-07-28 09:06:00 Michelle Crump [facility] CBC WITH DIFF 2023-07-28 09:06:00 Benjamin Pires [facility] POCT GLUCOSE (AUTOMATED) 2023-07-28 05:04:00 Savannah Crump [facility] POCT GLUCOSE (AUTOMATED) 2023-07-28 03:00:00 Savannah Crump [facility] POCT GLUCOSE (AUTOMATED) 2023-07-28 02:00:00 Savannah Crump [facility] POCT GLUCOSE (AUTOMATED) 2023-07-28 01:04:00 Savannah Crump [facility] BASIC METABOLIC PANEL (NA, K, CL, CO2, GLUCOSE, BUN, CREATININE, CA) 2023-07-28 00:56:00 Benjamin Pires [facility] POCT GLUCOSE (AUTOMATED) 2023-07-28 00:02:00 Savannah Crump [facility] POCT GLUCOSE (AUTOMATED) 2023-07-27 23:01:00 Savannah Crump [facility] POCT GLUCOSE (AUTOMATED) 2023-07-27 22:00:00 Savannah Crump [facility] BASIC METABOLIC PANEL (NA, K, CL, CO2, GLUCOSE, BUN, CREATININE, CA) 2023-07-27 21:17:00 Benjamin Pires [facility] POCT GLUCOSE (AUTOMATED) 2023-07-27 21:15:00 Savannah Crump [facility] POCT GLUCOSE (AUTOMATED) 2023-07-27 20:06:00 Savannah Crump [facility] POCT GLUCOSE (AUTOMATED) 2023-07-27 19:06:00 Savannah Crump [facility] POCT GLUCOSE (AUTOMATED) 2023-07-27 18:03:00 Savannah Crump [facility] BASIC METABOLIC PANEL (NA, K, CL, CO2, GLUCOSE, BUN, CREATININE, CA) 2023-07-27 17:04:00 Benjamin Pires [facility] POCT GLUCOSE (AUTOMATED) 2023-07-27 17:02:00 Savannah Crump [facility] POCT GLUCOSE (AUTOMATED) 2023-07-27 16:04:00 Savannah Crump [facility] POCT GLUCOSE (AUTOMATED) 2023-07-27 15:00:00 Savannah Crump [facility] POCT GLUCOSE (AUTOMATED) 2023-07-27 14:01:00 Savannah Crump [facility] POCT GLUCOSE (AUTOMATED) 2023-07-27 13:01:00 Savannah Crump [facility] POCT GLUCOSE (AUTOMATED) 2023-07-27 12:07:00 Savannah Crump [facility] BASIC METABOLIC PANEL (NA, K, CL, CO2, GLUCOSE, BUN, CREATININE, CA) 2023-07-27 11:24:00 Michelle Crump [facility] POCT GLUCOSE (AUTOMATED) 2023-07-27 11:04:00 Savannah Crump [facility] POCT GLUCOSE (AUTOMATED) 2023-07-27 09:56:00 Taylor [facility] BETA HYDROXY-BUTYRATE 2023-07-27 08:49:00 [facility]-27 08:49:00 Taylor [facility] POCT GLUCOSE (AUTOMATED) 2023-07-27 08:49:[address] [facility] [address] [facility]EL[facility]AST 2023-07-27 08:17:18 Taylor [facility] AC PANEL 20 + LACTIC ACID 2023-07-27 07:47:00 Taylor [facility] PHOSPHORUS 2023-07-27 07:34:00 Taylor [facility] LIPASE 2023-07-27 07:34:00 Taylor [facility] MAGNESIUM 2023-07-27 07:34:00 Taylor [facility] OSMOLALITY, SERUM OR PLASMA 2023-07-27 07:34:00 [facility] COMP. METABOLIC PANEL ([id number]) 2023-07-27 07:34:00 Taylor [facility] LIPID PANEL (28173)(TOTAL CHOLESTEROL, TRIGLYCERIDES, HDL) 2023-07-27 07:34:00 Taylor [facility] CBC WITH DIFF 2023-07-27 07:34:00 Ab Vazquez [facility] GLYCOSYLATED HEMOGLOBIN (A1C) 2023-07-27 07:34:00 [facility] ([facility]OMATED) 2023-07-27 07:34:00 Ab Vazquez [facility] CRITICAL CARE 2023-07-27 07:24:00 Ab Vazquez [facility] POCT GLUCOSE (AUTOMATED) 2023-04-22 16:59:00 Martin Vo [facility] POCT GLUCOSE (AUTOMATED) 2023-04-22 11:27:00 Martin Vo [facility] LIPASE 2023-04-22 09:05:00 Yolie Matias [facility] MAGNESIUM 2023-04-22 09:05:00 Yolie Matias [facility] BASIC METABOLIC PANEL (NA, K, CL, CO2, GLUCOSE, BUN, CREATININE, CA) 2023-04-22 09:05:00 Yolie Matias [facility] CBC WITH DIFF 2023-04-22 09:05:00 Yolie Matias [facility] POCT GLUCOSE (AUTOMATED) 2023-04-22 05:01:00 Martin Vo [facility] POCT GLUCOSE (AUTOMATED) 2023-04-21 23:31:00 Martin Vo [facility] POCT GLUCOSE (AUTOMATED) 2023-04-21 17:28:00 Martin Vo [facility] POCT GLUCOSE (AUTOMATED) 2023-04-21 11:20:00 Martin Vo [facility] LIPASE 2023-04-21 08:36:00 Frida Wright [facility] HEPATIC FUNCTION PANEL ([id number]) (ALB,T.PRO,BILI T,BU/BC,ALT,AST,ALK PHOS) 2023-04-21 08:36:00 Vy Vo [facility] BASIC METABOLIC PANEL (NA, K, CL, CO2, GLUCOSE, BUN, CREATININE, CA) 2023-04-21 08:36:00 [facility] 2023-04-21 08:36:00 Frida Wright [facility] POCT GLUCOSE (AUTOMATED) 2023-04-21 05:44:00 Martin Vo [facility] POCT GLUCOSE (AUTOMATED) 2023-04-20 21:21:00 Martin Vo [facility] POCT GLUCOSE (AUTOMATED) 2023-04-20 16:49:00 Martin Vo [facility] POCT GLUCOSE (AUTOMATED) 2023-04-20 12:40:00 Martin Vo [facility] LACTIC ACID WHOLE BLOOD 2023-04-20 11:13:00 Ade Ramírez [facility] LIPASE 2023-04-20 08:03:00 Ann[facility] BASIC METABOLIC PANEL (NA, K, CL, CO2, GLUCOSE, BUN, CREATININE, CA) 2023-04-20 08:03:00 Ann-Marie [facility] LIPID PANEL ([id number])(TOTAL CHOLESTEROL, TRIGLYCERIDES, HDL) 2023-04-20 08:03:00 Ann-Marie [facility] CBC WITH DIFF 2023-04-20 08:03:00 Ann-Marie [facility] AC PANEL 21 + LACTIC ACID 2023-04-20 08:03:00 [facility] 2023-04-20 05:02:00 Martin Vo [facility] EXTERNAL PROVIDER RECORDS 2022-07-15 05:01:00 Do ctor Unassigned, [place] [facility] POCT GLUCOSE (AUTOMATED) 2022-07-08 17:45:00 Fracisco Wagner [facility] POCT GLUCOSE (AUTOMATED) 2022-07-08 12:26:00 Fracisco Wagner [facility] POCT GLUCOSE (AUTOMATED) 2022-07-08 01:57:00 Fracisco Wagner [facility] POCT GLUCOSE (AUTOMATED) 2022-07-07 23:07:00 Fracisco Wagner [facility] POCT GLUCOSE (AUTOMATED) 2022-07-07 16:51:00 Fracisco Wagner [facility] POCT GLUCOSE (AUTOMATED) 2022-07-07 13:05:00 Fracisco desouza Kristy [facility] LIPASE 2022-07-07 09:45:00 Osmel Lou [facility] POCT GLUCOSE (AUTOMATED) 2022-07-07 01:42:00 Fracisco lyly Kristy [facility] POCT GLUCOSE (AUTOMATED) 2022-07-06 21:02:00 Fracisco Wagner [facility] POCT GLUCOSE (AUTOMATED) 2022-07-06 17:12:00 Fracisco desouza Kristy [facility] POCT GLUCOSE (AUTOMATED) 2022-07-06 13:04:00 Fracisco Wagner [facility] CBC WITHOUT DIFF 2022-07-06 08:48:00 Laisha Jacques i [facility] GLYCOSYLATED HEMOGLOBIN (A1C) 2022-07-06 08:48:00 Laisha Wagner [facility] LIPASE 2022-07-06 08:32:00 Gaurang Adame [facility] HEPATIC FUNCTION PANEL ([id number]) (ALB,T.PRO,BILI T,BU/BC,ALT,AST,ALK PHOS) 2022-07-06 08:32:00 Gaurang Adame [facility] BASIC METABOLIC PANEL (NA, K, CL, CO2, GLUCOSE, BUN, CREATININE, CA) 2022-07-06 08:32:00 Laisha Wagner [facility] LIPID PANEL ([id number])(TOTAL CHOLESTEROL, TRIGLYCERIDES, HDL) 2022-07-06 08:32:00 Gilda Adameshua [facility] EXTERNAL PROVIDER RECORDS 2021-08-05 05:01:00 Do ctor Unassigned, [place] [facility] POCT GLUCOSE (AUTOMATED) 2021-07-29 17:37:00 Gilda Holman [facility] BASIC METABOLIC PANEL (NA, K, CL, CO2, GLUCOSE, BUN, CREATININE, CA) 2021-07-29 09:36:00 Zoe Burns [facility] POCT GLUCOSE (AUTOMATED) 2021-07-29 09:34:00 Gilda Holman [facility] POCT GLUCOSE (AUTOMATED) 2021-07-29 05:37:00 Gilda Holman [facility] POCT GLUCOSE (AUTOMATED) 2021-07-29 01:45:00 Gilda Holman [facility] POCT GLUCOSE (AUTOMATED) 2021-07-28 22:21:00 Gilda Holman [facility] POCT GLUCOSE (AUTOMATED) 2021-07-28 20:24:00 Gilda Holman [facility] POCT GLUCOSE (AUTOMATED) 2021-07-28 17:12:00 Gilda Holman [facility] POCT GLUCOSE (AUTOMATED) 2021-07-28 13:22:00 Gilda Holman [facility] MRSA / MSSA SCREEN BY ROSS HERNANDEZ 2021-07-28 11:02:00 Tavon Barros [facility] POCT GLUCOSE (AUTOMATED) 2021-07-28 09:10:00 Gilda Holman [facility] POCT GLUCOSE (AUTOMATED) 2021-07-28 05:17:00 Gilda Holman [facility] POCT GLUCOSE (AUTOMATED) 2021-07-28 01:51:00 Gilda Holman [facility] BASIC METABOLIC PANEL (NA, K, CL, CO2, GLUCOSE, BUN, CREATININE, CA) 2021-07-27 22:34:00 Quinton [facility] POCT GLUCOSE (AUTOMATED) 2021-07-27 20:06:00 Gilda Holman [facility] BASIC METABOLIC PANEL (NA, K, CL, CO2, GLUCOSE, BUN, CREATININE, CA) 2021-07-27 18:39:00 Quinton [facility] POCT GLUCOSE (AUTOMATED) 2021-07-27 16:41:00 Gilda Holman [facility] POCT GLUCOSE (AUTOMATED) 2021-07-27 15:39:00 Gilda Holman [facility] POCT GLUCOSE (AUTOMATED) 2021-07-27 14:44:00 Gilda Holman [facility] POCT GLUCOSE (AUTOMATED) 2021-07-27 13:45:00 Nagan, Gilda seph [facility] BASIC METABOLIC PANEL (NA, K, CL, CO2, GLUCOSE, BUN, CREATININE, CA) 2021-07-27 12:33:00 Tavon Barros [facility] POCT GLUCOSE (AUTOMATED) 2021-07-27 12:32:00 Gilda Holman [facility] POCT GLUCOSE (AUTOMATED) 2021-07-27 11:12:00 Gilda Holman [facility] POCT GLUCOSE (AUTOMATED) 2021-07-27 10:07:00 Gilda Holman [facility] FERRITIN SERUM 2021-07-27 09:28:00 Tavon Barros [facility] BASIC METABOLIC PANEL (NA, K, CL, CO2, GLUCOSE, BUN, CREATININE, CA) 2021-07-27 09:28:00 Tavon Barros [facility] LIPID PANEL ([id number])(TOTAL CHOLESTEROL, TRIGLYCERIDES, HDL) 2021-07-27 09:28:00 Tavon Funk [facility] IRON PANEL 2021-07-27 09:28:00 Tavon Barros [facility] POCT GLUCOSE (AUTOMATED) 2021-07-27 09:19:00 Gilda Holman [facility] POCT GLUCOSE (AUTOMATED) 2021-07-27 08:10:00 Gilda Holman [facility] POCT GLUCOSE (AUTOMATED) 2021-07-27 06:55:00 Gilda Holman [facility] BASIC METABOLIC PANEL (NA, K, CL, CO2, GLUCOSE, BUN, CREATININE, CA) 2021-07-27 06:15:00 Tavon Barros [facility] POCT GLUCOSE (AUTOMATED) 2021-07-27 06:13:00 Gilda Holman [facility] POCT GLUCOSE (AUTOMATED) 2021-07-27 04:59:00 Gilda Holman [facility] ACUTE CARE ARTERIAL BLOOD GAS 2021-07-27 04:56:00 Tavon Barros [facility] MICROALBUMIN URINE 2021-07-27 04:47:[address] [facility] 2021-07-27 04:47:00 Tavon Barros [facility] PHOSPHORUS 2021-07-27 03:54:[facility]-07-27 03:54:00 Tavon Barros [facility] OSMOLALITY, SERUM OR PLASMA 2021-07-27 03:54:00 Tavon Barros [facility] BETA HYDROXY-BUTYRATE 2021-07-27 03:54:00 Lefty Barros [facility] BASIC METABOLIC PANEL (NA, K, CL, CO2, GLUCOSE, BUN, CREATININE, CA) 2021-07-27 03:54:00 Tavon Barros [facility] CBC WITH DIFF 2021-07-27 03:54:00 Tavon Barros [facility] GLYCOSYLATED HEMOGLOBIN (A1C) 2021-07-27 03:54:00 Tavon Barros [facility] POCT GLUCOSE (AUTOMATED) 2021-07-27 03:47:00 Gilda Holman [facility] Encounters Start Date/Time End Date/Time Encounter Type Admission Type Attending [facility] Care Department Encounter ID Source 2024-01-19 10:23:00 Outpatient RadhafaridaLorna velazquez [facility] [id number] [facility] 2023-10-14 12:08:00 Outpatient RadhafaridaLorna velazquez [facility] [id number] [facility] 2023-09-15 08:40:[address] [facility] [id number] [facility] 2023-08-31 14:14:00 Outpatient RadhafaridaLorna velazquez [facility] [id number] [facility] 2023-08-26 10:43:00 Outpatient KamarLorna velazquez [facility] [id number] [facility] 2023-04-27 11:22:00 Outpatient Carmine [facility] STL[facility] [id number] [facility] 2023-04-19 15:34:00 Outpatient Lou, Roger [facility] [id number] [facility] 2022-12-15 10:10:00 Outpatient Lou, Roger [facility] ST[facility] [id number] [facility] 2022-08-19 10:01:00 Outpatient Lou, Roger [facility] STL[facility] [id number] [facility] 2022-05-21 09:00:00 Outpatient Lou, Roger [facility] [id number] [facility] 2021-12-15 14:44:01 Outpatient Lou, Roger [facility] ST[facility] [id number] [facility] 2021-12-11 13:08:00 Outpatient Lou, Roger [facility] STL[facility] [id number] [facility] 2021-08-19 13:52:01 Outpatient Lou, Roger [facility] [id number] [facility] 2021-08-05 10:23:02 Outpatient Lou, Roger [facility] ST[facility] [id number] [facility] 2021-03-05 13:09:32 Outpatient Lou, Roger [facility] ST[facility] [id number] [facility] 2021-03-05 12:26:36 Outpatient Lou, Roger [facility] STL[facility] [id number] [facility] 2021-03-05 11:16:53 Outpatient Lou, Roger [facility] [id number] [facility] 2021-03-05 11:01:51 Outpatient Lou, Roger [facility] [id number] [facility] 2023-10-20 00:00:00 2023-10-20 00:00:00 (TEL) [facility] [id number] [facility] 2023-10-15 00:00:00 2023-10-15 00:00:00 OFFICE VISIT ESTAB PT LEVEL 4 [facility] STL[facility]C [id number] [facility] 2023-09-17 00:00:00 2023-09-17 00:00:00 (ESTPT) Establishe d Patient STLMLC STL[facility]C [id number] [facility] 2023-09-03 00:00:00 2023-09-03 00:00:00 OFFICE VISIT NEW PT LEVEL 4 [facility] STL[facility]C [id number] [facility] 2023-09-03 00:00:00 2023-09-03 00:00:00 (TEL) STLMLC STLMLC [id number] [facility] 2023-08-25 00:00:00 2023-08-25 00:00:00 (TEL) STLMLC STLMLC [id number] [facility] 2023-08-24 00:00:00 2023-08-24 00:00:00 (TEL) STLMLC STLMLC [id number] [facility] 2023-08-20 00:00:00 2023-08-20 16:05:25 Transition of Care Cristal Bonner [id number] [facility] 2023-08-16 20:10:00 2023-08-19 15:05:00 Hospital Encounter Vy Vo David [facility] [id number] [facility] 2023-08-16 00:00:00 2023-08-17 07:56:53 Transition of Care Jake Breannasa Ade MENJIVAR 1.2840.114 350.1.13.10 4.2.7.2.686 [id number] [facility] 2023-08-17 00:00:00 2023-08-17 00:00:00 (TEL) STLMLC STLMLC [id number] [facility] 2023-08-12 08:39:00 2023-08-14 13:05:00 Hospital Encounter Rachel Feldman, Vy Alva [facility] 1..840.114 350.1.13.10 4.2.7.2.686 [id number] [facility] 2023-07-30 00:00:00 2023-07-30 14:41:33 Transition of Care Breanna Joseph 1.840.114 350.1.13.10 4.2.7.2.686 [id number] [facility] 2023-07-27 02:27:00 2023-07-29 13:08:00 Hospital Encounter Ab Vazquez Mohammad A. Morris, David [facility] 1.840.114 350.1.13.10 4.2.7.2.686 [id number] [facility] 2023-04-27 00:00:00 2023-04-27 00:00:00 (WEB) STLMLC STLMLC [id number] [facility] 2023-04-27 00:00:00 2023-04-27 00:00:00 (HOSP F/U) Hospital Follow Up STLMLC STLMLC [id number] [facility] 2023-04-23 00:00:00 2023-04-23 00:00:00 (TEL) STLMLC STLMLC [id number] [facility] 2023-04-23 00:00:00 2023-04-23 00:00:00 Transition of Care Yaritza Fallon 1.840.114 350.1.13.10 4.2.7.2.686 [id number] [facility] 2023-04-19 20:34:00 2023-04-22 16:20:00 Inpatient U VY VO [facility] [id number] [facility] 2023-04-19 20:34:00 2023-04-22 16:20:00 Hospital Encounter Vy Vo [facility] 1.2.840.114 350.1.13.10 4.2.7.2.686 [id number] [facility] 2022-12-17 00:00:00 2022-12-17 00:00:00 OFFICE VISIT ESTAB PT LEVEL 4 [facility] [id number] [facility] 2022 00:00:00 2022 00:00:00 OFFICE VISIT ESTAB PT LEVEL 4 [facility] [id number] [facility] 2022-07-15 00:00:00 2022-07-15 00:00:00 Orders Only Doctor Unassigned, [place] [facility] 1.840.114 350.1.13.10 4.2.7.2.686 [id number] [facility] 2022-07-05 21:56:00 2022-07-08 12:50:00 Outpatient U GAURANG ADAME JOSHUA [facility] [id number] [facility] 2022-07-05 21:56:00 2022-07-08 12:50:00 Hospital Encounter Mary Jo Gutierrez Joshua [facility] 1.2.840.114 350.1.13.10 4.2.7.2.686 [id number] [facility] 2022-05-21 00:00:00 2022-05-21 00:00:00 (WELLNESS) Wellness Visit [facility] STLC [id number] [facility] 2022-05-20 00:00:00 2022-05-20 00:00:00 (TEL) STLMLC STLC [id number] [facility] 2021-12-15 00:00:00 2021-12-15 00:00:00 OFFICE VISIT ESTAB PT LEVEL 4 [facility]LMLC STLC [id number] [facility] 2021-09-19 00:00:00 2021-09-19 00:00:00 (TEL) STLMLC STLC [id number] [facility] 2021-09-16 00:00:00 2021-09-16 00:00:00 OFFICE VISIT ESTAB PT LEVEL 4 STLMLC STLC [id number] [facility] 2021-08-20 00:00:00 2021-08-20 00:00:00 OFFICE VISIT ESTAB PT LEVEL 4 STLC STLC [id number] [facility] 2021-08-05 00:00:00 2021-08-05 00:00:00 Orders Only Doctor Unassigned, [place] [facility] 1..840.114 350.1.13.10 4.2.7.2.686 [id number] [facility] 2021-07-30 00:00:00 2021-07-30 00:00:00 (HOSP F/U) Hospital Follow Up [facility] STLC [id number] [facility] 2021-07-30 00:00:00 2021-07-30 00:00:00 (TEL) STLC STLC [id number] [facility] 2021-07-30 00:00:00 2021-07-30 00:00:00 Transition of Care Breanna Mendez 1..840.114 350.1.13.10 4.2.7.2.686 [id number] [facility] 2021-07-26 22:38:00 2021-07-29 17:35:00 Inpatient U KINJAL FLOWER [facility] [id number] [facility] 2021-07-26 22:38:00 2021-07-29 17:35:00 Hospital Encounter Smooth Holman Dongming [facility] 1.2.840.114 350.1.13.10 4.2.7.2.686 [id number] [facility] 2020-07-09 00:00:00 2020-07-09 00:00:00 Outpatient STLMLC STLMLC [id number] [facility] 2020-04-08 00:00:00 2020-04-08 00:00:00 Outpatient STLMLC STLMLC [id number] [facility] 2020-01-30 00:00:00 2020-01-30 00:00:00 Outpatient STLMLC STLMLC [id number] [facility] 2019-12-28 00:00:00 2019-12-28 00:00:00 Outpatient STLMLC STLMLC [id number] [facility] 2019-09-26 10:15:00 2019-09-26 10:15:00 Outpatient [facility] [id number] [facility] 2019-06-27 10:00:00 2019-06-27 10:00:00 Outpatient [facility] [id number] [facility] 2019-03-15 10:00:00 2019-03-15 10:00:00 Outpatient [facility] [id number] [facility] 2019-02-27 15:00:00 2019-02-27 15:00:00 Outpatient [facility] [id number] [facility] Results Test Description Test Time Test Comments Results Result Co mments Source INSULIN, FREE AND [id number] 00:00:00* Test Item Value Reference Range Interpretation Comme nts FREE INSULIN (test code = 90269-8) 4 uIU/mL See_Comment [Automated [employer]] The system which generated this result transmitted reference range: 3-25 uIU/mL. The reference range was not used to interpret this result as normal/abnormal. TOTAL INSULIN (test code = 3695-4) 6 uIU/mL See_Comment [Automated messa [employer]] The system which generated this result transmitted reference range: 3-25 uIU/mL. The reference range was not used to interpret this result as normal/abnormal. POCT GLUCOSE (AUTOMATED)2023-08-19 16:33:39* Test Item Value Reference Range Interpretation Comme [facility] POCT GLU (test code = 0734514508) 163 mg/dL 70-110 H Lab Interpretation (test cod e = 58371-2) Abnormal [facility] GLUCOSE (AUTOMATED)2023-08-19 12:34:44* Test Item Value Reference Range Interpretation Comme [facility] POCT GLU (test code = 0338118276) 208 mg/dL 70-110 H Lab Interpretation (test cod e = 52273-5) Abnormal [facility] GLUCOSE (AUTOMATED)2023-08-19 02:01:12* Test Item Value Reference Range Interpretation Comme [facility] POCT GLU (test code = 1911246152) 177 mg/dL 70-110 H Lab Interpretation (test cod e = 39735-8) Abnormal [facility] GLUCOSE (AUTOMATED)2023-08-18 21:11:14* Test Item Value Reference Range Interpretation Comme [facility] POCT GLU (test code = 0443131543) 147 mg/dL 70-110 H Lab Interpretation (test cod e = 80070-5) Abnormal [facility] Metabolic Panel (NA, K, CL, CO2, GLUCOSE, BUN, CREATININE, CA)2023-08-18 18:54:07* Test Item Value Reference Range Interpretation Comme nts NA (test code = 4397034154) 139 mmol/L 135-145 K (test code = 2775682566) 3.4 mmol/L 3.5-5.0 L CL (test code = 9038771654) 112 mmol/L 98-108 H CO2 TOTAL (test code = 9791564455) 23 mmol/L 23-31 AGAP (test code = 5060423448) 4 2-16 BUN (test code = 6054554650) 14 mg/dL 7-23 GLUCOSE (test code = 5241075699) 227 mg/dL 70-110 H CREATININE (test code = 2160-0) 0.52 mg/dL 0.60-1.25 L CALCIUM (test code = 3631399040) 8.5 mg/dL 8.6-10.6 L eGFR (test code = 94187-5) 128.3 mL/min/1.73m2 CKD-EPI eGFR (2020). Assuming creatinine has been stable day-to-day for at least three months, the eGFR indicates Category G1 (>= 90 mL/min/1.73 m2) Lab Interpretation (test code = 52230-9) Abnormal [facility] GLUCOSE (AUTOMATED)2023-08-18 16:38:13* Test Item Value Reference Range Interpretation Comme nts POCT GLU (test code = 8472167327) 198 mg/dL 70-110 H Lab Interpretation (test cod e = 31311-9) Abnormal [facility] GLUCOSE (AUTOMATED)2023-08-18 14:27:00* Test Item Value Reference Range Interpretation Comme nts POCT GLU (test code = 8682306293) 186 mg/dL 70-110 H Lab Interpretation (test cod e = 08136-0) Abnormal [facility] GLUCOSE (AUTOMATED)2023-08-18 13:36:16* Test Item Value Reference Range Interpretation Comme nts POCT GLU (test code = 3703298891) 149 mg/dL 70-110 H Lab Interpretation (test cod e = 42640-0) Abnormal [facility] GLUCOSE (AUTOMATED)2023-08-18 12:22:13* Test Item Value Reference Range Interpretation Comme nts POCT GLU (test code = 6922783353) 152 mg/dL 70-110 H Lab Interpretation (test cod e = 48306-0) Abnormal [facility] GLUCOSE (AUTOMATED)2023-08-18 11:06:49* Test Item Value Reference Range Interpretation Comme nts POCT GLU (test code = 7119802431) 118 mg/dL 70-110 H Lab Interpretation (test cod e = 91768-1) Abnormal [facility] GLUCOSE (AUTOMATED)2023-08-18 10:09:31* Test Item Value Reference Range Interpretation Comme nts POCT GLU (test code = 1008863420) 124 mg/dL 70-110 H Lab Interpretation (test cod e = 31074-6) Abnormal [facility] GLUCOSE (AUTOMATED)2023-08-18 09:17:19* Test Item Value Reference Range Interpretation Comme nts POCT GLU (test code = 9914593002) 135 mg/dL 70-110 H Lab Interpretation (test cod e = 20186-7) Abnormal [facility] GLUCOSE (AUTOMATED)2023-08-18 08:05:07* Test Item Value Reference Range Interpretation Comme nts POCT GLU (test code = 8002387023) 115 mg/dL 70-110 H Lab Interpretation (test cod e = 09720-8) Abnormal [facility] GLUCOSE (AUTOMATED)2023-08-18 07:04:30* Test Item Value Reference Range Interpretation Comme nts POCT GLU (test code = 8669429450) 134 mg/dL 70-110 H Lab Interpretation (test cod e = 68947-2) Abnormal [facility] GLUCOSE (AUTOMATED)2023-08-18 06:09:12* Test Item Value Reference Range Interpretation Comme nts POCT GLU (test code = 8891979727) 147 mg/dL 70-110 H Lab Interpretation (test cod e = 65792-1) Abnormal [facility] GLUCOSE (AUTOMATED)2023-08-18 05:02:32* Test Item Value Reference Range Interpretation Comme nts POCT GLU (test code = 5388251464) 160 mg/dL 70-110 H Lab Interpretation (test cod e = 78551-6) Abnormal [facility] GLUCOSE (AUTOMATED)2023-08-18 04:05:47* Test Item Value Reference Range Interpretation Comme nts POCT GLU (test code = 1691541322) 150 mg/dL 70-110 H Lab Interpretation (test cod e = 35618-9) Abnormal [facility] GLUCOSE (AUTOMATED)2023-08-18 04:05:42* Test Item Value Reference Range Interpretation Comme nts POCT GLU (test code = 0630689964) 178 mg/dL 70-110 H Lab Interpretation (test cod e = 27390-2) Abnormal [facility] GLUCOSE (AUTOMATED)2023-08-18 02:09:33* Test Item Value Reference Range Interpretation Comme nts POCT GLU (test code = 7484270200) 157 mg/dL 70-110 H Lab Interpretation (test cod e = 81405-3) Abnormal [facility] GLUCOSE (AUTOMATED)2023-08-18 01:08:26* Test Item Value Reference Range Interpretation Comme nts POCT GLU (test code = 2444012675) 155 mg/dL 70-110 H Lab Interpretation (test cod e = 22461-6) Abnormal [facility] GLUCOSE (AUTOMATED)2023-08-18 00:16:39* Test Item Value Reference Range Interpretation Comme nts POCT GLU (test code = 6351564813) 114 mg/dL 70-110 H Lab Interpretation (test cod e = 47093-8) Abnormal [facility] GLUCOSE (AUTOMATED)2023-08-17 23:14:45* Test Item Value Reference Range Interpretation Comme nts POCT GLU (test code = 1310056482) 99 mg/dL 70-110 Lab Interpretation (test cod e = 55808-5) Normal [facility] GLUCOSE (AUTOMATED)2023-08-17 21:07:11* Test Item Value Reference Range Interpretation Comme nts POCT GLU (test code = 9587782640) 132 mg/dL 70-110 H Lab Interpretation (test cod e = 47467-3) Abnormal [facility] GLUCOSE (AUTOMATED)2023-08-17 20:10:29* Test Item Value Reference Range Interpretation Comme nts POCT GLU (test code = 3072516846) 128 mg/dL 70-110 H Lab Interpretation (test cod e = 80413-5) Abnormal [facility] GLUCOSE (AUTOMATED)2023-08-17 19:33:36* Test Item Value Reference Range Interpretation Comme nts POCT GLU (test code = 3851629170) 163 mg/dL 70-110 H Lab Interpretation (test cod e = 53489-5) Abnormal [facility] GLUCOSE (AUTOMATED)2023-08-17 18:05:58* Test Item Value Reference Range Interpretation Comme nts POCT GLU (test code = 4863018029) 137 mg/dL 70-110 H Lab Interpretation (test cod e = 95659-0) Abnormal [facility] GLUCOSE (AUTOMATED)2023-08-17 17:14:21* Test Item Value Reference Range Interpretation Comme nts POCT GLU (test code = 3961428344) 138 mg/dL 70-110 H Lab Interpretation (test cod e = 80426-0) Abnormal [facility] GLUCOSE (AUTOMATED)2023-08-17 16:06:29* Test Item Value Reference Range Interpretation Comme nts POCT GLU (test code = 2786518722) 157 mg/dL 70-110 H Lab Interpretation (test cod e = 65109-0) Abnormal [facility] GLUCOSE (AUTOMATED)2023-08-17 15:06:08* Test Item Value Reference Range Interpretation Comme nts POCT GLU (test code = 1072630887) 124 mg/dL 70-110 H Lab Interpretation (test cod e = 75257-4) Abnormal [facility] GLUCOSE (AUTOMATED)2023-08-17 14:14:37* Test Item Value Reference Range Interpretation Comme nts POCT GLU (test code = 3962056291) 131 mg/dL 70-110 H Lab Interpretation (test cod e = 14950-0) Abnormal [facility] GLUCOSE (AUTOMATED)2023-08-17 13:06:00* Test Item Value Reference Range Interpretation Comme nts POCT GLU (test code = 9679562806) 140 mg/dL 70-110 H Lab Interpretation (test cod e = 59770-6) Abnormal [facility] GLUCOSE (AUTOMATED)2023-08-17 12:03:41* Test Item Value Reference Range Interpretation Comme nts POCT GLU (test code = 2721136909) 140 mg/dL 70-110 H Lab Interpretation (test cod e = 14240-4) Abnormal [facility] GLUCOSE (AUTOMATED)2023-08-17 11:49:17* Test Item Value Reference Range Interpretation Comme nts POCT GLU (test code = 9127113009) 134 mg/dL 70-110 H Lab Interpretation (test cod e = 63122-9) Abnormal [facility] Metabolic Panel (Na, K, Cl, CO2, Glucose, BUN, Creatinine, Ca)2023-08-17 11:43:18* Test Item Value Reference Range Interpretation Comme nts NA (test code = 2759845366) 158 mmol/L 135-145 H K (test code = 1285345766) 3.3 mmol/L 3.5-5.0 L CL (test code = 0114024623) 126 mmol/L 98-108 H CO2 TOTAL (test code = 1678855864) 19 mmol/L 23-31 L AGAP (test code = 4525699423) 13 2-16 BUN (test code = 8112903511) 18 mg/dL 7-23 GLUCOSE (test code = 8324110981) 154 mg/dL 70-110 H CREATININE (test code = 2160-0) 0.74 mg/dL 0.60-1.25 CALCIUM (test code = 9386015220) 8.8 mg/dL 8.6-10.6 eGFR (test code = 57302-1) 115.3 mL/min/1.73m2 CKD-EPI eGFR (2020). Assuming creatinine has been stable day-to-day for at least three months, the eGFR indicates Category G1 (>= 90 mL/min/1.73 m2) Lab Interpretation (test code = 24386-0) Abnormal [facility] GLUCOSE (AUTOMATED)2023-08-17 11:07:17* Test Item Value Reference Range Interpretation Comme nts POCT GLU (test code = 2761716463) 126 mg/dL 70-110 H Lab Interpretation (test cod e = 41269-3) Abnormal [facility] GLUCOSE (AUTOMATED)2023-08-17 10:01:13* Test Item Value Reference Range Interpretation Comme nts POCT GLU (test code = 9045368375) 139 mg/dL 70-110 H Lab Interpretation (test cod e = 54166-2) Abnormal [facility] GLUCOSE (AUTOMATED)2023-08-17 08:58:35* Test Item Value Reference Range Interpretation Comme nts POCT GLU (test code = 8098849194) 148 mg/dL 70-110 H Lab Interpretation (test cod e = 16458-2) Abnormal [facility] Metabolic Panel (NA, K, CL, CO2, GLUCOSE, BUN, CREATININE, CA)2023-08-17 08:53:32* Test Item Value Reference Range Interpretation Comme nts NA (test code = 8022256302) 159 mmol/L 135-145 H K (test code = 4637598334) 3.6 mmol/L 3.5-5.0 CL (test code = 6828173760) 126 mmol/L 98-108 H CO2 TOTAL (test code = 8016047821) 17 mmol/L 23-31 L AGAP (test code = 5137907260) 16 2-16 BUN (test code = 8582620472) 20 mg/dL 7-23 GLUCOSE (test code = 4035849461) 164 mg/dL 70-110 H CREATININE (test code = 2160-0) 0.88 mg/dL 0.60-1.25 CALCIUM (test code = 6511578737) 9.3 mg/dL 8.6-10.6 eGFR (test code = 56662-6) 109.4 mL/min/1.73m2 CKD-EPI eGFR (2020). Assuming creatinine has been stable day-to-day for at least three months, the eGFR indicates Category G1 (>= 90 mL/min/1.73 m2) Lab Interpretation (test code = 26411-0) [facility]* Test Item Value Reference Range Interpretation Comme nts MAGNESIUM (test code = 4751100508) 2.3 mg/dL 1.7-2.4 Lab Interpretation (test cod e = 15145-6) Normal [facility] with [id number] 08:26:59* Test Item Value Reference Range Interpretation Comme nts WBC (test code = 6690-2) 12.66 4.20-10.70 H RBC (test code = 789-8) 4.20 4.26-5.52 L HGB (test code = 718-7) 13.5 g/dL 12.2-16.4 HCT (test code = 4544-3) 41.9 % 38.4-49.3 MCV (test code = 787-2) 99.8 fL 81.7-95.6 H MCH (test code = 785-6) 32.1 pg 26.1-32.7 MCHC (test code = 786-4) 32.2 g/dL 31.2-35.0 RDW-SD (test code = 68630-6) 57.1 fL 38.5-51.6 H RDW-CV (test code = 788-0) 15.9 % 12.1-15.4 H PLT (test code = 777-3) 208 150-328 MPV (test code = 27671-6) 12.3 fL 9.8-13.0 NRBC/100 WBC (test code = 6662865223) 0.0 0.0-10.0 NRBC x10^3 (test code = 9588697512) See_Comment [Automated message] The system which generated this result transmitted reference range: 10*3/?L. The reference range was not used to interpret this result as normal/abnormal. GRAN MAT (NEUT) % (test code = 770-8) 83.0 % IMM GRAN % (test code = 9250071699) 0.90 % LYMPH % (test code = 736-9) 8.6 % MONO % (test code = 5905-5) 7.3 % EOS % (test code = 713-8) 0.0 % BASO % (test code = 706-2) 0.2 % GRAN MAT x10^3(ANC) (test code = 2830441481) 10.49 10*3/uL 1.99-6.95 H IMM GRAN x10^3 (test code = 2505035557) 0.12 10*3/uL 0.00-0.06 H LYMPH x10^3 (test code = 731-0) 1.09 10*3/uL 1.09-3.23 MONO x10^3 (test code = 742-7) 0.93 10*3/uL 0.36-1.02 EOS x10^3 (test code = 711-2) 0.06-0.53 L BASO x10^3 (test code = 704-7) 0.03 10*3/uL 0.01-0.09 Lab Interpretation (test code = 34403-6) Abnormal [facility] GLUCOSE (AUTOMATED)2023-08-17 08:05:56* Test Item Value Reference Range Interpretation Comme nts POCT GLU (test code = 2699830037) 130 mg/dL 70-110 H Lab Interpretation (test cod e = 82537-4) Abnormal [facility] GLUCOSE (AUTOMATED)2023-08-17 07:00:04* Test Item Value Reference Range Interpretation Comme nts POCT GLU (test code = 4126657163) 139 mg/dL 70-110 H Lab Interpretation (test cod e = 98086-7) Abnormal [facility] GLUCOSE (AUTOMATED)2023-08-17 06:15:05* Test Item Value Reference Range Interpretation Comme nts POCT GLU (test code = 5021651337) 144 mg/dL 70-110 H Lab Interpretation (test cod e = 55148-6) Abnormal [facility] Metabolic Panel (Na, K, Cl, CO2, Glucose, BUN, Creatinine, Ca)2023-08-17 05:41:58* Test Item Value Reference Range Interpretation Comme nts NA (test code = 5109639975) 159 mmol/L 135-145 H K (test code = 3834291693) 3.8 mmol/L 3.5-5.0 CL (test code = 7600584667) 126 mmol/L 98-108 H CO2 TOTAL (test code = 3431984105) 9 mmol/L 23-31 L AGAP (test code = 7573308745) 24 2-16 H BUN (test code = 2792196683) 21 mg/dL 7-23 GLUCOSE (test code = 0937254946) 189 mg/dL 70-110 H CREATININE (test code = 2160-0) 1.01 mg/dL 0.60-1.25 CALCIUM (test code = 7835674462) 9.4 mg/dL 8.6-10.6 eGFR (test code = 74595-8) 94.6 mL/min/1.73m2 CKD-EPI eGFR (2020). Assuming creatinine has been stable day-to-day for at least three months, the eGFR indicates Category G1 (>= 90 mL/min/1.73 m2) Lab Interpretation (test code = 30701-7) Abnormal [facility] GLUCOSE (AUTOMATED)2023-08-17 05:15:44* Test Item Value Reference Range Interpretation Comme nts POCT GLU (test code = 8055214295) 158 mg/dL 70-110 H Lab Interpretation (test cod e = 02850-7) Abnormal [facility] GLUCOSE (AUTOMATED)2023-08-17 04:04:20* Test Item Value Reference Range Interpretation Comme nts POCT GLU (test code = 6571665185) 191 mg/dL 70-110 H Lab Interpretation (test cod e = 24250-6) Abnormal [facility] Arterial Blood Gas. Notify Utilization Reviewer of ABG results. Venous blood gas (VBG) may be obtained if patient not tachypneic or with mental status changes. Consider repeat if pH< 7.2.2023-08-17 02:56:01* Test Item Value Reference Range Interpretation Comme nts PH (test code = 2) 7.26 7.35-7.45 L PCO2 (test code = 5650113662) 35-45 L PO2 (test code = 9862730107) 118 80-100 H HCO3 (test code = 9791394659) 6 22-26 L BE (test code = 1115318825) -18.6 -3.0-3.0 L Lab Interpretation (test cod e = 80722-2) Abnormal [facility] GLUCOSE (AUTOMATED)2023-08-17 02:53:18* Test Item Value Reference Range Interpretation Comme nts POCT GLU (test code = 4465800469) 243 mg/dL 70-110 H Lab Interpretation (test cod e = 39113-9) Abnormal [facility] GLUCOSE (AUTOMATED)2023-08-17 01:37:17* Test Item Value Reference Range Interpretation Comme nts POCT GLU (test code = 9949139281) 242 mg/dL 70-110 H Lab Interpretation (test cod e = 02608-7) Abnormal [facility] GLUCOSE (AUTOMATED)2023-08-14 12:37:28* Test Item Value Reference Range Interpretation Comme nts POCT GLU (test code = 3753895010) 169 mg/dL 70-110 H Lab Interpretation (test cod e = 66986-7) Abnormal [facility] GLUCOSE (AUTOMATED)2023-08-14 02:22:03* Test Item Value Reference Range Interpretation Comme nts POCT GLU (test code = 8091508886) 121 mg/dL 70-110 H Lab Interpretation (test cod e = 77298-5) Abnormal [facility] GLUCOSE (AUTOMATED)2023-08-13 21:39:09* Test Item Value Reference Range Interpretation Comme nts POCT GLU (test code = 0842214876) 174 mg/dL 70-110 H Lab Interpretation (test cod e = 03367-4) Abnormal [facility] GLUCOSE (AUTOMATED)2023-08-13 18:55:39* Test Item Value Reference Range Interpretation Comme nts POCT GLU (test code = 6446981825) 191 mg/dL 70-110 H Lab Interpretation (test cod e = 66266-2) Abnormal [facility] GLUCOSE (AUTOMATED)2023-08-13 17:45:27* Test Item Value Reference Range Interpretation Comme nts POCT GLU (test code = 8705362808) 194 mg/dL 70-110 H Lab Interpretation (test cod e = 87892-0) Abnormal [facility] GLUCOSE (AUTOMATED)2023-08-13 16:49:42* Test Item Value Reference Range Interpretation Comme nts POCT GLU (test code = 2807923630) 199 mg/dL 70-110 H Lab Interpretation (test cod e = 90811-6) Abnormal [facility] GLUCOSE (AUTOMATED)2023-08-13 15:47:45* Test Item Value Reference Range Interpretation Comme nts POCT GLU (test code = 1864930570) 197 mg/dL 70-110 H Lab Interpretation (test cod e = 19614-3) Abnormal [facility] GLUCOSE (AUTOMATED)2023-08-13 14:47:19* Test Item Value Reference Range Interpretation Comme nts POCT GLU (test code = 4569393819) 243 mg/dL 70-110 H Lab Interpretation (test cod e = 94329-8) Abnormal [facility] GLUCOSE (AUTOMATED)2023-08-13 13:45:28* Test Item Value Reference Range Interpretation Comme nts POCT GLU (test code = 1854675255) 250 mg/dL 70-110 H Lab Interpretation (test cod e = 84936-6) [id number] 13:31:42EXAM: XR CHEST 1 VW COMPARISON: None HISTORY:42 years old, Male ?with SOB Portable.[facility] GLUCOSE (AUTOMATED)2023-08-13 12:46:27* Test Item Value Reference Range Interpretation Comme nts POCT GLU (test code = 1813037967) 185 mg/dL 70-110 H Lab Interpretation (test cod e = 63777-9) Abnormal [facility] GLUCOSE (AUTOMATED)2023-08-13 11:54:44* Test Item Value Reference Range Interpretation Comme nts POCT GLU (test code = [id number]) 70-110 HH Notified Provide r Lab Interpretation (test code = 51778-4) Abnormal [facility] GLUCOSE (AUTOMATED)2023-08-13 11:41:07* Test Item Value Reference Range Interpretation Comme nts POCT GLU (test code = 0524093965) 153 mg/dL 70-110 H Lab Interpretation (test cod e = 93733-2) Abnormal [facility] GLUCOSE (AUTOMATED)2023-08-13 10:46:23* Test Item Value Reference Range Interpretation Comme nts POCT GLU (test code = 2914486816) 172 mg/dL 70-110 H Lab Interpretation (test cod e = 65193-5) Abnormal [facility] GLUCOSE (AUTOMATED)2023-08-13 09:46:38* Test Item Value Reference Range Interpretation Comme nts POCT GLU (test code = 7224509806) 156 mg/dL 70-110 H Lab Interpretation (test cod e = 31791-2) Abnormal [facility] GLUCOSE (AUTOMATED)2023-08-13 08:53:44* Test Item Value Reference Range Interpretation Comme nts POCT GLU (test code = 1545719990) 151 mg/dL 70-110 H Lab Interpretation (test cod e = 82784-2) Abnormal [facility] GLUCOSE (AUTOMATED)2023-08-13 07:42:27* Test Item Value Reference Range Interpretation Comme nts POCT GLU (test code = 6863713039) 136 mg/dL 70-110 H Lab Interpretation (test cod e = 48400-3) Abnormal [facility] GLUCOSE (AUTOMATED)2023-08-13 06:48:40* Test Item Value Reference Range Interpretation Comme nts POCT GLU (test code = 0315682944) 136 mg/dL 70-110 H Lab Interpretation (test cod e = 48364-9) Abnormal [facility] GLUCOSE (AUTOMATED)2023-08-13 05:47:10* Test Item Value Reference Range Interpretation Comme nts POCT GLU (test code = 1189094072) 114 mg/dL 70-110 H Lab Interpretation (test cod e = 19684-0) Abnormal [facility] GLUCOSE (AUTOMATED)2023-08-13 04:45:55* Test Item Value Reference Range Interpretation Comme nts POCT GLU (test code = 4840293280) 240 mg/dL 70-110 H Lab Interpretation (test cod e = 08063-3) Abnormal [facility] GLUCOSE (AUTOMATED)2023-08-13 03:48:49* Test Item Value Reference Range Interpretation Comme nts POCT GLU (test code = 8312489577) 152 mg/dL 70-110 H Lab Interpretation (test cod e = 24717-7) Abnormal [facility] GLUCOSE (AUTOMATED)2023-08-13 02:45:17* Test Item Value Reference Range Interpretation Comme nts POCT GLU (test code = 5863113741) 229 mg/dL 70-110 H Lab Interpretation (test cod e = 38345-6) Abnormal [facility] GLUCOSE (AUTOMATED)2023-08-13 01:53:20* Test Item Value Reference Range Interpretation Comme nts POCT GLU (test code = 2746862088) 131 mg/dL 70-110 H Lab Interpretation (test cod e = 03119-3) Abnormal [facility] GLUCOSE (AUTOMATED)2023-08-13 00:52:54* Test Item Value Reference Range Interpretation Comme nts POCT GLU (test code = 8830564848) 152 mg/dL 70-110 H Lab Interpretation (test cod e = 47190-6) Abnormal [facility] GLUCOSE (AUTOMATED)2023-08-12 23:45:38* Test Item Value Reference Range Interpretation Comme nts POCT GLU (test code = 0693197192) 158 mg/dL 70-110 H Lab Interpretation (test cod e = 67556-0) Abnormal [facility] GLUCOSE (AUTOMATED)2023-08-12 22:59:59* Test Item Value Reference Range Interpretation Comme nts POCT GLU (test code = 0543674988) 156 mg/dL 70-110 H Lab Interpretation (test cod e = 84478-8) Abnormal [facility] GLUCOSE (AUTOMATED)2023-08-12 21:48:09* Test Item Value Reference Range Interpretation Comme nts POCT GLU (test code = 6281991109) 203 mg/dL 70-110 H Lab Interpretation (test cod e = 46610-1) [facility] CenterBetahydroxy-Gcsdcikk7291-59-80 21:18:15 BOH>9.0mmol/L08/12/2023 4:18 PM [facility] LABORATORY SERVICESNormal Ranges: ? ? Nonfasting ? Less than 0.1 mmol/L ? ? Overnight Fast ? ? ? Less than 0.4 mmol/L ? ? Fasting (1-2 weeks) ?6-8 mmol/L Test developed and characteristics determined by [facility] Laboratory Services.[facility] Osmolality Bamql0745-19-89 20:46:29* Test Item Value Reference Range Interpretation Comme nts OSMOLALITY (test code = 2692-2) 390 278-305 HH Lab Interpretation (test cod e = 18529-0) [facility]normal [facility] CenterLow-Density Lipoprotein, Vnvuau6525-86-53 20:41:38* Test Item Value Reference Range Interpretation Comme nts dLDL Chol (test code = 11209-7) 85 mg/dL <=130 Lab Interpretation (test cod e = 38281-1) Normal [facility] GLUCOSE (AUTOMATED)2023-08-12 20:41:17* Test Item Value Reference Range Interpretation Comme nts POCT GLU (test code = 9052107056) 266 mg/dL 70-110 H Lab Interpretation (test cod e = 56133-1) Abnormal [facility] GLUCOSE (AUTOMATED)2023-08-12 19:45:09* Test Item Value Reference Range Interpretation Comme nts POCT GLU (test code = 6867005460) 279 mg/dL 70-110 H Lab Interpretation (test cod e = 36307-8) Abnormal [facility] GLUCOSE (AUTOMATED)2023-08-12 18:36:45* Test Item Value Reference Range Interpretation Comme nts POCT GLU (test code = 2600651117) 368 mg/dL 70-110 H Lab Interpretation (test cod e = 51719-2) Abnormal [facility] GLUCOSE (AUTOMATED)2023-08-12 17:32:25* Test Item Value Reference Range Interpretation Comme nts POCT GLU (test code = 3153555621) 507 mg/dL 70-110 HH Lab Interpretation (test cod e = 71113-8) Abnormal [facility] Metabolic Panel (Na, K, Cl, CO2, Glucose, BUN, Creatinine, Ca)2023-08-12 16:54:01* Test Item Value Reference Range Interpretation Comme nts NA (test code = 8759549360) 149 mmol/L 135-145 H K (test code = 2942974291) 4.8 mmol/L 3.5-5.0 CL (test code = 0678130710) 110 mmol/L 98-108 H CO2 TOTAL (test code = 9258494214) 23-31 L AGAP (test code = 1435896297) Unable to calcul ate because, either,SODIUM SERUM, CHLORIDE SERUM, CO2 TOTAL or all are less than the sensitivity of the analyzer. BUN (test code = 2721834179) 36 mg/dL 7-23 H GLUCOSE (test code = 4836197790) 629 mg/dL 70-110 HH CREATININE (test code = 2160-0) 2.04 mg/dL 0.60-1.25 H CALCIUM (test code = 5806825925) 7.6 mg/dL 8.6-10.6 L eGFR (test code = 87386-2) 40.7 mL/min/1.73m2 CKD-EPI eGFR (20 21). Assuming creatinine has been stable day-to-day for at least three months, the eGFR indicates Category G3b (30 - 44 mL/min/1.73 m2) Lab Interpretation (test code = 32805-4) [facility]2023-08-12 16:36:41* Test Item Value Reference Range Interpretation Comme nts POCT GLU (test code = 1910978194) 548 mg/dL 70-110 HH Lab Interpretation (test cod e = 65235-6) [facility]normal [facility] CenterAmmonia, [id number] 16:02:26* Test Item Value Reference Range Interpretation Comme nts AMMONIA (test code = 3301067998) 9-33 L Lab Interpretation (test cod e = 09030-5) [facility]normal [facility] CenterAC PANEL 21 + LACTIC [id number] 15:46:47* Test Item Value Reference Range Interpretation Comme nts PH (test code = 7954484858) 7.00 7.32-7.42 LL PCO2 MICHELINE (test code = 6943104924) 19 41-51 L PO2 MICHELINE (test code = 4317823230) 43 25-40 H HCO3 MICHELINE (test code = 9036626440) 5 24-28 L AC VBE(BEAKER) (test code = 2028239566) -25.0 mEq/L THB MICHELINE (test code = 7408462994) 14.9 g/dL 13.5-18.0 %O2HB MICHELINE (test code = 8854122231) 68.3 % 52.0-63.0 H %COHB MICHELINE (test code = 8869919745) 0.3 % 0.0-1.5 %METHB MICHELINE (test code = 6303661722) 0.1 % 0.4-1.5 L VOL%O2 MICHELINE (test code = 2266465546) 14.3 % 6.0-12.0 H NA (test code = 8115942241) 148 mmol/L 135-145 H K+ (test code = 4333237765) 5.1 mmol/L 3.5-5.0 H AC CA IONZ (test code = 0244758929) 4.90 mg/dL 4.50-5.30 GLUCOSE (test code = 1289570100) 677 mg/dL 70-110 HH LACTIC ACID (test code = 1902555809) 4.03 mmol/L 0.50-2.20 H Lab Interpretation (test cod e = 65041-8) [facility]normal [facility] CenterLipid Panel (38675)(Total Cholesterol, Triglycerides, HDL)2023-08-12 15:39:38* Test Item Value Reference Range Interpretation Comme nts CHOL (test code = 4081247457) 214 mg/dL 120-200 H HDL (test code = 1239468836) 28 mg/dL >=40 L HDLC RATIO (test code = 9360936745) 7.6 <=5.0 H TRIG (test code = 9731365164) 629 mg/dL 30-170 H LDL CHOL (test code = 53093-3) Unable to calcul ate LDL due to elevated triglyceride level greater than 400 mg/dL. VLDL (test code = 0702033921) 126 mg/dL 5-60 H Lab Interpretation (test code = 88301-9) [facility]normal [facility] CenterPhosphorus2024-07-04 15:05:46* Test Item Value Reference Range Interpretation Comme nts PHOSPHORUS (test code = 8302382038) 14.6 mg/dL 2.5-5.0 H Lab Interpretation (test cod e = 50673-3) [facility]normal [facility] CenterCBC WITH [id number] 15:04:16* Test Item Value Reference Range Interpretation Comme nts WBC (test code = 6690-2) 26.19 4.20-10.70 H RBC (test code = 789-8) 4.26 4.26-5.52 HGB (test code = 718-7) 13.6 g/dL 12.2-16.4 HCT (test code = 4544-3) 45.2 % 38.4-49.3 MCV (test code = 787-2) 106.1 fL 81.7-95.6 H MCH (test code = 785-6) 31.9 pg 26.1-32.7 MCHC (test code = 786-4) 30.1 g/dL 31.2-35.0 L RDW-SD (test code = 04085-9) 55.6 fL 38.5-51.6 H RDW-CV (test code = 788-0) 14.7 % 12.1-15.4 PLT (test code = 777-3) 283 150-328 MPV (test code = 02500-4) 13.7 fL 9.8-13.0 H IPF % (test code = 2525286043) 8.5 % 1.2-10.7 Platelet count measured by fluorescence method. NRBC/100 WBC (test code = 1733321009) 0.0 0.0-10.0 NRBC x10^3 (test code = 6582072436) See_Comment [[employer]] The system which generated this result transmitted reference range: 10*3/?L. The reference range was not used to interpret this result as normal/abnormal. SEG % (test code = 18884-2) 70 % 33-76 BAND % (test code = 30612-6) 14 % 0-1 H META % (test code = 18314-6) 4 % <=0 H MYELO % (test code = 46114-5) 1 % <=0 H LYMPH % (test code = 21569-5) 7 % 14-54 L MONO % (test code = 38148-1) 4 % 0-4 ANC (test code = 753-4) 22.00 10*3/uL 1.99-6.95 H Lab Interpretation (test code = 72911-3) [facility]normal [facility] CenterLIPASE2024-07-04 15:04:16* Test Item Value Reference Range Interpretation Comme nts LIPASE (test code = 4540105951) 1311 U/L 0-220 H Lab Interpretation (test cod e = 37004-0) Abnormal [facility] CenterGlycosylated Hemoglobin (A1C)2023-08-12 14:53:59* Test Item Value Reference Range Interpretation Comme nts HGB A1C (test code = 4548-4) 12.3 % 4.0-5.7 H SONYA (test code = SONYA) Reference RangesNormal: <5.7%Prediabetes: 5.7 - 6.4%Diabetes: > 6.5% Lab Interpretation (test code = 65122-8) [facility]normal [facility] CenterCOMP. METABOLIC PANEL (17706)2023-08-12 14:53:54* Test Item Value Reference Range Interpretation Comme nts NA (test code = 8128500141) 142 mmol/L 135-145 K (test code = 0368054308) 5.6 mmol/L 3.5-5.0 H CL (test code = 1628957630) 101 mmol/L 98-108 CO2 TOTAL (test code = 0132200913) 23-31 L AGAP (test code = 9160653530) Unable to calcul ate because, either,SODIUM SERUM, CHLORIDE SERUM, CO2 TOTAL or all are less than the sensitivity of the analyzer. BUN (test code = 1569207133) 36 mg/dL 7-23 H GLUCOSE (test code = 5709232127) 898 mg/dL 70-110 HH CREATININE (test code = 2160-0) 2.64 mg/dL 0.60-1.25 H TOTAL BILI (test code = 9022632342) 0.6 mg/dL 0.1-1.1 CALCIUM (test code = 1965018037) 8.3 mg/dL 8.6-10.6 L T PROTEIN (test code = 1515087507) 7.4 g/dL 6.3-8.2 ALBUMIN (test code = 5967042004) 4.4 g/dL 3.5-5.0 ALK PHOS (test code = 3751924888) 81 U/L 34-122 ALTv (test code = 1742-6) 14 U/L 5-50 AST(SGOT) (test code = 7523562858) 16 U/L 13-40 eGFR (test code = 29905-9) 29.9 mL/min/1.73m2 Lab Interpretation (test code = 78149-5) Abnormal [facility] CenterTROPONIN [id number] 14:46:14* Test Item Value Reference Range Interpretation Comme nts TROPONIN I (test code = 0951859140) 0.005 ng/mL <=0.034 SONYA (test code = SONYA) Reference (Normal) Range (defined by the 99th percentile reference limit): <= 0.034 ng/mL Note: Cardiac troponin begins to rise 3-4 hours after the onset of ischemia. Repeat in 4-6 hours if the sample was drawn within 3-4 hours of the onset of the symptom and found normal. Diagnosis of myocardial injury is made with acute changes in cTn concentrations with at least one serial sample above the 99th percentile upper reference limit (URL), taken together with the patient's clinical presentation. Biotin has been reported to cause a negative bias, interpret results relative to patient's use of biotin. Lab Interpretation (test code = 23515-5) Normal [facility] CenterMagnesium2024-07-04 14:35:11* Test Item Value Reference Range Interpretation Comme nts MAGNESIUM (test code = 4728899834) 2.7 mg/dL 1.7-2.4 H Lab Interpretation (test cod e = 76038-0) [facility]normal [facility] CenterPOCT [facility]SE (AUT[facility]ATED)2023-08-12 14:30:55* Test Item Value Reference Range Interpretation Comme nts POCT GLU (test code = 4557991392) 70-110 HH Lab Interpretation (test cod e = 09839-5) [facility]normal [facility] CenterPOCT [facility] ([facility])2023-08-12 14:30:50* Test Item Value Reference Range Interpretation Comme nts POCT GLU (test code = 7267864556) 70-110 HH Notified Provide r Lab Interpretation (test code = 82616-5) [facility]normal [facility] CenterAC PANEL 21 + LACTIC [id number] 13:52:08* Test Item Value Reference Range Interpretation Comme nts PH (test code = 8239358405) 6.88 7.32-7.42 LL PCO2 MICHELINE (test code = 9002956162) 20 41-51 L PO2 MICHELINE (test code = 1347127244) 75 25-40 HH HCO3 MICHELINE (test code = 1306436091) 4 24-28 L AC VBE(BEAKER) (test code = 8579145196) -28.5 mEq/L THB MICHELINE (test code = 7162595644) 14.6 g/dL 13.5-18.0 %O2HB MICHELINE (test code = 8736787609) 86.6 % 52.0-63.0 H %COHB MICHELINE (test code = 2862403618) 0.3 % 0.0-1.5 %METHB MICHELINE (test code = 8663398848) 0.2 % 0.4-1.5 L VOL%O2 MICHELINE (test code = 6010593670) 17.8 % 6.0-12.0 H NA (test code = 2037089173) 144 mmol/L 135-145 K+ (test code = 6977214251) 5.6 mmol/L 3.5-5.0 H AC CA IONZ (test code = 0107140226) 5.10 mg/dL 4.50-5.30 GLUCOSE (test code = 5880287090) Glucose too high to result. LACTIC ACID (test code = 0683399366) 6.28 mmol/L 0.50-2.20 H Lab Interpretation (test code = 43088-6) Abnormal [facility] CenterCritical [id number] 13:36:00Rachel Feldman, DO ? ? 08/12/2023 11:10 AMCritical Care Performed by: Rachel Feldman, DOAuthorized by: Rachel Feldman, DO ?Critical care provider statement: ?Critical care time (minutes): ?50 ?Critical care was necessary to treat or prevent imminent or life-threatening deterioration of the following conditions: ?Renal failure and endocrine crisis ?Critical care was time spent personallyby me on the following activities: ?Development of treatment plan with patient or surrogate, discussions with consultants, evaluation of patient's response to treatment, examination of patient, obtaining history from patient or surrogate, ordering and performing treatments and interventions, ordering and review of laboratory studies, re-evaluation of patient's condition and review of old charts ?I assumed direction of critical care for this patient from another provider in my specialty: no ? ?Care discussed with: admitting provider ? [facility] GLUCOSE (AUTOMATED)2023-07-29 16:35:43* Test Item Value Reference Range Interpretation Comme nts POCT GLU (test code = 1357022326) 225 mg/dL 70-110 H Lab Interpretation (test cod e = 17933-2) Abnormal [facility] GLUCOSE (AUTOMATED)2023-07-29 12:31:19* Test Item Value Reference Range Interpretation Comme nts POCT GLU (test code = 5833456488) 137 mg/dL 70-110 H Lab Interpretation (test cod e = 42677-8) Abnormal [facility] GLUCOSE (AUTOMATED)2023-07-29 02:10:26* Test Item Value Reference Range Interpretation Comme nts POCT GLU (test code = 4010910057) 255 mg/dL 70-110 H Lab Interpretation (test cod e = 64217-2) Abnormal [facility] GLUCOSE (AUTOMATED)2023-07-28 21:30:03* Test Item Value Reference Range Interpretation Comme nts POCT GLU (test code = 5173349806) 247 mg/dL 70-110 H Lab Interpretation (test cod e = 44413-3) Abnormal [facility] GLUCOSE (AUTOMATED)2023-07-28 16:40:03* Test Item Value Reference Range Interpretation Comme nts POCT GLU (test code = 0219330503) 290 mg/dL 70-110 H Lab Interpretation (test cod e = 20886-3) Abnormal [facility] GLUCOSE (AUTOMATED)2023-07-28 13:06:37* Test Item Value Reference Range Interpretation Comme nts POCT GLU (test code = 6666614913) 144 mg/dL 70-110 H Lab Interpretation (test cod e = 55697-6) Abnormal [facility] GLUCOSE (AUTOMATED)2023-07-28 09:10:36* Test Item Value Reference Range Interpretation Comme nts POCT GLU (test code = 4487283673) 176 mg/dL 70-110 H Lab Interpretation (test cod e = 18298-7) Abnormal [facility] GLUCOSE (AUTOMATED)2023-07-28 05:05:46* Test Item Value Reference Range Interpretation Comme nts POCT GLU (test code = 2453496173) 228 mg/dL 70-110 H Lab Interpretation (test cod e = 27714-2) Abnormal [facility] GLUCOSE (AUTOMATED)2023-07-28 03:01:17* Test Item Value Reference Range Interpretation Comme nts POCT GLU (test code = 2672563967) 189 mg/dL 70-110 H Lab Interpretation (test cod e = 53361-3) Abnormal [facility] GLUCOSE (AUTOMATED)2023-07-28 02:01:37* Test Item Value Reference Range Interpretation Comme nts POCT GLU (test code = 4443407469) 139 mg/dL 70-110 H Lab Interpretation (test cod e = 62418-2) Abnormal [facility] GLUCOSE (AUTOMATED)2023-07-28 01:05:31* Test Item Value Reference Range Interpretation Comme nts POCT GLU (test code = 7470919372) 176 mg/dL 70-110 H Lab Interpretation (test cod e = 21878-1) Abnormal [facility] GLUCOSE (AUTOMATED)2023-07-28 00:03:52* Test Item Value Reference Range Interpretation Comme nts POCT GLU (test code = 2457723082) 175 mg/dL 70-110 H Lab Interpretation (test cod e = 25163-7) Abnormal [facility] GLUCOSE (AUTOMATED)2023-07-27 23:02:54* Test Item Value Reference Range Interpretation Comme nts POCT GLU (test code = 5180750299) 168 mg/dL 70-110 H Lab Interpretation (test cod e = 00048-9) Abnormal [facility] Metabolic Panel (NA, K, CL, CO2, GLUCOSE, BUN, CREATININE, CA)2023-07-27 22:11:39* Test Item Value Reference Range Interpretation Comme nts NA (test code = 9718210328) 151 mmol/L 135-145 H K (test code = 3477257936) 3.9 mmol/L 3.5-5.0 CL (test code = 7371009652) 121 mmol/L 98-108 H CO2 TOTAL (test code = 7640966210) 19 mmol/L 23-31 L AGAP (test code = 7911332164) 11 2-16 BUN (test code = 9095339853) 16 mg/dL 7-23 GLUCOSE (test code = 1556668648) 192 mg/dL 70-110 H CREATININE (test code = 2160-0) 0.76 mg/dL 0.60-1.25 CALCIUM (test code = 8497522126) 8.7 mg/dL 8.6-10.6 eGFR (test code = 27447-0) 114.4 mL/min/1.73m2 CKD-EPI eGFR (2020). Assuming creatinine has been stable day-to-day for at least three months, the eGFR indicates Category G1 (>= 90 mL/min/1.73 m2) Lab Interpretation (test code = 06121-1) Abnormal [facility] GLUCOSE (AUTOMATED)2023-07-27 22:01:36* Test Item Value Reference Range Interpretation Comme nts POCT GLU (test code = 7198585919) 173 mg/dL 70-110 H Lab Interpretation (test cod e = 55729-4) Abnormal [facility] GLUCOSE (AUTOMATED)2023-07-27 21:18:51* Test Item Value Reference Range Interpretation Comme nts POCT GLU (test code = 7860032636) 173 mg/dL 70-110 H Lab Interpretation (test cod e = 85464-2) Abnormal [facility] GLUCOSE (AUTOMATED)2023-07-27 20:09:00* Test Item Value Reference Range Interpretation Comme nts POCT GLU (test code = 9102961344) 167 mg/dL 70-110 H Lab Interpretation (test cod e = 98258-3) Abnormal [facility] GLUCOSE (AUTOMATED)2023-07-27 19:08:37* Test Item Value Reference Range Interpretation Comme [facility] POCT GLU (test code = 9090795531) 178 mg/dL 70-110 H Lab Interpretation (test cod e = 01521-5) [facility]normal [facility])2023-07-27 18:05:42* Test Item Value Reference Range Interpretation Comme [facility] POCT GLU (test code = 6758199606) 214 mg/dL 70-110 H Lab Interpretation (test cod e = 70049-8) Abnormal [facility] CenterBasi Metabolic Panel (NA, K, CL, CO2, GLUCOSE, BUN, CREATININE, CA)2023-07-27 17:39:48* Test Item Value Reference Range Interpretation Comme nts NA (test code = 2607311201) 150 mmol/L 135-145 H K (test code = 2904822706) 3.8 mmol/L 3.5-5.0 CL (test code = 6808313773) 122 mmol/L 98-108 H CO2 TOTAL (test code = 0693874922) 13 mmol/L 23-31 L AGAP (test code = 2670868092) 15 2-16 BUN (test code = 1242309910) 16 mg/dL 7-23 GLUCOSE (test code = 8142973930) 185 mg/dL 70-110 H CREATININE (test code = 2160-0) 0.77 mg/dL 0.60-1.25 CALCIUM (test code = 6311467032) 8.6 mg/dL 8.6-10.6 eGFR (test code = 32921-2) 113.9 mL/min/1.73m2 CKD-EPI eGFR (2020). Assuming creatinine has been stable day-to-day for at least three months, the eGFR indicates Category G1 (>= 90 mL/min/1.73 m2) Lab Interpretation (test code = 98014-1) Abnormal [facility] GLUCOSE (AUTOMATED)2023-07-27 17:06:41* Test Item Value Reference Range Interpretation Comme [facility] POCT GLU (test code = 1089054377) 188 mg/dL 70-110 H Lab Interpretation (test cod e = 97593-1) Abnormal [facility] CenterBetahydroxy-Nahiozrt0024-20-09 16:26:40 BOH>9.0mmol/L07/27/2023 11:26 AM [facility] LABORATORY SERVICESNormal Ranges: ? ? Nonfasting ? Less than 0.1 mmol/L ? ? Overnight Fast ? ? ? Less than 0.4 mmol/L ? ? Fasting (1-2 weeks) ?6-8 mmol/L Test developed and characteristics determined by [facility] Laboratory Services.[facility] GLUCOSE (AUTOMATED)2023-07-27 16:05:39* Test Item Value Reference Range Interpretation Comme nts POCT GLU (test code = 7635893866) 138 mg/dL 70-110 H Lab Interpretation (test cod e = 47357-0) Abnormal [facility] CenterOsmolality, Serum or Wficfp3285-79-50 15:58:20 * Test Item Value Reference Range Interpretation Comme nts OSMOLALITY (test code = 2692-2) 375 278-305 HH Lab Interpretation (test cod e = 52582-8) Abnormal [facility] GLUCOSE (AUTOMATED)2023-07-27 15:01:04* Test Item Value Reference Range Interpretation Comme nts POCT GLU (test code = 2841466646) 142 mg/dL 70-110 H Lab Interpretation (test cod e = 36220-0) Abnormal [facility] GLUCOSE (AUTOMATED)2023-07-27 14:02:05* Test Item Value Reference Range Interpretation Comme nts POCT GLU (test code = 4278193220) 124 mg/dL 70-110 H Lab Interpretation (test cod e = 99262-9) Abnormal [facility] GLUCOSE (AUTOMATED)2023-07-27 13:03:22* Test Item Value Reference Range Interpretation Comme nts POCT GLU (test code = 1855211501) 147 mg/dL 70-110 H Lab Interpretation (test cod e = 74420-5) Abnormal [facility] ABDOMEN PELVIS W HYZRJLTS3983-04-70 12:46:10EXAM: CT ABDOMEN/PELVIS WITH CONTRAST HISTORY: ?Abdominal pain, acute, nonlocalized Evaluate for acute pancreatitis ?. Lipase 168. COMPARISON: None TECHNIQUE AND FINDINGS: Contiguous axial imaging from the level of the lungbases through the proximal thighs was performed after the administration ofintravenous contrast. Coronal and sagittal reconstructions were obtained. ? FINDINGS: LOWER THORAX: The lungs bases are clear. No cardiomegaly. LIVER: No focal hepatic lesions. ?Normal size and contour. GALLBLADDER AND BILIARY TREE: No biliary ductal dilation. ?No gallbladderwall thickening. SPLEEN: No splenomegaly. PANCREAS: Normal parenchymal enhancement. No peripancreatic edema. Noductal dilation or masses. ADRENAL GLANDS: No adrenal nodules. KIDNEYS: Bilateral symmetrical enhancement. No hydronephrosis, stones, ormasses. GI TRACT: No dilation or wall thickening. The appendix is normal. PELVIS/BLADDER: There is circumferential bladder wall thickening. PERITONEUM AND RETROPERITONEUM: No free air or fluid. LYMPH NODES: No lymphadenopathy. VESSELS: Subtle focal haziness and wall thickening at the ?distal abdominalaortic wall of no known chronicity. BONES AND SOFT TISSUES: No suspicious lytic or sclerotic bony lesions.[facility] GLUCOSE (AUTOMATED)2023-07-27 12:18:23* Test Item Value Reference Range Interpretation Comme nts POCT GLU (test code = 4850611268) 159 mg/dL 70-110 H Lab Interpretation (test cod e = 19723-2) Abnormal [facility] GLUCOSE (AUTOMATED)2023-07-27 11:06:00* Test Item Value Reference Range Interpretation Comme nts POCT GLU (test code = 5014695371) 167 mg/dL 70-110 H Lab Interpretation (test cod e = 53655-0) Abnormal [facility] GLUCOSE (AUTOMATED)2023-07-27 10:07:33* Test Item Value Reference Range Interpretation Comme nts POCT GLU (test code = 2215854729) 232 mg/dL 70-110 H Lab Interpretation (test cod e = 52491-9) [facility]Total Cholesterol, Triglycerides, HDL)2023-07-27 10:02:20* Test Item Value Reference Range Interpretation Comme nts CHOL (test code = 4293190453) 212 mg/dL 120-200 H HDL (test code = 6461945105) 26 mg/dL >=40 L HDLC RATIO (test code = 5952183727) 8.2 <=5.0 H TRIG (test code = 4566264498) 254 mg/dL 30-170 H LDL CHOL (test code = 18512-6) 135 mg/dL <=160 VLDL (test code = 3116258545) 51 mg/dL 5-60 Lab Interpretation (test cod e = 26737-1) [facility] Kusro0622-09-73 10:01:09* Test Item Value Reference Range Interpretation Comme nts MAGNESIUM (test code = 6896546738) 2.3 mg/dL 1.7-2.4 Lab Interpretation (test cod e = 95239-3) Normal [facility] Center[facility]osph[facility] [id number] 10:01:09* Test Item Value Reference Range Interpretation Comme nts PHOSPHORUS (test code = 2105232494) 6.5 mg/dL 2.5-5.0 H Lab Interpretation (test cod e = 29693-2) [facility] 09:00:13* Test Item Value Reference Range Interpretation Comme nts POCT GLU (test code = 9313501855) 271 mg/dL 70-110 H Lab Interpretation (test cod e = 60765-9) [facility] Metabolic Panel (05056)2023-07-27 08:04:31* Test Item Value Reference Range Interpretation Comme nts NA (test code = 7184751717) 153 mmol/L 135-145 H K (test code = 8369067686) 4.6 mmol/L 3.5-5.0 CL (test code = 5676517272) 116 mmol/L 98-108 H CO2 TOTAL (test code = 6444717264) 23-31 L AGAP (test code = 2246265605) Unable to calcul ate because, either,SODIUM SERUM, CHLORIDE SERUM, CO2 TOTAL or all are less than the sensitivity of the analyzer. BUN (test code = 5036759357) 24 mg/dL 7-23 H GLUCOSE (test code = 6495890420) 434 mg/dL 70-110 H CREATININE (test code = 2160-0) 1.40 mg/dL 0.60-1.25 H TOTAL BILI (test code = 2114746773) 0.6 mg/dL 0.1-1.1 CALCIUM (test code = 8300725454) 9.3 mg/dL 8.6-10.6 T PROTEIN (test code = 6657742854) 8.8 g/dL 6.3-8.2 H ALBUMIN (test code = 2081060292) 4.7 g/dL 3.5-5.0 ALK PHOS (test code = 0769930432) 82 U/L 34-122 ALTv (test code = 1742-6) 15 U/L 5-50 AST(SGOT) (test code = 7027283657) 12 U/L 13-40 L eGFR (test code = 75407-0) 64.0 mL/min/1.73m2 CKD-EPI eGFR (20 21). Assuming creatinine has been stable day-to-day for at least three months, the eGFR indicates Category G2 (60 - 89 mL/min/1.73 m2) Lab Interpretation (test code = 29945-9) [facility]normal [facility] CenterGlycosylated Hemoglobin (A1C)2023-07-27 08:04:11* Test Item Value Reference Range Interpretation Comme nts HGB A1C (test code = 4548-4) 11.0 % 4.0-5.7 H SONYA (test code = SONYA) Reference RangesNormal: <5.7%Prediabetes: 5.7 - 6.4%Diabetes: > 6.5% Lab Interpretation (test code = 59288-3) [facility]normal [facility] CenterCbc with [id number] 08:03:46* Test Item Value Reference Range Interpretation Comme nts WBC (test code = 6690-2) 12.90 4.20-10.70 H RBC (test code = 789-8) 5.48 4.26-5.52 HGB (test code = 718-7) 16.8 g/dL 12.2-16.4 H HCT (test code = 4544-3) 52.6 % 38.4-49.3 H MCV (test code = 787-2) 96.0 fL 81.7-95.6 H MCH (test code = 785-6) 30.7 pg 26.1-32.7 MCHC (test code = 786-4) 31.9 g/dL 31.2-35.0 RDW-SD (test code = 07590-7) 47.1 fL 38.5-51.6 RDW-CV (test code = 788-0) 13.4 % 12.1-15.4 PLT (test code = 777-3) 285 150-328 MPV (test code = 67199-1) 12.8 fL 9.8-13.0 IPF % (test code = 1042037892) 8.7 % 1.2-10.7 Platelet count measured by fluorescence method. NRBC/100 WBC (test code = 1632963204) 0.0 0.0-10.0 NRBC x10^3 (test code = 5686287556) See_Comment [[employer]ated [employer]] The system which generated this result transmitted reference range: 10*3/?L. The reference range was not used to interpret this result as normal/abnormal. GRAN MAT (NEUT) % (test code = 770-8) 81.7 % IMM GRAN % (test code = 6767424592) 0.90 % LYMPH % (test code = 736-9) 10.9 % MONO % (test code = 5905-5) 6.2 % EOS % (test code = 713-8) 0.0 % BASO % (test code = 706-2) 0.3 % GRAN MAT x10^3(ANC) (test code = 1402486833) 10.53 10*3/uL 1.99-6.95 H IMM GRAN x10^3 (test code = 8037916607) 0.12 10*3/uL 0.00-0.06 H LYMPH x10^3 (test code = 731-0) 1.41 10*3/uL 1.09-3.23 MONO x10^3 (test code = 742-7) 0.80 10*3/uL 0.36-1.02 EOS x10^3 (test code = 711-2) 0.06-0.53 L BASO x10^3 (test code = 704-7) 0.04 10*3/uL 0.01-0.09 Lab Interpretation (test code = 94756-6) [facility]normal [facility] Center[facility]ase2024-[facility] 08:03:10* Test Item Value Reference Range Interpretation Comme nts LIPASE (test code = 2614945735) 168 U/L 0-220 Lab Interpretation (test cod e = 42934-0) Normal [facility]2023-07-27 07:35:10* Test Item Value Reference Range Interpretation Comme nts POCT GLU (test code = 6186912110) 358 mg/dL 70-110 H Lab Interpretation (test cod e = 14070-1) Abnormal [facility] Sgpt6914-39-04 07:24:00Ab Vazquez MD ? ? 07/27/2023 ?4:44 AMCritical Care Performed by: Ab Vazquez MDAuthorized by: Ab Vazquez MD ?Critical care provider statement: ?Critical care time (minutes): ?60 ?Critical care start time: ?07/27/2023 3:42 AM ?Critical care end time: ?07/27/2023 4:42 AM ?Critical care time was exclusive of: ?Separately billable procedures and treating other patients and teaching ti me ?Critical care was necessary to treat or prevent imminent or life-threatening deterioration of the following conditions: ?Endocrine crisis ?Critical care was time spent personally by me on the following activities: ?Blood draw for specimens, development of treatment plan with patient or surrogate, discussions with consultants, discussions with primary provider, evaluation of patient's responseto treatment, examination of patient, interpretation of cardiac output measurements, obtaining history from patient or surrogate, ordering and performing treatments and interventions, ordering and review of laboratory studies, ordering and review of radiographic studies, pulse oximetry, re-evaluation of patient's condition, review of old charts and vascular access procedures ?I assumed direction of critical care for this patient from another provider in my specialty: no ? ?Care discussed with: admitting provider ? [facility] GLUCOSE (AUTOMATED)2023-04-22 17:00:32* Test Item Value Reference Range Interpretation Comme nts POCT GLU (test code = 3860747521) 90 mg/dL 70-110 Lab Interpretation (test cod e = 29422-2) Normal [facility] GLUCOSE (AUTOMATED)2023-04-22 11:28:41* Test Item Value Reference Range Interpretation Comme nts POCT GLU (test code = 6500441358) 86 mg/dL 70-110 Lab Interpretation (test cod e = 72720-4) Normal [facility] GLUCOSE (AUTOMATED)2023-04-22 05:02:02* Test Item Value Reference Range Interpretation Comme nts POCT GLU (test code = 0590139971) 94 mg/dL 70-110 Lab Interpretation (test cod e = 54067-8) Normal [facility] GLUCOSE (AUTOMATED)2023-04-21 23:42:16* Test Item Value Reference Range Interpretation Comme nts POCT GLU (test code = 5353702071) 143 mg/dL 70-110 H Lab Interpretation (test cod e = 39856-0) Abnormal [facility] GLUCOSE (AUTOMATED)2023-04-21 17:29:32* Test Item Value Reference Range Interpretation Comme nts POCT GLU (test code = 5883336524) 110 mg/dL 70-110 Lab Interpretation (test cod e = 37181-1) Normal [facility] GLUCOSE (AUTOMATED)2023-04-21 11:21:45* Test Item Value Reference Range Interpretation Comme nts POCT GLU (test code = 8057822803) 91 mg/dL 70-110 Lab Interpretation (test cod e = 06352-4) Normal [facility] GLUCOSE (AUTOMATED)2023-04-21 05:45:47* Test Item Value Reference Range Interpretation Comme nts POCT GLU (test code = 9697746573) 101 mg/dL 70-110 Lab Interpretation (test cod e = 51605-2) Normal [facility] GLUCOSE (AUTOMATED)2023-04-20 21:21:59* Test Item Value Reference Range Interpretation Comme nts POCT GLU (test code = 5062627741) 101 mg/dL 70-110 Lab Interpretation (test cod e = 45064-8) Normal [facility] GLUCOSE (AUTOMATED)2023-04-20 16:50:51* Test Item Value Reference Range Interpretation Comme nts POCT GLU (test code = 8494785212) 111 mg/dL 70-110 H Lab Interpretation (test cod e = 45168-0) Abnormal [facility] GLUCOSE (AUTOMATED)2023-04-20 12:41:28* Test Item Value Reference Range Interpretation Comme nts POCT GLU (test code = 7174323771) 135 mg/dL 70-110 H Lab Interpretation (test cod e = 20143-2) Abnormal [facility] GLUCOSE (AUTOMATED)2023-04-20 05:03:36* Test Item Value Reference Range Interpretation Comme nts POCT GLU (test code = 6589103039) 104 mg/dL 70-110 Lab Interpretation (test cod e = 23597-6) Normal [facility] W/AUTO [id number] 00:00:00* Test Item Value Reference Range Interpretation Comme nts NUCLEATED RBCS (test code = 61121-8) 0.0 /100 WBC'S See_Comment [Automated messa ge] The system which generated this result transmitted reference range: 0.0 /100 WBC'S. The reference range was not used to interpret this result as normal/abnormal. ABSOLUTE EOSINOPHILS (test code = 45612-4) 0.25 K/UL See_Comment [Automated messa ge] The system which generated this result transmitted reference range: 0.00-0.50 K/UL. The reference range was not used to interpret this result as normal/abnormal. ABSOLUTE LYMPHOCYTES (test code = 92620-4) 2.23 K/UL See_Comment [Automated messa ge] The system which generated this result transmitted reference range: 1.00-4.00 K/UL. The reference range was not used to interpret this result as normal/abnormal. ABSOLUTE MONOCYTES (test code = 39089-3) 0.62 K/UL See_Comment [Automated messa ge] The system which generated this result transmitted reference range: 0.20-1.00 K/UL. The reference range was not used to interpret this result as normal/abnormal. ABSOLUTE NEUTROPHILS (test code = 16566-8) 5.13 K/UL See_Comment [Automated messa ge] The system which generated this result transmitted reference range: 1.50-7.50 K/UL. The reference range was not used to interpret this result as normal/abnormal. BASOPHILS (test code = 86115-5) 0.8 % EOSINOPHILS (test code = 79940-8) 3.0 % HEMATOCRIT (test code = 85530-6) 44.1 % See_Comment [Automated messa ge] The system which generated this result transmitted reference range: 40.0-51.0 %. The reference range was not used to interpret this result as normal/abnormal. HEMOGLOBIN (test code = 718-7) 14.2 G/DL See_Comment [Automated messa ge] The system which generated this result transmitted reference range: 13.5-17.0 G/DL. The reference range was not used to interpret this result as normal/abnormal. LYMPHOCYTES (test code = 49881-9) 26.7 % MCH (test code = 10719-5) 30.8 PG See_Comment [Automated messa ge] The system which generated this result transmitted reference range: 25.0-33.0 PG. The reference range was not used to interpret this result as normal/abnormal. MCHC (test code = 17309-4) 32.2 G/DL See_Comment [Automated messa ge] The system which generated this result transmitted reference range: 31.0-36.0 G/DL. The reference range was not used to interpret this result as normal/abnormal. MCV (test code = 84531-8) 95.7 fL See_Comment [Automated messa ge] The system which generated this result transmitted reference range: 80.0-99.0 fL. The reference range was not used to interpret this result as normal/abnormal. MONOCYTES (test code = 05193-4) 7.4 % NEUTROPHILS (test code = 29563-0) 61.6 % PLATELET COUNT (test code = 68930-0) 264 K/UL See_Comment [Automated messa ge] The system which generated this result transmitted reference range: 130-400 K/UL. The reference range was not used to interpret this result as normal/abnormal. RBC (test code = 71788-8) 4.61 M/UL See_Comment [Automated messa ge] The system which generated this result transmitted reference range: 4.50-6.10 M/UL. The reference range was not used to interpret this result as normal/abnormal. RDW (test code = 24397-8) 12.6 % See_Comment [Automated messa ge] The system which generated this result transmitted reference range: 11.5-15.0 %. The reference range was not used to interpret this result as normal/abnormal. WBC (test code = 10606-1) 8.3 K/UL See_Comment [Automated messa ge] The system which generated this result transmitted reference range: 3.5-11.0 K/UL. The reference range was not used to interpret this result as normal/abnormal. POCT GLUCOSE (AUTOMATED)2022-07-08 17:46:36* Test Item Value Reference Range Interpretation Comme nts POCT GLU (test code = 0869155663) 147 mg/dL 70-110 H Lab Interpretation (test cod e = 26928-4) Abnormal [facility] GLUCOSE (AUTOMATED)2022-07-08 12:28:11* Test Item Value Reference Range Interpretation Comme nts POCT GLU (test code = 6964035314) 100 mg/dL 70-110 Lab Interpretation (test cod e = 22544-2) Normal [facility] GLUCOSE (AUTOMATED)2022-07-08 01:58:08* Test Item Value Reference Range Interpretation Comme nts POCT GLU (test code = 1693290654) 141 mg/dL 70-110 H Lab Interpretation (test cod e = 35201-8) Abnormal [facility] GLUCOSE (AUTOMATED)2022-07-07 23:07:54* Test Item Value Reference Range Interpretation Comme nts POCT GLU (test code = 6694679697) 100 mg/dL 70-110 Lab Interpretation (test cod e = 35302-4) Normal [facility] GLUCOSE (AUTOMATED)2022-07-07 16:52:15* Test Item Value Reference Range Interpretation Comme nts POCT GLU (test code = 6658066862) 96 mg/dL 70-110 Lab Interpretation (test cod e = 82627-5) Normal [facility] GLUCOSE (AUTOMATED)2022-07-07 13:06:36* Test Item Value Reference Range Interpretation Comme nts POCT GLU (test code = 0430125562) 109 mg/dL 70-110 Lab Interpretation (test cod e = 79473-2) Normal [facility] GLUCOSE (AUTOMATED)2022-07-07 01:43:40* Test Item Value Reference Range Interpretation Comme nts POCT GLU (test code = 8831524363) 104 mg/dL 70-110 Lab Interpretation (test cod e = 37779-9) Normal [facility] GLUCOSE (AUTOMATED)2022-07-06 21:03:44* Test Item Value Reference Range Interpretation Comme nts POCT GLU (test code = 8987031986) 103 mg/dL 70-110 Lab Interpretation (test cod e = 14476-4) Normal [facility] GLUCOSE (AUTOMATED)2022-07-06 17:13:59* Test Item Value Reference Range Interpretation Comme nts POCT GLU (test code = 9273689172) 109 mg/dL 70-110 Lab Interpretation (test cod e = 74998-0) [facility] 13:05:55* Test Item Value Reference Range Interpretation Comme nts POCT GLU (test code = 5072332790) 117 mg/dL 70-110 H Lab Interpretation (test cod e = 97593-6) [facility] [id number] 00:00:00* Test Item Value Reference Range Interpretation Comme nts A1C (test code = 4548-4) 7.9 POCT GLUCOSE (AUTOMATED)2021-07-29 17:38:46* Test Item Value Reference Range Interpretation Comme [facility] POCT GLU (test code = 5542209253) 274 mg/dL 70-110 H Lab Interpretation (test cod e = 69983-3) Abnormal [facility] METABOLIC PANEL (NA, K, CL, CO2, GLUCOSE, BUN, CREATININE, CA)2021-07-29 10:38:38* Test Item Value Reference Range Interpretation Comme nts NA (test code = 7145738457) 143 mmol/L 135-145 K (test code = 5668832321) 3.4 mmol/L 3.5-5.0 L Slight hemolysis CL (test code = 8507826695) 117 mmol/L 98-108 H CO2 TOTAL (test code = 2219755002) 19 mmol/L 23-31 L AGAP (test code = 5857648674) 2-16 BUN (test code = 7427354966) 32 mg/dL 7-23 H Slight hemolysis GLUCOSE (test code = 7416404065) 210 mg/dL 70-110 H CREATININE (test code = 2264992326) 0.78 mg/dL 0.60-1.25 CALCIUM (test code = 6129962178) 9.3 mg/dL 8.6-10.6 eGFR (test code = 7575850530) mL/min/1.73m2 SONYA (test code = SONYA) Association of Glomerular Filtration Rate (GFR) and Staging of Kidney Disease* + -----+ --------+ +| GFR (mL/min/1.73 m2) ?| With Kidney Damage ?| ?Without Kidney Damage+ +------- +---- --+| ?>90 ?| ?Stage one ?| ? Normal ?+ ------+ ---------+--------- +| ?60-89 ?| ?Stage two ?| ? Decreased GFR ? + -----+ --------+ +| ?30-59 ?| ?Stage three ?| ? Stage three ? + -----+ --------+ +| ?15-29 ?| ?Stage four ? | ? Stage four ?+ ------+ ---------+--------- +| ?<15 (or dialysis) ? ?| ?Stage five ? | ? Stage five ?+ ------+ ---------+--------- + *Each stage assumes the associated GFR level has been in effect for at least three months. ?Stages 1 to 5, with or without kidney disease, indicate chronic kidney disease. Notes: Determination of stages one and two (with eGFR >59mL/min/1.73 m2) requires estimation of kidney damage for at least three months as defined by structural or functional abnormalities of the kidney, manifested by either:Pathological abnormalities or Markers of kidney damage (including abnormalities in the composition of the blood or urine or abnormalities in imaging tests). Lab Interpretation (test code = 98923-0) Abnormal [facility] GLUCOSE (AUTOMATED)2021-07-29 09:35:38* Test Item Value Reference Range Interpretation Comme nts POCT GLU (test code = 5985927929) 203 mg/dL 70-110 H Lab Interpretation (test cod e = 20276-2) Abnormal [facility] GLUCOSE (AUTOMATED)2021-07-29 05:38:44* Test Item Value Reference Range Interpretation Comme nts POCT GLU (test code = 1984652298) 192 mg/dL 70-110 H Lab Interpretation (test cod e = 08803-2) Abnormal [facility] GLUCOSE (AUTOMATED)2021-07-29 01:49:30* Test Item Value Reference Range Interpretation Comme nts POCT GLU (test code = 7922733092) 251 mg/dL 70-110 H Lab Interpretation (test cod e = 70465-6) Abnormal [facility] GLUCOSE (AUTOMATED)2021-07-28 22:23:08* Test Item Value Reference Range Interpretation Comme nts POCT GLU (test code = 6162481635) 338 mg/dL 70-110 H Lab Interpretation (test cod e = 34662-4) [facility] 20:27:43* Test Item Value Reference Range Interpretation Comme nts POCT GLU (test code = 0023997131) 418 mg/dL 70-110 H Lab Interpretation (test cod e = 14923-2) [facility] 17:14:10* Test Item Value Reference Range Interpretation Comme nts POCT GLU (test code = 1871710678) 316 mg/dL 70-110 H Lab Interpretation (test cod e = 50655-6) [facility]21-[facility]-28 13:24:01* Test Item Value Reference Range Interpretation Comme nts POCT GLU (test code = 2995351814) 336 mg/dL 70-110 H Lab Interpretation (test cod e = 73846-7) Abnormal [facility] GLUCOSE (AUTOMATED)2021-07-28 09:20:36* Test Item Value Reference Range Interpretation Comme nts POCT GLU (test code = 0137052528) 359 mg/dL 70-110 H Notified Provide r Lab Interpretation (test code = 27120-7) Abnormal [facility] GLUCOSE (AUTOMATED)2021-07-28 05:30:05* Test Item Value Reference Range Interpretation Comme nts POCT GLU (test code = 6282804734) 391 mg/dL 70-110 H Notified Provide r Lab Interpretation (test code = 91713-1) Abnormal [facility] GLUCOSE (AUTOMATED)2021-07-28 01:57:46* Test Item Value Reference Range Interpretation Comme nts POCT GLU (test code = 2553391075) 404 mg/dL 70-110 H Notified Provide r Lab Interpretation (test code = 99091-3) Abnormal [facility] GLUCOSE (AUTOMATED)2021-07-28 00:18:49* Test Item Value Reference Range Interpretation Comme nts POCT GLU (test code = 8202545749) 201 mg/dL 70-110 H Lab Interpretation (test cod e = 74399-7) Abnormal [facility] GLUCOSE (AUTOMATED)2021-07-28 00:18:49* Test Item Value Reference Range Interpretation Comme [facility] POCT GLU (test code = 9625396150) 191 mg/dL 70-110 H Lab Interpretation (test cod e = 53495-4) Abnormal [facility] GLUCOSE (AUTOMATED)2021-07-28 00:18:49* Test Item Value Reference Range Interpretation Comme [facility] POCT GLU (test code = 3103718196) 189 mg/dL 70-110 H Lab Interpretation (test cod e = 35842-2) Abnormal [facility] METABOLIC PANEL (NA, K, CL, CO2, GLUCOSE, BUN, CREATININE, CA)2021-07-27 23:47:33* Test Item Value Reference Range Interpretation Comme [facility] NA (test code = 2854647624) 146 mmol/L 135-145 H K (test code = 1775545313) 4.4 mmol/L 3.5-5.0 CL (test code = 8903130406) 121 mmol/L 98-108 H CO2 TOTAL (test code = 4917567454) 14 mmol/L 23-31 L AGAP (test code = 6696848952) 2-16 BUN (test code = 4564370748) 22 mg/dL 7-23 GLUCOSE (test code = 2821475371) 369 mg/dL 70-110 H CREATININE (test code = 1988548544) 0.70 mg/dL 0.60-1.25 CALCIUM (test code = 8566141149) 9.1 mg/dL 8.6-10.6 eGFR (test code = 0689246282) mL/min/1.73m2 SONYA (test code = SONYA) Association of Glomerular Filtration Rate (GFR) and Staging of Kidney Disease* + --+ --+ ------+| GFR (mL/min/1.73 m2) ?| With Kidney Damage ?| ?Without Kidney Damage+ --------+ --------+ +| ?>90 ?| ?Stage one ?| ? Normal ?+ ---+ ---+ -------+| ?60-89 ?| ?Stage two ?| ? Decreased GFR ? + --+ --+ ------+| ?30-59 ?| ?Stage three ?| ? Stage three ? + --+ --+ ------+| ?15-29 ?| ?Stage four ? | ? Stage four ?+ ---+ ---+ -------+| ?<15 (or dialysis) ? ?| ?Stage five ? | ? Stage five ?+ ---+ ---+ -------+ *Each stage assumes the associated GFR level has been in effect for at least three months. ?Stages 1 to 5, with or without kidney disease, indicate chronic kidney disease. Notes: Determination of stages one and two (with eGFR >59mL/min/1.73 m2) requires estimation of kidney damage for at least three months as defined by structural or functional abnormalities of the kidney, manifested by either:Pathological abnormalities or Markers of kidney damage (including abnormalities in the composition of the blood or urine or abnormalities in imaging tests). Lab Interpretation (test code = 87480-6) [facility] 20:09:16* Test Item Value Reference Range Interpretation Comme [facility] POCT GLU (test code = 6722255518) 333 mg/dL 70-110 H Notified Provide r Lab Interpretation (test code = 58349-9) Abnormal [facility] Metabolc Panel (Na, K, Cl, CO2, Glucose, BUN, Creatinine, Ca)2021-07-27 19:43:47* Test Item Value Reference Range Interpretation Comme [facility] NA (test code = 2448430742) 144 mmol/L 135-145 K (test code = 9899139532) 4.3 mmol/L 3.5-5.0 CL (test code = 7802208244) 121 mmol/L 98-108 H CO2 TOTAL (test code = 3754030189) 12 mmol/L 23-31 L AGAP (test code = 0882276028) 2-16 BUN (test code = 9219385989) 20 mg/dL 7-23 GLUCOSE (test code = 9426615685) 318 mg/dL 70-110 H CREATININE (test code = 0430922765) 0.70 mg/dL 0.60-1.25 CALCIUM (test code = 8192232489) 8.9 mg/dL 8.6-10.6 eGFR (test code = 3565645606) mL/min/1.73m2 SONYA (test code = SONYA) Association of Glomerular Filtration Rate (GFR) and Staging of Kidney Disease* + --+ --+ ------+| GFR (mL/min/1.73 m2) ?| With Kidney Damage ?| ?Without Kidney Damage+ --------+ --------+ +| ?>90 ?| ?Stage one ?| ? Normal ?+ ---+ ---+ -------+| ?60-89 ?| ?Stage two ?| ? Decreased GFR ? + --+ --+ ------+| ?30-59 ?| ?Stage three ?| ? Stage three ? + --+ --+ ------+| ?15-29 ?| ?Stage four ? | ? Stage four ?+ ---+ ---+ -------+| ?<15 (or dialysis) ? ?| ?Stage five ? | ? Stage five ?+ ---+ ---+ -------+ *Each stage assumes the associated GFR level has been in effect for at least three months. ?Stages 1 to 5, with or without kidney disease, indicate chronic kidney disease. Notes: Determination of stages one and two (with eGFR >59mL/min/1.73 m2) requires estimation of kidney damage for at least three months as defined by structural or functional abnormalities of the kidney, manifested by either:Pathological abnormalities or Markers of kidney damage (including abnormalities in the composition of the blood or urine or abnormalities in imaging tests). Lab Interpretation (test code = 04987-1) Abnormal [facility] GLUCOSE (AUTOMATED)2021-07-27 16:42:57* Test Item Value Reference Range Interpretation Comme [facility] POCT GLU (test code = 8991742001) 189 mg/dL 70-110 H Notified Provide r Lab Interpretation (test code = 21524-8) Abnormal [facility] GLUCOSE (AUTOMATED)2021-07-27 15:40:33* Test Item Value Reference Range Interpretation Comme [facility] POCT GLU (test code = 3938380392) 115 mg/dL 70-110 H Notified Provide r Lab Interpretation (test code = 30350-1) Abnormal [facility] GLUCOSE (AUTOMATED)2021-07-27 14:45:56* Test Item Value Reference Range Interpretation Comme [facility] POCT GLU (test code = 5054229357) 150 mg/dL 70-110 H Notified Provide r Lab Interpretation (test code = 64882-0) [facility] [id number] 14:04:02* Test Item Value Reference Range Interpretation Comme nts IRON (test code = 8921932164) 117 ug/dL 50-160 TIBC (test code = 1064846042) 272 ug/dL 250-410 % FE SAT (test code = 6053377000) 43 % 20-50 Lab Interpretation (test cod e = 39686-5) [facility] (68163)(TOTAL CHOLESTEROL, TRIGLYCERIDES, HDL)2021-07-27 13:54:18* Test Item Value Reference Range Interpretation Comme nts CHOL (test code = 1234745266) 264 mg/dL 120-200 H HDL (test code = 3370377283) 30 mg/dL >40 L HDLC RATIO (test code = 2990753931) See_Comment H [Automated [employer]] The system which generated this result transmitted reference range: <=5.0. The reference range was not used to interpret this result as normal/abnormal. TRIG (test code = 6725584539) 372 mg/dL 30-170 H LDL CHOL (test code = 95354-6) 160 mg/dL See_Comment [Automated messa [employer]] The system which generated this result transmitted reference range: <=160. The reference range was not used to interpret this result as normal/abnormal. VLDL (test code = 4298555566) 74 mg/dL 5-60 H Lab Interpretation (test code = 72517-8) [facility]21-[facility] 13:45:55* Test Item Value Reference Range Interpretation Comme nts POCT GLU (test code = 5098436005) 211 mg/dL 70-110 H Notified Provide r Lab Interpretation (test code = 56432-1) Abnormal [facility] Metabolic Panel (Na, K, Cl, CO2, Glucose, BUN, Creatinine, Ca)2021-07-27 13:29:47* Test Item Value Reference Range Interpretation Comme nts NA (test code = 5399017115) 149 mmol/L 135-145 H K (test code = 5958641867) 4.0 mmol/L 3.5-5.0 CL (test code = 8728968746) 123 mmol/L 98-108 H CO2 TOTAL (test code = 8852064586) 18 mmol/L 23-31 L AGAP (test code = 7372535610) 2-16 BUN (test code = 8596718683) 21 mg/dL 7-23 GLUCOSE (test code = 3793727348) 212 mg/dL 70-110 H CREATININE (test code = 4843758041) 0.85 mg/dL 0.60-1.25 CALCIUM (test code = 8756837894) 9.1 mg/dL 8.6-10.6 eGFR (test code = 5279329088) mL/min/1.73m2 SONYA (test code = SONYA) Association of Glomerular Filtration Rate (GFR) and Staging of Kidney Disease* + --+ --+ ------+| GFR (mL/min/1.73 m2) ?| With Kidney Damage ?| ?Without Kidney Damage+ --------+ --------+ +| ?>90 ?| ?Stage one ?| ? Normal ?+ ---+ ---+ -------+| ?60-89 ?| ?Stage two ?| ? Decreased GFR ? + --+ --+ ------+| ?30-59 ?| ?Stage three ?| ? Stage three ? + --+ --+ ------+| ?15-29 ?| ?Stage four ? | ? Stage four ?+ ---+ ---+ -------+| ?<15 (or dialysis) ? ?| ?Stage five ? | ? Stage five ?+ ---+ ---+ -------+ *Each stage assumes the associated GFR level has been in effect for at least three months. ?Stages 1 to 5, with or without kidney disease, indicate chronic kidney disease. Notes: Determination of stages one and two (with eGFR >59mL/min/1.73 m2) requires estimation of kidney damage for at least three months as defined by structural or functional abnormalities of the kidney, manifested by either:Pathological abnormalities or Markers of kidney damage (including abnormalities in the composition of the blood or urine or abnormalities in imaging tests). Lab Interpretation (test code = 24022-4) [facility] 12:33:53* Test Item Value Reference Range Interpretation Comme [facility] POCT GLU (test code = 5957480139) 197 mg/dL 70-110 H Notified Provide r Lab Interpretation (test code = 64117-3) [facility]normal [facility]ERR[facility]IN [id number] 12:06:36* Test Item Value Reference Range Interpretation Comme nts FERRITIN (test code = 8264484185) 583.0 ng/mL 18.0-464.0 H SONYA (test code = SONYA) Biotin has been reported to cause a negative bias, interpret results relative to patient's use of biotin. Lab Interpretation (test code = 98797-6) Abnormal [facility] Metabolic Panel (Na, K, Cl, CO2, Glucose, BUN, Creatinine, Ca)2021-07-27 09:53:49* Test Item Value Reference Range Interpretation Comme nts NA (test code = 4157160723) 149 mmol/L 135-145 H K (test code = 9382028925) 4.2 mmol/L 3.5-5.0 CL (test code = 7656223492) 123 mmol/L 98-108 H CO2 TOTAL (test code = 1491167498) 13 mmol/L 23-31 L AGAP (test code = 5755365350) 2-16 BUN (test code = 9262223208) 21 mg/dL 7-23 GLUCOSE (test code = 4998402673) 210 mg/dL 70-110 H CREATININE (test code = 3400005981) 0.74 mg/dL 0.60-1.25 CALCIUM (test code = 8491258261) 9.2 mg/dL 8.6-10.6 eGFR (test code = 1253865545) mL/min/1.73m2 SONYA (test code = SONYA) Association of Glomerular Filtration Rate (GFR) and Staging of Kidney Disease* + --+ --+ ------+| GFR (mL/min/1.73 m2) ?| With Kidney Damage ?| ?Without Kidney Damage+ --------+ --------+ +| ?>90 ?| ?Stage one ?| ? Normal ?+ ---+ ---+ -------+| ?60-89 ?| ?Stage two ?| ? Decreased GFR ? + --+ --+ ------+| ?30-59 ?| ?Stage three ?| ? Stage three ? + --+ --+ ------+| ?15-29 ?| ?Stage four ? | ? Stage four ?+ ---+ ---+ -------+| ?<15 (or dialysis) ? ?| ?Stage five ? | ? Stage five ?+ ---+ ---+ -------+ *Each stage assumes the associated GFR level has been in effect for at least three months. ?Stages 1 to 5, with or without kidney disease, indicate chronic kidney disease. Notes: Determination of stages one and two (with eGFR >59mL/min/1.73 m2) requires estimation of kidney damage for at least three months as defined by structural or functional abnormalities of the kidney, manifested by either:Pathological abnormalities or Markers of kidney damage (including abnormalities in the composition of the blood or urine or abnormalities in imaging tests). Lab Interpretation (test code = 77083-9) [facility]21-[facility] 08:18:54* Test Item Value Reference Range Interpretation Comme [facility] POCT GLU (test code = 7377818031) 260 mg/dL 70-110 H Lab Interpretation (test cod e = 72556-7) [facility] (Na, K, Cl, CO2, Glucose, BUN, Creatinine, Ca)2021-07-27 07:03:09* Test Item Value Reference Range Interpretation Comme [facility] NA (test code = 3123414894) 150 mmol/L 135-145 H K (test code = 5863707713) 4.1 mmol/L 3.5-5.0 CL (test code = 3370709053) 120 mmol/L 98-108 H CO2 TOTAL (test code = 3211082015) 9 mmol/L 23-31 L AGAP (test code = 6617078525) 2-16 H BUN (test code = 3151045669) 20 mg/dL 7-23 GLUCOSE (test code = 8305802635) 363 mg/dL 70-110 H CREATININE (test code = 5875439279) 1.13 mg/dL 0.60-1.25 CALCIUM (test code = 7611257127) 9.2 mg/dL 8.6-10.6 eGFR (test code = 2488458454) mL/min/1.73m2 SONYA (test code = SONYA) Association of Glomerular Filtration Rate (GFR) and Staging of Kidney Disease* + --+ --+ ------+| GFR (mL/min/1.73 m2) ?| With Kidney Damage ?| ?Without Kidney Damage+ --------+ --------+ +| ?>90 ?| ?Stage one ?| ? Normal ?+ ---+ ---+ -------+| ?60-89 ?| ?Stage two ?| ? Decreased GFR ? + --+ --+ ------+| ?30-59 ?| ?Stage three ?| ? Stage three ? + --+ --+ ------+| ?15-29 ?| ?Stage four ? | ? Stage four ?+ ---+ ---+ -------+| ?<15 (or dialysis) ? ?| ?Stage five ? | ? Stage five ?+ ---+ ---+ -------+ *Each stage assumes the associated GFR level has been in effect for at least three months. ?Stages 1 to 5, with or without kidney disease, indicate chronic kidney disease. Notes: Determination of stages one and two (with eGFR >59mL/min/1.73 m2) requires estimation of kidney damage for at least three months as defined by structural or functional abnormalities of the kidney, manifested by either:Pathological abnormalities or Markers of kidney damage (including abnormalities in the composition of the blood or urine or abnormalities in imaging tests). Lab Interpretation (test code = 06901-4) Abnormal [facility] GLUCOSE (AUTOMATED)2021-07-27 06:58:27* Test Item Value Reference Range Interpretation Comme [facility] POCT GLU (test code = 2946167056) 328 mg/dL 70-110 H Lab Interpretation (test cod e = 24598-9) [facility]2021-07-27 06:24:33* Test Item Value Reference Range Interpretation Comme [facility] POCT GLU (test code = 4930425646) 413 mg/dL 70-110 H Lab Interpretation (test cod e = 84464-2) Abnormal [facility] CenterBetahydroxy-Tmspljry2451-42-01 05:07:39* Test Item Value Reference Range Interpretation Comme nts BOH (test code = 7796501310) 7.0 mmol/L Test CommentTest Comment SONYA (test code = SONYA) Normal Ranges: ? ? Nonfasting ? Less than 0.1 mmol/L ? ? Overnight Fast ? ? ? Less than 0.4 mmol/L ? ? Fasting (1-2 weeks) ?6-8 mmol/L Test developed and characteristics determined by [facility] Laboratory Services. [facility] Arterial Blood Gas. Notify Utilization Reviewer of ABG results. Venous blood gas (VBG) may be obtained if patient not tachypneic or with mental status changes. Consider repeat if pH< 7.2.2021-07-27 05:05:49* Test Item Value Reference Range Interpretation Comme nts PH (test code = 2) 7.35-7.45 L PCO2 (test code = 3698051038) See_Comment L [Automated messa ge] The system which generated this result transmitted reference range: 35 - 45 mmHg. The reference range was not used to interpret this result as normal/abnormal. PO2 (test code = 2296327621) See_Comment H [Automated messa ge] The system which generated this result transmitted reference range: 80 - 100 mmHg. The reference range was not used to interpret this result as normal/abnormal. HCO3 (test code = 8743723169) See_Comment L [Automated messa ge] The system which generated this result transmitted reference range: 22 - 26 mEq/L. The reference range was not used to interpret this result as normal/abnormal. BE (test code = 4252712519) See_Comment L [Automated messa ge] The system which generated this result transmitted reference range: -3.0 - 3.0 mEq/L. The reference range was not used to interpret this result as normal/abnormal. Lab Interpretation (test code = 85385-7) [facility]21-[facility]-27 05:00:37* Test Item Value Reference Range Interpretation Comme [facility] POCT GLU (test code = 9846143502) 422 mg/dL 70-110 H Lab Interpretation (test cod e = 65568-9) Abnormal [facility] CenterOsmolality Haond2703-93-69 04:56:41* Test Item Value Reference Range Interpretation Comme [facility] OSMOLALITY (test code = 2692-2) See_Comment HH [Automated messa ge] The system which generated this result transmitted reference range: 278 - 305 mOsm/kg. The reference range was not used to interpret this result as normal/abnormal. Lab Interpretation (test code = 64247-4) [facility]normal [facility] CenterGlycosylated Hemoglobin (A1C)2021-07-27 04:46:44* Test Item Value Reference Range Interpretation Comme nts HGB A1C (test code = 4548-4) 11.4 % 4.0-5.7 H SONYA (test code = SONYA) Reference RangesNormal: <5.7%Prediabetes: 5.7 - 6.4%Diabetes: > 6.5% Lab Interpretation (test code = 89754-9) [facility] Met[facility] (Na, K, Cl, CO2, Glucose, BUN, Creatinine, Ca)2021-07-27 04:33:13* Test Item Value Reference Range Interpretation Comme nts NA (test code = 5669564550) 144 mmol/L 135-145 K (test code = 9588409745) 4.4 mmol/L 3.5-5.0 CL (test code = 4464146950) 117 mmol/L 98-108 H CO2 TOTAL (test code = 2046375873) 7 mmol/L 23-31 L AGAP (test code = 3415088531) 2-16 H BUN (test code = 4933405828) 22 mg/dL 7-23 GLUCOSE (test code = 1842301601) 535 mg/dL 70-110 HH CREATININE (test code = 1753354514) 1.00 mg/dL 0.60-1.25 CALCIUM (test code = 9562240334) 8.8 mg/dL 8.6-10.6 eGFR (test code = 7593046261) mL/min/1.73m2 SONYA (test code = SONYA) Association of Glomerular Filtration Rate (GFR) and Staging of Kidney Disease* + --+ --+ ------+| GFR (mL/min/1.73 m2) ?| With Kidney Damage ?| ?Without Kidney Damage+ --------+ --------+ +| ?>90 ?| ?Stage one ?| ? Normal ?+ ---+ ---+ -------+| ?60-89 ?| ?Stage two ?| ? Decreased GFR ? + --+ --+ ------+| ?30-59 ?| ?Stage three ?| ? Stage three ? + --+ --+ ------+| ?15-29 ?| ?Stage four ? | ? Stage four ?+ ---+ ---+ -------+| ?<15 (or dialysis) ? ?| ?Stage five ? | ? Stage five ?+ ---+ ---+ -------+ *Each stage assumes the associated GFR level has been in effect for at least three months. ?Stages 1 to 5, with or without kidney disease, indicate chronic kidney disease. Notes: Determination of stages one and two (with eGFR >59mL/min/1.73 m2) requires estimation of kidney damage for at least three months as defined by structural or functional abnormalities of the kidney, manifested by either:Pathological abnormalities or Markers of kidney damage (including abnormalities in the composition of the blood or urine or abnormalities in imaging tests). Lab Interpretation (test code = 77511-8) [facility]normal [facility] CenterMagnesium Bxjci3475-12-32 04:23:31* Test Item Value Reference Range Interpretation Comme nts MAGNESIUM (test code = 5463056161) 2.4 mg/dL 1.7-2.4 Lab Interpretation (test cod e = 41638-5) Normal [facility] CenterPhosphorus [id number] 04:23:31* Test Item Value Reference Range Interpretation Comme nts PHOSPHORUS (test code = 7960371916) 3.4 mg/dL 2.5-5.0 Lab Interpretation (test cod e = 39111-5) Normal [facility] CenterCB with [id number] 04:09:09* Test Item Value Reference Range Interpretation Comme nts WBC (test code = 6690-2) See_Comment H [Automated message] The system which generated this result transmitted reference range: 4.20 - 10.70 10*3/?L. The reference range was not used to interpret this result as normal/abnormal. RBC (test code = 789-8) See_Comment [Automated message] The system which generated this result transmitted reference range: 4.26 - 5.52 10*6/?L. The reference range was not used to interpret this result as normal/abnormal. HGB (test code = 718-7) 15.1 g/dL 12.2-16.4 HCT (test code = 4544-3) 45.9 % 38.4-49.3 MCV (test code = 787-2) 94.6 fL 81.7-95.6 MCH (test code = 785-6) 31.1 pg 26.1-32.7 MCHC (test code = 786-4) 32.9 g/dL 31.2-35.0 RDW-SD (test code = 47170-0) 45.5 fL 38.5-51.6 RDW-CV (test code = 788-0) 13.1 % 12.1-15.4 PLT (test code = 777-3) See_Comment [Automated message] The system which generated this result transmitted reference range: 150 - 328 10*3/?L. The reference range was not used to interpret this result as normal/abnormal. MPV (test code = 59355-9) 12.6 fL 9.8-13.0 NRBC/100 WBC (test code = 4564235174) See_Comment [Automated message] The system which generated this result transmitted reference range: 0.0 - 10.0 /100 WBCs. The reference range was not used to interpret this result as normal/abnormal. NRBC x10^3 (test code = 9722842840) <0.01 See_Comment [Automated message] The system which generated this result transmitted reference range: 10*3/?L. The reference range was not used to interpret this result as normal/abnormal. GRAN MAT (NEUT) % (test code = 770-8) 79.8 % IMM GRAN % (test code = 3821428440) 0.50 % LYMPH % (test code = 736-9) 12.8 % MONO % (test code = 5905-5) 6.5 % EOS % (test code = 713-8) 0.0 % BASO % (test code = 706-2) 0.4 % GRAN MAT x10^3(ANC) (test code = 2645784682) 11.25 10*3/uL 1.99-6.95 H IMM GRAN x10^3 (test code = 7628347078) 0.07 10*3/uL 0.00-0.06 H LYMPH x10^3 (test code = 731-0) 1.80 10*3/uL 1.09-3.23 MONO x10^3 (test code = 742-7) 0.91 10*3/uL 0.36-1.02 EOS x10^3 (test code = 711-2) <0.03 0.06-0.53 L BASO x10^3 (test code = 704-7) 0.05 10*3/uL 0.01-0.09 Lab Interpretation (test code = 57417-2) [facility]21-[facility]-27 03:54:04* Test Item Value Reference Range Interpretation Comme nts POCT GLU (test code = 3275187477) 572 mg/dL 70-110 HH Lab Interpretation (test cod e = 42604-1) Abnormal [facility] Consult Notes Date/Time Note Provider Source 2023-08-17 14:09:34 Associated Order(s): CONSULT SPEECH Speech-Language Pathology Clinical Swallow Evaluation 08/17/2023 Colin Burns : 1980 Age/Sex: 42 year old male Time IN/OUT: 1292-3335 Referring Physician: Benjamin Pires DO Date of Referral: 08/16/2023 Reason for Referral: dysphagia Date of Admission/Onset: 08/16/2023 SUBJECTIVE: Pt getting vitals read and medication when [employer] entered room. Pt had two family members at his side. Pt was in the hospital on 04/19/2023, 07/27/2023, 08/12/2023, and yesterday 08/16/2023. Pt has been noncompliant with his medications and is currently in DKA. Pt has been NPO since arriving back into the hospital due to generalized weakness and lethargy. Pt's nurse stated pt was unable to stay awake long enough to eat/drink. Pt stated that his throat hurts when he tries to eat or drink. He says his sore throat makes swallowing difficult. Pt was alert and oriented x4 and agreeable to the swallow evaluation. OBJECTIVE: is being seen for a clinical swallow evaluation. Colin Burns is a 42 year old male admitted for weakness, DKA, AMS with PMH significant for diabetes mellitus type 2, hypertension, hyperlipidemia, medication noncompliance. Pertinent Imaging: XR CHEST 1 VW Result Date: 08/13/2023 FINDINGS/IMPRESSION: Lungs/Pleura: Low lung volumes are noted. No new focal consolidation. No large pleural effusions or pneumothorax. Heart/Mediastinum: The cardiac silhouette remains enlarged. Bones and soft tissues: No acute osseous abnormality is identified. Preliminary Report Dictated by Resident: Carla Nath I, Andreia Taylor MD., have reviewed this study and agree with the above report. CT ABDOMEN PELVIS W CONTRAST Result Date: 07/27/[address] evidence for acute pancreatitis. 2. Subtle circumferential bladder wall thickening could be artifactual from partially distended lumen or cystitis. 3. Subtle focal haziness and wall thickening at the distal abdominal aortic wall of no known chronicity, could represent age advanced intimal thickening from atherosclerotic disease or less likely vasculitis. Preliminary Report Dictated by Resident: Christopher Hummel I, Gladis Tracy MD., have reviewed this study and agree with the above report. Previous [employer] Services/Swallow History: No previous history found in chart and none reported by pt and pt's family. Past Medical History: Diagnosis Date Diabetes mellitus Hyperlipidemia Hypertension History reviewed. No pertinent surgical history. General Behavior: Alert, Cooperative, Drowsy, Fatigued, and Lethargic Hearing: WFL for speech Respiratory Status: room air Orientation/Cognition: - Patient oriented to: person, place, time, and situation - Response type: verbal - Follows 1-step commands: Yes Current Diet Texture/Means of Nutrition: NPO except meds Oral Motor Exam Dentition and Oral Cavity: dentate, natural dentition, signs of thrush, and dried secretions. Pt's gums and tongue started to bleed when [employer] attempted to clean pt's oral cavity. Face within normal limits and symmetrical Jaw within normal limits and symmetrical Lips within normal limits and symmetrical Tongue midline on protrusion and impaired function, characterized by yellow appearance - possible thrush. Pt's tongue started to bleed when [employer] attempted to clean pt's oral cavity Palate within normal limits and symmetrical Vocal Quality clear Speech clear/intelligible CLINICAL SWALLOW EVALUATION Swallows on command: Yes Handles Secretions: Yes Volitional Cough: present Spontaneous Cough: No PO trials were administered by patient and [employer]. Patient was provided with multiple bites/sips of ice chips, thin liquid (0), pudding (4), and easy to chew solid (7) consistencies with the following observations: Oral Stage Anterior leakage of bolus not observed Pocketing of bolus not observed Subjectively prolonged oral phase not observed Oral residue not observed Mastication WNL Pharyngeal Stage Subjectively reduced laryngeal elevation not observed Coughing or throat clearing not observed Change in voice quality not observed Multiple swallows subjectively not observed Respiratory sufficiency and coordination WFL - no increased work of breathing and/or oxygen sats and respiratory rate remained stable Report of globus sensation does not report 3 oz water challenge passed Patient/Family/Staff education: Provided verbally. Discussed findings of evaluation, recommendations and [employer] plan of care. Discussed risks of aspiration/dysphagia and possible associated complications including respiratory distress, respiratory infections (such as PNA), weight loss/difficulty meeting nutritional needs, possible need for mechanical ventilation, and even . Discussed recommendations for reducing risks of acquiring an aspiration-related respiratory infection including frequent, thorough oral hygiene care and maintaining good mobility as able. Discussed importance of frequent, thorough oral hygiene care. Educated about swallow precautions. Patient/family verbalized understanding and is in agreement with plan of care. RN and referring provider notified of findings and recommendations. Patient/Family goal: safe PO intake and to swallow with less effort/discomfort ASSESSMENT/IMPRESSIONS: Colin Burns presents with: Diagnosis: suspected normal oropharyngeal swallow with Odynophagia possibly due to oral infection/thrush Etiology of suspected dysphagia/Risk factors for dysphagia: AMS, decreased alertness, complex medical condition/hospitalization, and medication noncompliance Observations/Complaints: no overt s/sx of aspiration and signs of discomfort after swallow. Pt stated that sometimes he feels nauseated after eating/drinking. Factors raising concern for aspiration or pharyngeal dysphagia: elevated WBC and medication noncompliance leading to DKA and AMS Suspected risk for aspiration: low Factors increasing risk for aspiration-related respiratory complication such as pneumonia: reduced mobility and poor oral hygiene Risk for malnutrition/dehydration or not meeting nutritional needs: yes due to pt's c/o pain during swallow. Additional comments: NA *Note: aspiration cannot be ruled out nor confirmed without instrumental assessment/imaging. Prognosis: good for safe po intake with time, adherence to texture modifications, adherence to swallow precautions, adherence to [employer] recommendations, improvement in alertness and mental status, and universal swallow precautions due to above findings. RECOMMENDATIONS/GOALS: Diet: Recommend patient initiate a easy to chew (IDDSI level 7)-textured diet with thin liquids (IDDSI level 0) and swallow precautions: sit fully upright/in chair, small single bites/sips, single sips at a time, alternate bites/sips, remain upright after PO intake, slow rate of intake, and suspend meds in puree May update diet when pt is deemed medically fit. Precautions: - Swallow Precautions: sit fully upright/in chair, small single bites/sips, single sips at a time, alternate bites/sips, remain upright after PO intake, slow rate of intake, and suspend meds in puree - To reduce the risk of developing an aspiration-related infection, recommend the following: - Keep head of bed elevated to at least 30 degrees - Thorough oral care 3-5x daily including before any PO intake - Maintain level of physical activity and/or repositioning as much as possible - Monitor closely for s/sx of aspiration (i.e. coughing, throat clearing, wet vocal quality, fever spikes 30-60 minutes after meals, increased WBC, opacities or focal consolidations on CXR). Should these occur, seek medical attention and consider discontinuing PO intake. Instrumental Swallow Assessment: no - Not indicated at this time. Additional Referrals: - Yes; see below - Recommend wet and dry sugar bin operator consult if not already following. Continued [employer] services: No further acute [employer] services indicated at this time, so service is signing off. Please re-consult if indicated. Thank you. Discharge Recommendations: - Return to prior living situation. Eun Staples M.S., [facility] Speech Language Pathology [facility] Department: [phone] [facility] - Health History and Physical Notes Date/Time Note Provider Source 2023-08-16 23:39:36 Medicine History & Physical Date of Service: 08/16/2023 Pt presents from: Outside ER CC: DKA History of Present Illness: Colin Burns is a 42 year old male with past md hx of diabetes mellitus type 2, medication noncompliance, hypertension and hyperlipidemia that presents to an outside hospital for weakness. Per patient since discharge has been noncompliant with his medications secondary to his family telling him not to take it due to superstitious that will harm him. During this timeframe he is developed increasing weakness and went to an outside ED where he did receive workup indicating patient was in DKA. Also workup showed approximately 2 x 2 centimeter erythematous patch mid back with a self draining abscess. At that facility he was given 10 units of insulin for his DKA along with IV fluids. He was also started on clindamycin with ceftriaxone and requested transfer to our facility for continued management. On my exam he is alert and oriented x 2. As mentioned above he is noncompliant with medications due to family preventing him. Denies smoking drinking or drugs. ROS: Pt denies F / N / V / D / Constipation / CP / SOB / cough / Abd pain / dysuria / hematuria / melena / hematochezia / rashes / suicidal or homicidal ideation / All others negative Review of Hx/Meds: PMH: Past Medical History: Diagnosis Date Diabetes mellitus Hyperlipidemia Hypertension PSH: has no past surgical history on file. Family Hx: Noncontributory unless mentioned above Social History Tobacco Use Smoking status: Former Types: Cigarettes Passive exposure: Past Smokeless tobacco: Former Tobacco comments: Pt vapes currently Current Scheduled Medications Current IV Current Facility-Administered Medications: ampicillin-sulbactam (UNASYN) 3 g in NaCl 0.9% (NS) 100 mL MINI-BAG, 3 g, IV Piggyback, Q6H ABX, Benjamin Pires DO, Last Rate: 200 mL/hr at 08/16/232226, 3 g at 08/16/232226 benzocaine-menthoL (CEPACOL SORE THROAT (SHAHEED-MEN)) lozenge 1 Lozenge, 1 Lozenge, Oral, Q4HPRN, Benjamin Pires DO D5W 0.45% NaCl (1/2NS) IV infusion 1,000 mL, 1,000 mL, IV Infusion, PRN - SEE INSTRUCTIONS, Benjamin Pires DO, Last Rate: 200 mL/hr at 08/16/232308, 1,000 mL at 08/16/232308 heparin (porcine) injection 5,000 Units, 5,000 Units, Subcutaneous, Q8H, Benjamin Pires DO, 5,000 Units at 08/16/232228 insulin regular human (HUMULIN R) 100 Units in NaCl 0.9% (NS) 100 mL infusion, 0-0.3 Units/kg/hr, IV Infusion, TITRATE, Benjamin Pires DO, Last Rate: 8.8 mL/hr at 08/16/232206, 0.1 Units/kg/hr at 08/16/232206 NaCl 0.45% (1/2NS) IV infusion 1,000 mL, 1,000 mL, IV Infusion, CONTINUOUS, Benjamin Pires DO, Stopped at 08/16/232309 potassium chloride in water (KCL) 20 mEq/100 mL RTU IVPB 20 mEq, 20 mEq, IV Piggyback, ONCE, Benjamin Pires DO, Last Rate: 50 mL/hr at 08/16/232256, 20 mEq at 08/16/232256 Objective: Vitals: Vitals: 08/16/23202108/16/23202708/16/23219908/16/232299 BP: 124/80 127/85 118/80 Pulse: 95 106 111 Resp: Temp: 36.4 ?C (97.5 ?F) TempSrc: Temporal Artery SpO2: 97% 99% 99% Weight: 88 kg (194 lb) Height: 1.727 m (5' 8") I/O's: Intake/Output Summary (Last 24 hours) at 08/16/2023 2339 Last data filed at 08/16/2023 2257 Gross per 24 hour Intake 0 ml Output 1280 ml Net -1280 ml Physical Exam: General: NAD, Alert and oriented x 2, lying in bed comfortable, cogent speech. HEENT: anicteric, oral mucosa dry Neck: supple, no JVD, no bruits. Chest: CTA B/L, no W/R/C. Heart: RRR, S1/S2, no M/G/R Abdominal: BS normoactive, soft, ND, NT. Skin/Extremities: no rash, no cyanosis, warm and dry, no LE edema. Neurological: CN II-XII grossly intact, no focal deficits. Labs: BMP:BMP NA (mmol/L) Date Value 08/16/2023 158 (H) 08/14/2023 145 08/13/2023 146 (H) 08/13/2023 148 (H) 08/13/2023 150 (H) K (mmol/L) Date Value 08/16/2023 4.2 08/14/2023 3.6 08/13/2023 3.6 08/13/2023 4.1 08/13/2023 3.8 CALCIUM (mg/dL) Date Value 08/16/2023 9.5 08/14/2023 8.5 (L) 08/13/2023 8.7 08/13/2023 8.5 (L) 08/13/2023 8.3 (L) CL (mmol/L) Date Value 08/16/2023 125 (H) 08/14/2023 116 (H) 08/13/2023 118 (H) 08/13/2023 119 (H) 08/13/2023 124 (H) BUN (mg/dL) Date Value 08/16/2023 23 08/14/2023 12 08/13/2023 17 08/13/2023 18 08/13/2023 21 CREATININE (mg/dL) Date Value 08/16/2023 1.13 08/14/2023 0.56 (L) 08/13/2023 0.64 08/13/2023 0.75 08/13/2023 0.69 GLUCOSE (mg/dL) Date Value 08/16/2023 271 (H) 08/14/2023 184 (H) 08/13/2023 208 (H) 08/13/2023 270 (H) 08/13/2023 171 (H) CO2 TOTAL (mmol/L) Date Value 08/16/2023 5 (L) 08/14/2023 18 (L) 08/13/2023 19 (L) 08/13/2023 20 (L) 08/13/2023 15 (L) CBC:CBC WBC (10*3/?L) Date Value 08/14/2023 9.64 RBC (10*6/?L) Date Value 08/14/2023 3.94 (L) PLT (10*3/?L) Date Value 08/14/2023 143 (L) HGB (g/dL) Date Value 08/14/2023 12.4 HCT (%) Date Value 08/14/2023 37.7 (L) BMP:Hepatic Function Panel ALBUMIN (g/dL) Date Value 08/12/2023 4.4 T PROTEIN (g/dL) Date Value 08/12/2023 7.4 TOTAL BILI (mg/dL) Date Value 08/12/2023 0.6 BILI UNCON (mg/dL) Date Value 04/21/2023 0.6 BILI CONJ (mg/dL) Date Value 04/21/2023 0.0 ALTv (U/L) Date Value 08/12/2023 14 AST(SGOT) (U/L) Date Value 08/12/2023 16 ALK PHOS (U/L) Date Value 08/12/2023 81 Troponin: Recent Labs 08/12/23 0844 TROPNI 0.005 I have reviewed all relevant labs Imaging: XR CHEST 1 VW Result Date: 08/13/2023 EXAM: XR CHEST 1 VW COMPARISON: None HISTORY:42 years old, Male with SOB Portable. FINDINGS/IMPRESSION: Lungs/Pleura: Low lung volumes are noted. No new focal consolidation. No large pleural effusions or pneumothorax. Heart/Mediastinum: The cardiac silhouette remains enlarged. Bones and soft tissues: No acute osseous abnormality is identified. Preliminary Report Dictated by Resident: Carla Nath I, Andreia Taylor MD., have reviewed this study and agree with the above report. CT ABDOMEN PELVIS W CONTRAST Result Date: 07/27/2023 EXAM: CT ABDOMEN/PELVIS WITH CONTRAST HISTORY: Abdominal pain, acute, nonlocalized Evaluate for acute pancreatitis . Lipase 168. COMPARISON: None TECHNIQUE AND FINDINGS: Contiguous axial imaging from the level of the lung bases through the proximal thighs was performed after the administration of intravenous contrast. Coronal and sagittal reconstructions were obtained. FINDINGS: LOWER THORAX: The lungs bases are clear. No cardiomegaly. LIVER: No focal hepatic lesions. Normal size and contour. GALLBLADDER AND BILIARY TREE: No biliary ductal dilation. No gallbladder wall thickening. SPLEEN: No splenomegaly. PANCREAS: Normal parenchymal enhancement. No peripancreatic edema. No ductal dilation or masses. ADRENAL GLANDS: No adrenal nodules. KIDNEYS: Bilateral symmetrical enhancement. No hydronephrosis, stones, or masses. GI TRACT: No dilation or wall thickening. The appendix is normal. PELVIS/BLADDER: There is circumferential bladder wall thickening. PERITONEUM AND RETROPERITONEUM: No free air or fluid. LYMPH NODES: No lymphadenopathy. VESSELS: Subtle focal haziness and wall thickening at the distal abdominal aortic wall of no known chronicity. BONES AND SOFT TISSUES: No suspicious lytic or sclerotic bony lesions. 1. No CT evidence for acute pancreatitis. 2. Subtle circumferential bladder wall thickening could be artifactual from partially distended lumen or cystitis. 3. Subtle focal haziness and wall thickening at the distal abdominal aortic wall of no known chronicity, could represent age advanced intimal thickening from atherosclerotic disease or less likely vasculitis. Preliminary Report Dictated by Resident: Christopher Hummel I, Gladis Tracy MD., have reviewed this study and agree with the above report. Assessment and plan: Principal Problem: DKA, type 2, not at goal Acute encephalopathy: Suspect metabolic in nature secondary to DKA - Continue to monitor DKA: Secondary to medication noncompliance - Counseled on importance of compliance with medications - Started on aggressive IV fluid hydration - Started on insulin drip - POCT q. hourly - BMP every 3 hours - Follow-up with criminal justice social worker regarding home environment as patient is stating his parents are preventing him from taking his medication Back cellulitis with small abscess already draining: - Start IV antibiotics - Trend few white blood cell count Hyperlipidemia: - Continue statin Hypertension: - Continue losartan DVT prophylaxis: Heparin Advanced Care Planning ( Z71.89 ) Above assessment and plan discussed at length with patient, patient expressed full understanding. Questions and concerns addressed I spent 1 minutes discussing the advance care planning. Advanced Directive Maker: Patient Level of comfort: N/A Code Status: Full code [facility] was verified Disposition: Admit ICU for DKA with acute encephalopathy Critical care statement: I have spent 40 minutes of my undivided time on this patient regarding the following critical care diagnosis: DKA requiring insulin drip management of critical labs [facility] 2023-08-12 12:26:13 Medicine History & Physical Date of Service: 08/12/2023 Pt presents from: Home CC: Acute encephalopathy History of Present Illness: Colin Burns is a 42 year old male with past md hx of diabetes mellitus, hypertension, hyperlipidemia that presents to the ED for acute encephalopathy. Per medical record patient was recently discharged after being admitted for DKA. On that admission he stated he did not feel comfortable taking injection medications and has been sent home on glipizide with Victor Manuel due to his inability to afford his other medication and poor tolerance of metformin. This therapy had been tolerated while here at the hospital. Per record as patient cannot give history would appear that he was at home and his family found him altered and brought him to the hospital for evaluation. In the emergency department he was noted to be tachycardic tachypneic and hypothermic with initial temperature of 93 degrees. Initial labs show an elevated white blood cell count of 26,000 with an MCV of 106.1. Initial chemistry showed elevated potassium 5.6 mmol/L with an elevated blood sugar of 898 mg/dL with an elevated creatinine 2.64 mg/dL with an elevated BUN of 36. He was noted to have normal LFTs but an elevated lipase of 1311. Was noted to have elevated triglyceride of 629 mg/dL. Initial blood gas was 6.8 09/27/1974. UA was positive for ketones. In the emergency department he was given aggressive IV fluid hydration started on insulin drip along with bicarb pushes. Repeat ABG 08/26/1942. Hospitalist called for admission. My exam patient is disoriented and can give no history ROS: Unable to obtain Review of Hx/Meds: PMH: History reviewed. No pertinent past medical history. PSH: has no past surgical history on file. Family Hx: Noncontributory unless mentioned above Social History Tobacco Use Smoking status: Former Types: Cigarettes Passive exposure: Past Smokeless tobacco: Current Tobacco comments: Pt vapes currently Current Scheduled Medications Current IV Current Facility-Administered Medications: D5W 0.45% NaCl (1/2NS) IV infusion 1,000 mL, 1,000 mL, IV Infusion, PRN - SEE INSTRUCTIONS, Benjamin Pires DO enoxaparin (LOVENOX) injection 40 mg, 40 mg, Subcutaneous, DAILY, Benjamin Pires DO insulin regular human (HUMULIN R) 100 Units in NaCl 0.9% (NS) 100 mL infusion, 0-0.3 Units/kg/hr, IV Infusion, TITRATE, Benjamin Pires DO NaCl 0.45% (1/2NS) IV infusion 1,000 mL, 1,000 mL, IV Infusion, CONTINUOUS, Benjamin Pires DO, Last Rate: 250 mL/hr at 08/12/23 1143, 1,000 mL at 08/12/23 1143 Objective: Vitals: Vitals: 08/12/23 1036 08/12/23 1100 08/12/23 1114 08/12/23 1130 BP: 120/71 Pulse: 130 129 131 130 Resp: 25 20 30 Temp: 35.3 ?C (95.6 ?F) 35.4 ?C (95.8 ?F) 35.8 ?C (96.5 ?F) TempSrc: Rectal SpO2: 100% 100% 98% Weight: Height: I/O's: Intake/Output Summary (Last 24 hours) at 08/12/2023 1226 Last data filed at 08/12/2023 1114 Gross per 24 hour Intake 3000 ml Output 800 ml Net 2200 ml Physical Exam: General: NAD, disoriented, lying in bed comfortable, morbid obesity. HEENT: anicteric, oral mucosa dry Neck: supple, no JVD, no bruits. Chest: CTA B/L, no W/R/C. Heart: RRR, S1/S2, no M/G/R Abdominal: BS normoactive, soft, ND, NT. Skin/Extremities: no rash, no cyanosis, warm and dry, no LE edema. Neurological: CN II-XII grossly intact, unable to follow commands moving all 4 extremities though. Labs: BMP:BMP NA (mmol/L) Date Value 08/12/2023 149 (H) 08/12/2023 142 07/29/2023 142 07/28/2023 144 07/27/2023 146 (H) K (mmol/L) Date Value 08/12/2023 4.8 08/12/2023 5.6 (H) 07/29/2023 3.3 (L) 07/28/2023 3.8 07/27/2023 3.5 CALCIUM (mg/dL) Date Value 08/12/2023 7.6 (L) 08/12/2023 8.3 (L) 07/29/2023 9.1 07/28/2023 9.1 07/27/2023 8.7 CL (mmol/L) Date Value 08/12/2023 110 (H) 08/12/2023 101 07/29/2023 109 (H) 07/28/2023 117 (H) 07/27/2023 119 (H) BUN (mg/dL) Date Value 08/12/2023 36 (H) 08/12/2023 36 (H) 07/29/2023 16 07/28/2023 18 07/27/2023 15 CREATININE (mg/dL) Date Value 08/12/2023 2.04 (H) 08/12/2023 2.64 (H) 07/29/2023 0.58 (L) 07/28/2023 0.71 07/27/2023 0.62 GLUCOSE (mg/dL) Date Value 08/12/2023 629 (HH) 08/12/2023 898 (HH) 07/29/2023 152 (H) 07/28/2023 180 (H) 07/27/2023 166 (H) CO2 TOTAL (mmol/L) Date Value 08/12/2023 <5 (L) 08/12/2023 <5 (L) 07/29/2023 23 07/28/2023 16 (L) 07/27/2023 19 (L) CBC:CBC WBC (10*3/?L) Date Value 08/12/2023 26.19 (H) RBC (10*6/?L) Date Value 08/12/2023 4.26 PLT (10*3/?L) Date Value 08/12/2023 283 HGB (g/dL) Date Value 08/12/2023 13.6 HCT (%) Date Value 08/12/2023 45.2 BMP:Hepatic Function Panel ALBUMIN (g/dL) Date Value 08/12/2023 4.4 T PROTEIN (g/dL) Date Value 08/12/2023 7.4 TOTAL BILI (mg/dL) Date Value 08/12/2023 0.6 BILI UNCON (mg/dL) Date Value 04/21/2023 0.6 BILI CONJ (mg/dL) Date Value 04/21/2023 0.0 ALTv (U/L) Date Value 08/12/2023 14 AST(SGOT) (U/L) Date Value 08/12/2023 16 ALK PHOS (U/L) Date Value 08/12/2023 81 Troponin: Recent Labs 08/12/23 0844 TROPNI 0.005 I have reviewed all relevant labs Imaging: CT ABDOMEN PELVIS W CONTRAST Result Date: 07/27/2023 EXAM: CT ABDOMEN/PELVIS WITH CONTRAST HISTORY: Abdominal pain, acute, nonlocalized Evaluate for acute pancreatitis . Lipase 168. COMPARISON: None TECHNIQUE AND FINDINGS: Contiguous axial imaging from the level of the lung bases through the proximal thighs was performed after the administration of intravenous contrast. Coronal and sagittal reconstructions were obtained. FINDINGS: LOWER THORAX: The lungs bases are clear. No cardiomegaly. LIVER: No focal hepatic lesions. Normal size and contour. GALLBLADDER AND BILIARY TREE: No biliary ductal dilation. No gallbladder wall thickening. SPLEEN: No splenomegaly. PANCREAS: Normal parenchymal enhancement. No peripancreatic edema. No ductal dilation or masses. ADRENAL GLANDS: No adrenal nodules. KIDNEYS: Bilateral symmetrical enhancement. No hydronephrosis, stones, or masses. GI TRACT: No dilation or wall thickening. The appendix is normal. PELVIS/BLADDER: There is circumferential bladder wall thickening. PERITONEUM AND RETROPERITONEUM: No free air or fluid. LYMPH NODES: No lymphadenopathy. VESSELS: Subtle focal haziness and wall thickening at the distal abdominal aortic wall of no known chronicity. BONES AND SOFT TISSUES: No suspicious lytic or sclerotic bony lesions. 1. No CT evidence for acute pancreatitis. 2. Subtle circumferential bladder wall thickening could be artifactual from partially distended lumen or cystitis. 3. Subtle focal haziness and wall thickening at the distal abdominal aortic wall of no known chronicity, could represent age advanced intimal thickening from atherosclerotic disease or less likely vasculitis. Preliminary Report Dictated by Resident: Christopher Hummel I, Gladis Tracy MD., have reviewed this study and agree with the above report. Assessment and plan: Principal Problem: Altered mental status, unspecified altered mental status type Active Problems: Morbid obesity with body mass index of 40.0-49.9 Acute encephalopathy: Suspect secondary to metabolic process, noted moving all 4 extremities - Follow-up tox screen - Mentation does not improve with resolution of DKA we will follow-up with stat CT of head DKA: - Continue insulin drip - Continue aggressive IV fluid hydration - BMP every 3 hours - POCT hourly Metabolic acidosis::Secondary to DKA - Continue monitor Hypothermia: - Continue Yandel hugger and core temperature monitoring Acute kidney injury: Suspect secondary to prerenal/DKA, improving - Avoid nephrotoxins - Continue aggressive IV fluid hydration - Trend BMP Hyperkalemia: Improving, secondary to metabolic/pH swing - Continue to monitor Leukocytosis: Suspect reactionary to above process will rule out other causes - Follow-up chest x-ray - Trend few white blood cell count - Hold antibiotic therapy until source found Pancreatitis: -Continue aggressive IV fluid hydration - Continue n.p.o. DVT prophylaxis: Lovenox Critical care statement: I have spent 50 minutes of my undivided time on this patient regarding the following critical care diagnosis: DKA, severe metabolic acidosis secondary to DKA, management of critical labs, management of insulin drip [place] [employer] was verified Disposition: Admit ICU [facility] 2023-07-27 06:25:12 [facility] Hospitalist Admission H&P Date of Service: 07/27/2023 CHIEF COMPLAINT: Intractable nausea and vomiting with hyperglycemia HISTORY OF PRESENT ILLNESS Colin Burns is a 42 year old male who presents with diabetic ketoacidosis. Patient with intractable nausea and vomiting. Patient been dealing with a lot of stress. Since he was having persistent nausea and vomiting he did not take his insulin. Patient was found to be in DKA on arrival to the hospital. Patient been on IV fluids and insulin drip. Patient's anion gap is improved. At this time patient will be admitted to the hospital for further treatment of his diabetic ketoacidosis. Continue with insulin drip and IV hydration. Patient is been a diabetic for about 2 years. He states that he has been fairly compliant with taking his insulin unless he is not eating well. He has not had labs done to monitor his sugars in a few months. He does not really check his sugars routinely. Patient states she has had some vision problems because of his poorly controlled diabetes. PAST MEDICAL HISTORY Type 1 diabetes PAST SURGICAL HISTORY History reviewed. No pertinent surgical history. ALLERGIES No Known Allergies MEDICATIONS Current home medication list reviewed: Current Discharge Medication List STOP taking these medications allopurinoL 200 mg Tab Comments: Reason for Stopping: atorvastatin 40 mg tablet Comments: Reason for Stopping: empagliflozin-metformin (SYNJARDY) 12.5-1,000 mg Tab Comments: Reason for Stopping: blood sugar diagnostic (RELION PRIME TEST STRIPS) strip Comments: Reason for Stopping: Blood-Glucose Meter (RELION PRIME METER) Misc Comments: Reason for Stopping: lancets 33 gauge Misc Comments: Reason for Stopping: losartan 50 mg tablet Comments: Reason for Stopping: FAMILY HISTORY No family history on file. SOCIAL HISTORY Social History Socioeconomic History Marital status: Single Highest education level: 12th grade Occupational History Occupation: financial reporting specialist/ scaffle builder Tobacco Use Smoking status: Former Types: Cigarettes Passive exposure: Past Smokeless tobacco: Current Tobacco comments: Pt vapes currently Social Determinants of Health Financial Resource Strain: Low Risk (04/20/2023) Overall Financial Resource Strain (CARDIA) Difficulty of Paying Living Expenses: Not hard at all Food Insecurity: No Food Insecurity (04/20/2023) Hunger Vital Sign Worried About Running Out of Food in the Last Year: Never true Ran Out of Food in the Last Year: Never true Transportation Needs: No Transportation Needs (04/20/2023) PRAPARE - Transportation Lack of Transportation (Medical): No Lack of Transportation (Non-Medical): No Physical Activity: Insufficiently Active (04/20/2023) Exercise Vital Sign Days of Exercise per Week: 4 days Minutes of Exercise per Session: 10 min Social Connections: Unknown (04/20/2023) Social Connection and Isolation Panel [NHANES] Frequency of Communication with Friends and Family: More than three times a week Marital Status: Never Housing Stability: Low Risk (04/20/2023) Housing Stability Vital Sign Unable to Pay for Housing in the Last Year: No Number of Places Lived in the Last Year: 1 Unstable Housing in the Last Year: No REVIEW OF SYSTEMS 10 systems negative except per HPI PHYSICAL EXAMINATION BP 127/76 | Pulse 102 | Temp 36.2 ?C (97.1 ?F) (Temporal Artery) | Resp 16 | Ht 1.727 m (5' 8") | Wt 95.5 kg (210 lb 8 oz) | SpO2 99% | BMI 32.01 kg/m? General: No acute distress HEENT: Normal oral mucosa, anicteric sclerae, NCAT Cardiovascular: RRR Lungs: Symmetric expansion, clear bilaterally Abdomen: Soft, NTND Musculoskeletal: No synovitis, normal muscle mass Genitourinary: Normal Skin: No rash, no skin lesions Extremities: No clubbing, no cyanosis, no lower extremity edema Neuro: AAOx3, no focal deficits Psych: Normal affect LABS - reviewed pertinent labs as below: CBC BMP PT/INR WBC (10*3/?L) Date Value 07/27/2023 12.90 (H) NA (mmol/L) Date Value 07/27/2023 153 (H) No results found for: "PT" RBC (10*6/?L) Date Value 07/27/2023 5.48 K (mmol/L) Date Value 07/27/2023 4.6 No results found for: "PTINR" PLT (10*3/?L) Date Value 07/27/2023 285 CALCIUM (mg/dL) Date Value 07/27/2023 9.3 HGB (g/dL) Date Value 07/27/2023 16.8 (H) CL (mmol/L) Date Value 07/27/2023 116 (H) aPTT HCT (%) Date Value 07/27/2023 52.6 (H) BUN (mg/dL) Date Value 07/27/2023 24 (H) No results found for: "APTTPAT" CREATININE (mg/dL) Date Value 07/27/2023 1.40 (H) IMAGING - reviewed, pertinent results as below: Hospital Encounter on 07/27/23 CT ABDOMEN PELVIS W CONTRAST Narrative EXAM: CT ABDOMEN/PELVIS WITH CONTRAST HISTORY: Abdominal pain, acute, nonlocalized Evaluate for acute pancreatitis . Lipase 168. COMPARISON: None TECHNIQUE AND FINDINGS: Contiguous axial imaging from the level of the lung bases through the proximal thighs was performed after the administration of intravenous contrast. Coronal and sagittal reconstructions were obtained. FINDINGS: LOWER THORAX: The lungs bases are clear. No cardiomegaly. LIVER: No focal hepatic lesions. Normal contour. GALLBLADDER AND BILIARY TREE: No biliary ductal dilation. No gallbladder wall thickening. SPLEEN: No splenomegaly. PANCREAS: No ductal dilation or masses. ADRENAL GLANDS: No adrenal nodules. KIDNEYS: Bilateral symmetrical enhancement. No hydronephrosis, stones, or masses. GI TRACT: No dilation or wall thickening. The appendix is normal. PELVIS/BLADDER: There is circumferential bladder wall thickening. PERITONEUM AND RETROPERITONEUM: No free air or fluid. LYMPH NODES: No lymphadenopathy. VESSELS: Unremarkable. BONES AND SOFT TISSUES: No suspicious lytic or sclerotic bony lesions. Impression 1. No CT evidence for acute pancreatitis. 2. Circumferential bladder wall thickening could be seen with cystitis. Preliminary Report Dictated by Resident: Christopher Hummel ASSESSMENT: 1. DKA 2. Intractable nausea and vomiting PLAN: 1. DKA with intractable nausea and vomiting; continue with aggressive IV hydration. DKA protocol followed. A1c was greater than 11. Patient's had pancreatitis in the past but his lipase was 168. Continuing with insulin drip and IV hydration. Patient also with hyponatremia so after we hydrate him appropriately will switch his IV fluids to D5 water. Continue monitoring his labs every 3 hours as scheduled per DKA protocol. Patient will be admitted to the intensive care unit. DVT prophylaxis: enoxaparin Stress ulcer prophylaxis: pantoprazole Code status: FULL Advanced Care Planning (Z71.89) Above assessment and plan discussed at length with patient, patient expressed full understanding. Questions and concerned addressed. Surrogate decision maker: NO Level of care expected after discharge: HOME Time spent: 3 minutes discussing the advanced care plan Smoking Cessation: (Z71.6) Tobacco user?: NO Patient will require inpatient stay of 2 midnights or more given high risk of morbidity and mortality. [place] [employer] MAKER FORMULATOR was verified during stay Michelle Crump MD IM-INTERNAL MEDICINE STAFF [facility] 2023-04-19 23:26:21 MEDICINE [facility] ADMIT H&P Date of Service: 04/20/2023 CHIEF COMPLAINT: Abdominal pain Subjective History of Present Illness 42 yo male with pmh of gout, HLD, DM, HTN, pancreatitis (within 1 year) who presents as a direct admit after presenting to an OSH due to abdominal pain. This weekend, he had binged drink which was not something he does on a regular. However, binging drinking had incited the previous pancreatitis episode. Shortly after, he had epigastric abdominal pain with associated nausea, vomiting, oral intake. He did note one bout of hematemesis. No fever, chill, or diarrhea. Went to free standing ER and was found to have acute pancreatitis and was sent here. PAST MEDICAL HISTORY DM HTN HLD gout Past Surgical History None reported Past Family History Noncontributory ALLERGIES No Known Allergies MEDICATIONS No current facility-administered medications on file prior to encounter. Current Outpatient Medications on File Prior to Encounter Medication Sig Dispense Refill allopurinoL 200 mg Tab Take 100 mg by mouth in the morning. atorvastatin 40 mg tablet Take 1 tablet by mouth at bedtime. empagliflozin-metformin (SYNJARDY) 12.5-1,000 mg Tab Take 1 tablet by mouth in the morning. blood sugar diagnostic (RELION PRIME TEST STRIPS) strip Use as directed 200 Each 3 Blood-Glucose Meter (RELION PRIME METER) Misc Use as directed 1 Each 0 lancets 33 gauge Misc Use as directed 100 Each 0 losartan 50 mg tablet Take 1 tablet by mouth in the morning. I attest that the foregoing medication list in the medical record is true, accurate and complete to the best of my knowledge. SOCIAL HISTORY Social History Socioeconomic History Marital status: Single Highest education level: 12th grade Occupational History Occupation: financial reporting specialist/ scaffle builder Tobacco Use Smoking status: Former Types: Cigarettes Smokeless tobacco: Current Tobacco comments: Pt vapes currently Social Determinants of Health Financial Resource Strain: Low Risk (07/06/2022) Overall Financial Resource Strain (CARDIA) Difficulty of Paying Living Expenses: Not hard at all Food Insecurity: No Food Insecurity (07/06/2022) Hunger Vital Sign Worried About Running Out of Food in the Last Year: Never true Ran Out of Food in the Last Year: Never true Transportation Needs: No Transportation Needs (07/06/2022) PRAPARE - Transportation Lack of Transportation (Medical): No Lack of Transportation (Non-Medical): No Physical Activity: Inactive (07/06/2022) Exercise Vital Sign Days of Exercise per Week: 0 days Minutes of Exercise per Session: 0 min Social Connections: Unknown (07/06/2022) Social Connection and Isolation Panel [NHANES] Frequency of Communication with Friends and Family: More than three times a week Marital Status: Never Housing Stability: High Risk (07/06/2022) Housing Stability Vital Sign Unable to Pay for Housing in the Last Year: Yes Number of Places Lived in the Last Year: 1 Unstable Housing in the Last Year: No REVIEW OF SYSTEMS Review of Systems Constitutional: Positive for appetite change (decreased). Negative for activity change, chills, diaphoresis, fatigue, fever and unexpected weight change. HENT: Negative. Eyes: Negative. Respiratory: Negative. Breasts: Negative. Cardiovascular: Negative. Gastrointestinal: Positive for abdominal pain, nausea and vomiting. Negative for abdominal distention, anal bleeding, blood in stool, constipation, diarrhea and rectal pain. Genitourinary: Negative. Musculoskeletal: Negative. Skin: Negative. Neurological: Negative. Psychiatric/Behavioral: Negative. Endocrine: Endocrine negative Objective Vitals: 04/19/23204104/19/23205204/19/23 2257 BP: (!) 198/133 (!) 145/91 Pulse: 82 71 Resp: 18 18 Temp: 36.5 ?C (97.7 ?F) 36.5 ?C (97.7 ?F) SpO2: 95% 98% Weight: 115 kg (253 lb 8 oz) Height: 1.727 m (5' 8") Physical Exam Vitals and nursing note reviewed. Constitutional: General: He is not in acute distress. Appearance: Normal appearance. He is not ill-appearing, toxic-appearing or diaphoretic. HENT: Head: Normocephalic and atraumatic. Right Ear: External ear normal. Left Ear: External ear normal. Nose: Nose normal. No congestion. Mouth/Throat: Mouth: Mucous membranes are moist. Pharynx: No oropharyngeal exudate or posterior oropharyngeal erythema. Eyes: General: No scleral icterus. Extraocular Movements: Extraocular movements intact. Pupils: Pupils are equal, round, and reactive to light. Cardiovascular: Rate and Rhythm: Normal rate and regular rhythm. Heart sounds: No murmur heard. No friction rub. No gallop. Pulmonary: Effort: Pulmonary effort is normal. No respiratory distress. Breath sounds: Normal breath sounds. No wheezing or rales. Chest: Chest wall: No tenderness. Abdominal: General: Abdomen is flat. Bowel sounds are normal. There is no distension. Palpations: Abdomen is soft. Tenderness: There is abdominal tenderness. There is no guarding. Musculoskeletal: General: Normal range of motion. Cervical back: Normal range of motion and neck supple. Right lower leg: No edema. Left lower leg: No edema. Neurological: Mental Status: He is alert. Psychiatric: Mood and Affect: Mood normal. Behavior: Behavior normal. Thought Content: Thought content normal. Judgment: Judgment normal. LABS/IMAGING OSH CT Abd/Pelvis: Acute interstitial pancreatitis. Hepatomegaly and hepatic steatosis. Fat stranding around the gallbladder potentially reactive. No radiopaque stones. No biliary dilatation. EKG: sinus rhythm Assessment & Plan Colin Burns is a 42 year old male with PMH as listed above, admitted to the hospital with: 1. Acute pancreatitis: alcohol induced -- NPO -- IV fluid hydration -- Nausea/pain control -- AM lipid panel 2. DM: -- will start insulin sliding scale 3. HTN: uncontrolled -- will order for IV hydralazine as needed 4. HLD: -- Will check AM lipid agent 5. Gout: -- Will resume allopurinol Prophylaxis: DVT- enoxaparin Code Status: Full Code T [facility]
[2024-02-12] MEDS ORDERED: ONDANSETRON 4 MG/2 ML VIAL ONE (20:14)
[2024-02-12] MEDS ORDERED: FENTANYL CITR 100 MCG/2 ML ONE (20:14)
[2024-02-12] MEDS ORDERED: NA CHLORIDE 0.9% 2,000 ML ONE (20:16)
[2024-02-12 20:33] LABS: Absolute Basophils 0.1 K/uL (0-0.5); Absolute Lymphocytes (CBC) 1.6 K/uL (0.7-4.9); Absolute Monocytes 1.3 K/uL (0.1-1.3); Absolute Neutrophil 15.5 K/uL (1.8-8.0); Basophils % 0.4 % (0-1.3); Eosinophils % 0.1 % (0-4.4); Hematocrit 51.1 % (39.6-49.0); Hemoglobin 16.8 g/dL (13.6-17.9); Lymphocytes % 8.7 % (15.3-44.8); MCH 31.2 pg (27.0-35.0); MCHC 32.8 g/dL (32.0-36.0); MCV 94.9 fL (80-100); MPV 10.6 fL (7.6-11.3); Monocytes % 6.9 % (3.3-12.3); Neutrophils % 83.9 % (41.7-73.7); Platelets 373 thou/uL (152-406); RBC Red Blood Cell Count 5.39 M/uL (4.33-5.43); Red Cell Distribution Width 13.9 % (12.1-15.2)
--- NOTE | 2024-02-12 20:35 | RAD REPORT ---
EXAMINATION: ONE VIEW CHEST XR CLINICAL INDICATION: DYSPNEA TECHNIQUE: Frontal chest projection is submitted. Examination is limited by patient positioning and t echnique. COMPARISON: No prior exam. FINDINGS: The lungs are well inflated and clear. The heart is upper limit of normal in size. No displaced fract ures identified. IMPRESSION: No acute intrathoracic abnormalities.
[2024-02-12 20:43] LABS: Protime INR 0.98
[2024-02-12 20:53] LABS: ALT/SGPT 25 U/L (16-61); Albumin/Globulin Ratio 0.7 (1.1-1.8); Alkaline Phosphatase 75 U/L (45-117); Anion Gap 27.8 mEq/L (5.0-15.0); BUN Blood Urea Nitrogen 30 mg/dL (7-18); Bilirubin Total 0.7 mg/dL (0.2-1.0); Glomerular Filtration Rate 51 ml/min (=/>90); Glucose Level 255 mg/dL (74-106); Potassium 4.8 mEq/L (3.5-5.1); Sodium Level 139 mEq/L (136-145)
[2024-02-12 20:55] LABS: AST/SGOT < 10 U/L (15-37); Troponin High Sensitivity < 3.0 pg/mL (<58.9)
[2024-02-12 20:57] LABS: Bicarbonate 8 mEq/L (21-32)
--- NOTE | 2024-02-12 21:53 | RAD REPORT ---
EXAM: CT brain without contrast HISTORY: ABSCESS, POSTERIOR SKULL;Headache COMPARISON: None TECHNIQUE: Multiple contiguous axial images were obtained and a CT of the brain without contrast. Sag ittal and coronal reformats were performed. One or more of the following dose reduction techniques were used: Automated exposure control, adjust ment of the mA and/or kV according to patient size, and/or iterative reconstruction. FINDINGS: No evidence of hydrocephalus, intracranial hemorrhage, or extra-axial fluid collection. The brain is normal in morphology. No evidence of midline shift or areas of brain edema. The calvarium is intact. The visualized paranasal sinuses and mastoid air cells are essentially clear . 23 mm focus of subcutaneous inflammation seen posterior scalp soft tissues. No drainable fluid collection in the region. IMPRESSION: No evidence of acute intracranial abnormality.
--- NOTE | 2024-02-12 22:07 | RAD REPORT ---
EXAMINATION: CT ABDOMEN AND PELVIS WITHOUT CONTRAST CLINICAL INDICATION: ABD PAIN TECHNIQUE: CT abdomen and pelvis was performed, without IV contrast, as per department protocol. Axia l, sagittal and coronal reconstructions were obtained. One or more of the following dose reduction techniques were used: Automated exposure control, adjustment of the mA and kV according to the patien t size, and iterative reconstruction. Unless otherwise specified, incidental findings do not require dedicated imaging follow-up. COMPARISON: No prior exam. FINDINGS: The lack of intravenous contrast limits the sensitivity of this exam for evaluation of solid visceral organs, vascular structures, and retroperitoneum. LOWER CHEST: The visualized lung bases are clear. LIVER:Normal in size and contour. No focal lesion. Grossly unremarkable gallbladder. SPLEEN: Normal size. No focal lesion. PANCREAS: No mass, ductal dilation, or helio-pancreatic fluid. ADRENALS: Normal; no mass. KIDNEYS AND URETERS: Normal size and contour. No hydronephrosis. URINARY BLADDER: Normal contour. GASTROINTESTINAL TRACT: No evidence of bowel obstruction, significant free fluid, free air or abscess . APPENDIX: Normal appendix. LYMPH NODES: No lymphadenopathy. MUSCULOSKELETAL: No acute or suspicious osseous abnormality. ADDITIONAL FINDINGS: None. IMPRESSION: No acute or concerning abnormalities in the abdomen or pelvis, with evaluation limited by lack of IV contrast.
[2024-02-12 22:22] LABS: SARS-CoV-2 Antigen CONTROL BLUE LINE VIS/BG OK; SARS-CoV-2 Antigen Rapid Res Negative (Negative)
[2024-02-12] MEDS ORDERED: VANCOMYCIN 1 GM/VIAL ONE (22:37)
[2024-02-12] MEDS ORDERED: NA CHLORIDE 0.9% 100 ML ONE (22:38)
[2024-02-12] MEDS ORDERED: NA CHLORIDE 0.9% 250 ML ONE (22:38)
[2024-02-12] MEDS ORDERED: CEFEPIME 1 GM/VIAL ONE (22:38)
[2024-02-12] MEDS ORDERED: D5 0.9 NS 1,000 ML IV ONE (22:39)
--- NOTE | 2024-02-12 22:56 | ER ---
Nurse's Notes [facility] Name: Colin Burns Age: 43 yrs Sex: Male : 1980 Arrival Date: 02/12/2024 Time: 19:38 Bed 15 Private MD: Diagnosis: Diabetes mellitus due to underlying condition with ketoacidosis without coma;Cellulitis of the posterior scalp Presentation: 02/11 19:43 Chief complaint: Patient states: shortness of breath, weakness, fever, possible cyst on ha1 the back of head. 20:10 Coronavirus screen: Client denies travel out of the [place] in the last 14 days. Ebola kj2 Screen: No symptoms or risks identified at this time. Initial Sepsis Screen: Does the patient meet any 2 criteria? RR > 20 per min. HR > 90 bpm. Does the patient have a suspected source of infection? No. Patient's initial sepsis screen is negative. Risk Assessment: Do you want to hurt yourself or someone else? Patient reports no desire to harm self or others. Onset of symptoms was February 12, 2024. 20:10 Method Of Arrival: Ambulatory kj2 20:16 Acuity: RUFINO 2 ha1 Triage Assessment: 21:00 Respiratory: Reports shortness of breath at rest Onset: The symptoms/episode kj2 began/occurred today, Historical: - Allergies: 20:08 No Known Allergies; kj2 - PMHx: 20:14 Diabetes mellitus; ha1 - Immunization history:: Adult Immunizations up to date. - Infectious Disease History:: Denies. - Social history:: Smoking status: unknown. Screenin:15 [facility] ED Fall Risk Assessment (Adult) History of falling in the last 3 months, ha1 including since admission No falls in past 3 months (0 pts) Confusion or Disorientation No (0 pts) Intoxicated or Sedated No (0 pts) Impaired Gait Yes (1 pt) Mobility Assist Device Used Yes (1 pt) Altered Elimination No (0 pt) Score/Fall Risk Level 3 or more points = High Risk Oriented to surroundings, Maintained a safe environment, Educated pt \T\ family on fall prevention, incl call for assistance when getting out of bed, Hourly rounding (assess needs \T\ fall precautionary measures) done. Abuse screen: Denies threats or abuse. Denies injuries from another. Nutritional screening: No deficits noted. Tuberculosis screening: No symptoms or risk factors identified. Assessment: 20:10 General: Appears in no apparent distress. uncomfortable, Behavior is cooperative. Pain: kj2 Complains of pain in scalp and left upper quadrant and right upper quadrant and epigastric area Pain currently is 8 out of 10 on a pain scale. Neuro: Level of Consciousness is awake, alert, obeys commands, Oriented to person, place, time, situation. Respiratory: Airway is patent Breath sounds are clear. 20:16 Cardiovascular: Reports shortness of breath, Capillary refill < 3 seconds Patient's ha1 skin is warm and dry. Respiratory: Airway is patent Respiratory effort is even, unlabored. 21:02 Reassessment: Patient appears in no apparent distress at this time. Patient and/or kj2 family updated on plan of care and expected duration. Pain level reassessed. Patient is alert, oriented x 3, equal unlabored respirations, skin warm/dry/pink. 22:00 Reassessment: Patient appears in no apparent distress at this time. Patient and/or kj2 family updated on plan of care and expected duration. Pain level reassessed. Patient is alert, oriented x 3, equal unlabored respirations, skin warm/dry/pink. 23:00 Reassessment: Patient appears in no apparent distress at this time. Patient and/or kj2 family updated on plan of care and expected duration. Pain level reassessed. Patient is alert, oriented x 3, equal unlabored respirations, skin warm/dry/pink. 02/12 00:00 Reassessment: Patient appears in no apparent distress at this time. Patient and/or kj2 family updated on plan of care and expected duration. Pain level reassessed. Patient is alert, oriented x 3, equal unlabored respirations, skin warm/dry/pink. 01:14 Reassessment: Patient appears in no apparent distress at this time. Patient and/or kj2 family updated on plan of care and expected duration. Pain level reassessed. Patient is alert, oriented x 3, equal unlabored respirations, skin warm/dry/pink. 01:37 Reassessment: report given to MELONY Murillo in ICU. kj2 Vital Signs: 02/11 20:07 BP 161 / 101; Pulse 131; Resp 23 S; Temp 98.9(T); Pulse Ox 100% ; Weight 113.4 kg; ha1 Height 5 ft. 8 in. ; 21:01 BP 158 / 115; Pulse 115; Resp 18; Pulse Ox 100% on R/A; kj2 22:00 BP 156 / 98; Pulse 115; Resp 20; Pulse Ox 98% on R/A; kj2 23:00 BP 149 / 78; Pulse 106; Resp 20; Pulse Ox 100% on R/A; kj2 02/12 00:00 BP 135 / 76; Pulse 114; Resp 18; Pulse Ox 98% ; kj2 01:13 BP 163 / 89; Pulse 108; Resp 18; Pulse Ox 99% on R/A; kj2 02/11 20:07 Body Mass Index 38.01 (113.40 kg, 172.72 cm) [facility] ED Course: 02/11 19:42 Patient arrived in ED. vk 19:47 Andie Corona FNP is PHCP. [facility] 19:47 Atul Castorena MD is Attending Physician. [facility] 20:05 Sandra Pantoja, MELONY is Primary Nurse. 2 20:10 Arm band placed on Patient placed in an exam room, on a stretcher. EKG completed in 2 triage. Results shown to MD. 20:10 Patient has correct armband on for positive identification. Call light in reach. Adult kj2 w/ patient. Provided Education on: call light. 20:16 Triage completed. [facility] 20:17 Initial lab(s) drawn, by me, sent to lab. First set of blood cultures drawn by me, vk Second set of blood cultures drawn by me, EKG done, by ED staff. 20:24 CBC with Diff Sent. vk 20:24 CMP Sent. vk 20:24 Lactate w/ 2H reflex if indic. Sent. vk 20:24 Protime (+inr) Sent. vk 20:24 Ptt, Activated Sent. vk 20:24 Urinalysis w/ reflexes Sent. vk 20:24 Troponin High Sensitivity Sent. vk 20:24 Blood Culture Adult (2) Sent. vk 20:24 Inserted saline lock: 20 gauge in right antecubital area, using aseptic technique. vk Blood collected. Flushed with 10 mL NS. 20:27 Chest Single View XRAY In Process Unspecified. EDMS 21:01 No provider procedures requiring assistance completed. kj2 21:44 Head Brain Wo Cont In Process Unspecified. EDMS 21:49 CT Abd/Pelvis - Without Contrast In Process Unspecified. EDMS 22:54 Prince Tripathi MD is Hospitalizing Provider. jh7 02/12 02:11 Patient admitted, IV remains in place. kj2 Administered Medications: 02/11 20:28 Drug: Ondansetron IVP 4 mg IVP once; over 2 minutes Route: IVP; Site: right antecubital;kj2 21:12 Follow up: Response: No adverse reaction kj2 20:29 Drug: NS 0.9% IV (30 ml/kg) 30 ml/kg IV at bolus once; Sepsis Protocol; to be given as kj2 a bolus over 90 minutes Route: IV; Rate: bolus; Site: right antecubital; 20:29 Drug: fentaNYL (PF) IVP 50 mcg IVP once Route: IVP; Site: right antecubital; kj2 21:12 Follow up: Response: No adverse reaction kj2 23:17 Drug: D5-NS IV 1000 ml IV at 125 ml/hr continuous Route: IV; Rate: 125 ml/hr; Site: kj right antecubital; 02/12 02:12 Follow up: IV Status: Infusion continued upon admission kj2 02/11 23:18 Drug: Cefepime IVPB 1 grams IVPB at 200 ml/hr once over 30 mins; (mix in NS 100 mL) kj2 Route: IVPB; Rate: 200 ml/hr; Infused Over: 30 mins; Site: right antecubital; 23:48 Follow up: IV Status: Completed infusion; IV Intake: 100ml kj2 02/12 01:06 Drug: Insulin Drip - (Insulin Regular Human IVP 100 units, NS 0.9% IV 100 ml) IV at kj2 calculated rate continuous; Standard concentration 1unit/ml; Dose for DKA is 0.1 units/kg/hr {Co-Signature: cp4 (Martha Valdez).} Route: IV; Rate: calculated rate; Site: right antecubital; 02:12 Follow up: IV Status: Infusion continued upon admission kj2 01:22 Drug: vancoMYCIN IVPB 1 grams IVPB once over 2 hrs Route: IVPB; Infused Over: 2 hrs; kj2 Site: right antecubital; 02:12 Follow up: IV Status: Infusion continued upon admission kj2 Medication: 02/11 20:58 VIS not applicable for this client. 2 Intake: 23:48 IV: 100ml; Total: 100ml. 2 Outcome: 22:56 Decision to Hospitalize by Provider. jh7 02/12 01:13 Discharged to [facility] 02:11 Condition: stable kj2 02:11 Instructed on the need for admit, 02:13 Patient left the ED. [facility] Signatures: Dispatcher [employer] EDMS Andie Corona FNP FNP 7 Marissa Beavers, RN RN ha1 Samantha Mejia Krystal, MELONY RN kj2 Martha Valdez cp4 Corrections: (The following items were deleted from the chart) 02/11 20:15 20:07 113.4 kg; Height 5 ft. 8 in.; BMI: 38.0; 2 1
--- NOTE | 2024-02-12 22:56 | EDPHYS ---
Physician Documentation [facility] Name: Colin Burns Age: 43 yrs Sex: Male : 1980 Arrival Date: 02/12/2024 Time: 19:38 Bed 15 Private MD: ED Physician Atul Castorena HPI: 02/11 20:08 This 43 yrs old Male presents to ER via Unassigned with complaints of [facility] Breathing Difficulty. 20:33 43-year-old male with a past medical history of hypertension and diabetes presents to [facility] the ER for generalized weakness, abscess on the back of the head, shortness of breath, and upper abdominal pain for the past 3 days. Patient also reports subjective fever. He reports his last bowel movement was at least 3 days ago.. Historical: - Allergies: 20:08 No Known Allergies; kj2 - PMHx: 20:14 Diabetes mellitus; ha1 - Immunization history:: Adult Immunizations up to date. - Infectious Disease History:: Denies. - Social history:: Smoking status: unknown. ROS: 20:08 Constitutional: Per HPI 7 Exam: 20:08 Head/Face: Normocephalic, atraumatic. Eyes: Pupils equal round and reactive to light, [facility] extra-ocular motions intact. Lids and lashes normal. Conjunctiva and sclera are non-icteric and not injected. Cornea within normal limits. Periorbital areas with no swelling, redness, or edema. Neck: Trachea midline, no thyromegaly or masses palpated, and no cervical lymphadenopathy. Supple, full range of motion without nuchal rigidity, or vertebral point tenderness. No Meningismus. Cardiovascular: Regular rate and rhythm with a normal S1 and S2. No gallops, murmurs, or rubs. Normal PMI, no JVD. No pulse deficits. Back: No spinal tenderness. No costovertebral tenderness. Full range of motion. MS/ Extremity: Pulses equal, no cyanosis. Neurovascular intact. Full, normal range of motion. Neuro: Awake and alert, GCS 15, oriented to person, place, time, and situation. Cranial nerves II-XII grossly intact. Motor strength 5/5 in all extremities. Sensory grossly intact. Cerebellar exam normal. Normal gait. 20:08 Constitutional: The patient appears alert, awake, obviously ill, 20:08 Respiratory: mild respiratory distress is noted, Respirations: labored breathing, that is mild, tachypnea, that is mild, Breath sounds: are clear throughout, Respiratory rate: 25 20:08 Abdomen/GI: Inspection: abdomen appears normal, Bowel sounds: normal, Palpation: soft, mild abdominal tenderness, in the epigastric area, right upper quadrant and left upper quadrant, 20:08 Skin: abscess, that is moderate sized, of the scalp, with induration, Vital Signs: 20:07 BP 161 / 101; Pulse 131; Resp 23 S; Temp 98.9(T); Pulse Ox 100% ; Weight 113.4 kg; ha1 Height 5 ft. 8 in. ; 21:01 BP 158 / 115; Pulse 115; Resp 18; Pulse Ox 100% on R/A; kj2 22:00 BP 156 / 98; Pulse 115; Resp 20; Pulse Ox 98% on R/A; kj2 23:00 BP 149 / 78; Pulse 106; Resp 20; Pulse Ox 100% on R/A; kj2 02/12 00:00 BP 135 / 76; Pulse 114; Resp 18; Pulse Ox 98% ; kj2 01:13 BP 163 / 89; Pulse 108; Resp 18; Pulse Ox 99% on R/A; kj2 02/11 20:07 Body Mass Index 38.01 (113.40 kg, 172.72 cm) [facility] MDM: 02/11 19:47 Medical Screening Exam initiated jh7 22:45 Differential diagnosis: pneumonia, Sepsis DKA, cellulitis, abscess. Antibiotic [facility] administration: Cefepime + vancomycin. Data interpreted: Pulse oximetry: is 100 %. Interpretation: normal. Data reviewed: vital signs, nurses notes, lab test result(s), EKG, radiologic studies, CT scan, plain films. Consideration of Admission/Observation Patient was admitted/placed on observation. Management of patient was discussed with the following: Hospitalist: Dr. Tripathi. I considered the following discharge prescriptions or medication management in the emergency department Medications were administered in the Emergency Department. See MAR. Independent interpretation of the following test(s) in the Emergency Department EKG: See my EKG interpretation above X-Ray: My interpretation is no pneumonia. Care significantly affected by the following chronic conditions: Diabetes, Hypertension. Counseling: I had a detailed discussion with the patient and/or guardian regarding the historical points, exam findings, and any diagnostic results supporting the discharge/admit diagnosis, the need for further work-up and treatment in the hospital. Response to treatment: the patient's symptoms have mildly improved after treatment. ED course: Clinical presentation and lab work indicate acute diabetic ketoacidosis with cellulitis of the posterior scalp. CT of the brain showed no localized fluid collection indicating need for drainage. Relayed all pertinent clinical information to the hospitalist who accepted the patient under ICU status. Antibiotics and insulin drip initiated in the ER.. 02/11 19:57 Order name: Blood Culture Adult (2) [facility] 02/11 19:57 Order name: CBC with Diff; Complete Time: 21: [facility] 02/11 19:57 Order name: CMP; Complete Time: 21:04 [facility] 02/11 19:57 Order name: Lactate w/ 2H reflex if indic.; Complete Time: 21:04 [facility] 02/11 19:57 Order name: Protime (+inr); Complete Time: 21:04 [facility] 02/11 19:57 Order name: Ptt, Activated; Complete Time: 21:04 [facility] 02/11 19:57 Order name: Urinalysis w/ reflexes; Complete Time: 23:52 [facility] 02/11 19:57 Order name: Troponin High Sensitivity; Complete Time: 21:04 [facility] 02/11 21:05 Order name: ABG: VBG [facility] 02/11 21:05 Order name: BETA HYDROXYBUTYRATE; Complete Time: 22:08 [facility] 02/11 21:22 Order name: SARS RAPID; Complete Time: 22:24 [facility] 02/11 21:22 Order name: Flu; Complete Time: 22:56 [facility] 02/11 22:24 Order name: Glucose, Ancillary Testing; Complete Time: 22:26 [facility] 02/11 22:26 Order name: Magnesium; Complete Time: 23:52 [facility] 02/11 22:26 Order name: Phosphorus; Complete Time: 23:52 [facility] 02/11 23:31 Order name: Basic Metabolic Panel [facility] 02/11 23:31 Order name: Basic Metabolic Panel [facility] 02/11 23:31 Order name: Basic Metabolic Panel [facility] 02/11 23:31 Order name: Basic Metabolic Panel [facility] 02/11 23:31 Order name: Lipid Profile [facility] 02/11 23:31 Order name: Lipid Profile EDMS 02/12 00:03 Order name: CBC with Automated Diff EDMS 02/12 00:03 Order name: CBC with Automated Diff EDMS 02/12 00:03 Order name: CBC with Automated Diff EDMS 02/12 00:03 Order name: CBC with Automated Diff EDMS 02/12 02:02 Order name: Glucose, Ancillary Testing [facility] 02/11 19:57 Order name: Chest Single View XRAY; Complete Time: 21:04 [facility] 02/11 21:09 Order name: Head Brain Wo Cont; Complete Time: 22:08 [facility] 02/11 21:32 Order name: CT Abd/Pelvis - Without Contrast; Complete Time: 22:08 [facility] 02/11 19:57 Order name: EKG; Complete Time: 19:58 [facility] 02/11 19:57 Order name: Accucheck [facility] 02/11 19:57 Order name: Cardiac monitoring; Complete Time: 20:23 [facility] 02/11 19:57 Order name: EKG - Nurse/Tech; Complete Time: 20:23 [facility] 02/11 19:57 Order name: IV Saline Lock - Large Bore; Complete Time: 20:23 [facility] 02/11 19:57 Order name: Labs collected and sent; Complete Time: 20:23 [facility] 02/11 19:57 Order name: O2 Per Protocol; Complete Time: 20:23 [facility] 02/11 19:57 Order name: O2 Sat Monitoring; Complete Time: 20:23 [facility] 02/11 19:57 Order name: Vital Signs [facility] 02/11 22:29 Order name: Recheck Blood Pressure; Complete Time: 02:12 [facility] EC:49 Rate is 126 beats/min. Rhythm is regular. QRS [place] is Normal. GA interval is normal at [facility] 140 msec. QRS interval is normal at 84 msec. QT interval is normal at 330 msec. No Q waves. T waves are Normal. No ST changes noted. Clinical impression: Sinus tachycardia. Administered Medications: 20:28 Drug: Ondansetron IVP 4 mg IVP once; over 2 minutes Route: IVP; Site: right antecubital;kj2 21:12 Follow up: Response: No adverse reaction kj2 20:29 Drug: NS 0.9% IV (30 ml/kg) 30 ml/kg IV at bolus once; Sepsis Protocol; to be given as kj2 a bolus over 90 minutes Route: IV; Rate: bolus; Site: right antecubital; 20:29 Drug: fentaNYL (PF) IVP 50 mcg IVP once Route: IVP; Site: right antecubital; kj2 21:12 Follow up: Response: No adverse reaction 23:17 Drug: D5-NS IV 1000 ml IV at 125 ml/hr continuous Route: IV; Rate: 125 ml/hr; Site: kj2 right antecubital; 02/12 02:12 Follow up: IV Status: Infusion continued upon admission kj02/11 23:18 Drug: Cefepime IVPB 1 grams IVPB at 200 ml/hr once over 30 mins; (mix in NS 100 mL) kj2 Route: IVPB; Rate: 200 ml/hr; Infused Over: 30 mins; Site: right antecubital; 23:48 Follow up: IV Status: Completed infusion; IV Intake: 100ml 02/12 01:06 Drug: Insulin Drip - (Insulin Regular Human IVP 100 units, NS 0.9% IV 100 ml) IV at kj2 calculated rate continuous; Standard concentration 1unit/ml; Dose for DKA is 0.1 units/kg/hr {Co-Signature: [email or web address] (Martha Valdez).} Route: IV; Rate: calculated rate; Site: right antecubital; 02:12 Follow up: IV Status: Infusion continued upon admission 01:22 Drug: vancoMYCIN IVPB 1 grams IVPB once over 2 hrs Route: IVPB; Infused Over: 2 hrs; kj2 Site: right antecubital; 02:12 Follow up: IV Status: Infusion continued upon admission kj2 Disposition: 18:49 Co-signature as Attending Physician, Atul Castorena MD I agree with the assessment sp4 and plan of care. I reviewed the patient's care provided by the Advanced Practice Provider and agree with the diagnosis and treatment plan. Disposition Summary: 02/12/24 22:56 Hospitalization Ordered Notes: Hospitalization Status: Inpatient Admission [facility] Provider: Prince ruchi Tripathi Location: Intensive Care Unit [facility] Condition: Fair [facility] Problem: new [facility] Symptoms: have worsened [facility] Bed/Room Type: [place] [id number] Room Assignment: 8-(02/13/24 00:22) Diagnosis - Diabetes mellitus due to underlying condition with ketoacidosis without coma 7 - Cellulitis of the posterior scalp [facility] Forms: - Medication Reconciliation Form 7 - SBAR form 7 - Leadership Thank You Letter [facility] Signatures: Dispatcher [employer] Flor Pearce, RN RN cg Andie Corona, WEED INSPECTOR WEED INSPECTOR [facility] Marissa Beavers RN RN ha1 Atul Castorena MD MD sp4 Sandra Pantoja RN RN kj2 Martha Valdez 4 Corrections: (The following items were deleted from the chart) 02/11 20:35 20:33 43-year-old male with a past medical history of hypertension and diabetes [facility] presents to the ER for generalized weakness, abscess on the back of the head, shortness of breath, and upper abdominal pain for the past 3 days. Patient also reports subjective fever.. [facility] 21:09 19:58 Head Brain W Cont+CT.RAD.BRZ ordered. EDMS EDMS 21: 21:22 SARS-COV-2 Antigen Rapid+I.LAB.BRZ ordered. EDMS EDMS : 21:22 Influenza Screen (A \T\ B)+BA.LAB.BRZ ordered. EDMS EDMS 02/12 00:22 02/11 22:56 [facility]
[2024-02-12] MEDS ORDERED: ONDANSETRON 4 MG/2 ML VIAL IV PRN (23:27)
[2024-02-12 23:33] LABS: Magnesium 2.7 mg/dL (1.6-2.4); Phosphorus 5.9 mg/dL (2.5-4.9)
--- NOTE | 2024-02-12 23:34 | P.HP ---
Certification for Inpatient Patient admitted to: Inpatient With expected LOS: >2 Midnights Practitioner: I am a practitioner with admitting privileges, knowledge of patient current condition, hospital course, and medical plan of care. Services: Services provided to patient in accordance with Admission requirements found in Title 42 Section 412.3 of the Code of Federal Regulations Patient History Date of Service: 02/12/24 Reason for admission: dka History of Present Illness: Patient is a 43 year old male with a PMH of diabetes mellitus. He is being admitted for acute DKA. He presented with difficulty breathing, generalized weakness and abscess on the back of his head. Associated sx include subjective fever and upper abdomen pain. He has cellulitis of the posterior scalp. Patient's labs are consistent with DKA. He will be admitted to the ICU for DKA management. VBG shows HCO3 of 8, gap 27.8 and serum ketone > 4.5 Physical Examination - Studies Laboratory Data (last 24 hrs) 02/12/24 02/12/24 02/12/24 20:17 20:17 20:17 WBC 18.40 H Hgb 16.8 Hct 51.1 H Plt Count 373 PT 11.0 INR 0.98 APTT 40.0 H Sodium 139 Potassium 4.8 BUN 30 H Creatinine 1.68 H Glucose 255 H Total Bilirubin 0.7 AST < 10 L ALT 25 Alkaline Phosphatase 75 Microbiology Data (last 24 hrs): 02/12/24 21:55 Nasopharnyx Influenza Type A Antigen Screen - Final 02/12/24 21:55 Nasopharnyx Influenza Type B Antigen Screen - Final Assessment and Plan - Problems (Diagnosis) (1) DKA (diabetic ketoacidosis) Current Visit: Yes Status: Acute (2) Cellulitis of scalp Current Visit: Yes Status: Acute (3) LIVIA (acute kidney injury) Current Visit: Yes Status: Acute (4) Sepsis Current Visit: Yes Status: Acute - Plan Assessment Patient is a 43 year old male beign admitted with: DKA Scalp cellulitis LIVIA Sepsis PLAN: Admit to ICU for DKA management Insulin AND NS infusion BMP q 4 hours and glucose check hourly IV clindamycin for scale cellulitis Follow blood cultures Resume rest of home medications upon reconciliation. - Advance Directives Does patient have a Living Will: No Does patient have a Durable POA for Healthcare: No
[2024-02-12] MEDS: NA CHLORIDE 0.9% 1,000 ML IV SCH (23:45)
[2024-02-12 23:50] LABS: Specific Gravity 1.028 (1.005-1.030); Sqamous Epithelial None Seen /HPF (None Seen); Urine Bacteria None Seen /HPF (<20); Urine Bilirubin NEGATIVE (Negative); Urine Blood Trace (Negative); Urine Clarity Clear (Clear); Urine Color Colorless (Yellow); Urine Crystals Unidentified Few /HPF (None Seen); Urine Culture Reflex Order NOT NEEDED; Urine Glucose 4+ (Over) (Negative); Urine Ketones 4+ (Over) (Negative); Urine Microscopic Reflex YN ORDER UMIC; Urine Mucus Slight /HPF (None Seen); Urine Nitrite NEGATIVE (Negative); Urine Protein 1+ (Negative); Urine RBC <5 /HPF (None Seen); Urine Urobilinogen Normal (Normal); Urine WBC <5 /HPF (<5); Urine pH 5.5 (5.0-7.0)
[2024-02-13] MEDS ORDERED: INSULIN REGULAR (HUMAN) 100 UNIT/ML ONE (00:51)
[2024-02-13] MEDS ORDERED: NA CHLORIDE 0.9% 100 ML ONE (00:52)
[2024-02-13] MEDS: INSULIN REGULAR, HUMAN 100 UNIT in NA CHLORIDE 0.9% 100 ML IV SCH (02:15)
[2024-02-13 02:24] LABS: Blood Gas Oxyhemoglobin 93.8 % (94-97); Blood Gas THB 16.1 g/dl (12-18)
[2024-02-13 02:27] LABS: Arterial Blood Carboxyhemoglob 1.1 % (0-1.5)
[2024-02-13] MEDS ORDERED: GLUCAGON 1 MG/VIAL IM PRN ×2 (03:55→23:35)
[2024-02-13] MEDS ORDERED: D50W 25 GM/50 ML SYRINGE IV PRN ×2 (03:55→23:35)
[2024-02-13] MEDS ORDERED: D10W 125 ML IV PRN (04:02)
[2024-02-13] MEDS: ACETAMINOPHEN 325 MG TABLET PO PRN (05:13)
[2024-02-13] MEDS: D5 0.45 NS 1,000 ML IV SCH (06:14)
[2024-02-13] MEDS: ENOXAPARIN 40 MG/0.4 ML SQ SCH (08:33)
[2024-02-13] MEDS: D5W 1,000 ML with POTASSIUM CL 20 MEQ IV SCH (08:33)
[2024-02-13] MEDS: WATER FOR INJ,STERILE 1,000 ML with NA BICARB 8.4% 100 MEQ IV SCH (08:34)
[2024-02-13 08:48] LABS: Anion Gap 7.1 mEq/L (5.0-15.0); Potassium 4.1 mEq/L (3.5-5.1)
[2024-02-13] MEDS ORDERED: WATER FOR INJ,STERILE 1,000 ML with NA BICARB 8.4% 100 MEQ IV SCH (09:01)
--- NOTE | 2024-02-13 09:07 | P.PN ---
Subjective Date of Service: 02/13/24 Chief Complaint: dka Subjective: Improving Patient said he is feeling better, he has been diabetic and taking Synjardy (empagliflozin/metformin) for over 1 year, he has a similar episode diagnosed with diabetic DKA, euglycemic DKA? August 2023, admitted in [place] for 1 week. He was told to continue same body as long as his blood sugar is not low. Currently he is complaining of pain in the back of his head, no fever or chill, still feel weak and sick but normal no more nausea and vomiting Review of Systems Other: Consitutional; fever(-), chills (-), rigor(-), night sweat(-), unintentional weight loss(-), malaise (+) HEENT; diplopia (-), rhinorrhea (-), epistaxis (-), otorrhea (-), otalgia (-) Respiratory; shortness of breath (-), wheezing (-), cough (-), sputum (-), pleuritic chest pain (-) Cardiovascular; chest pain (-), peripheral edema (-), paroxysmal nocturnal dyspnea (-), orthopnea (-) Gastrointestinal; nausea (-), vomiting (-), abdominal pain (-), diarrhea (-), constipation (-), melena (-), hematochezia (-) Genitourinary; urinary frequency (-), dysuria (-), urgency (-), flank pain (-), gross hematuria (-), incontinence (-) Skin; rash (-), pruritus (-) POWER WASHER; headache (-), paresthesia (-), numbness (-), paralysis (-) Physical Examination - Vital Signs Temperature: 97.8 F Blood Pressure: 122/81 Pulse: 104 Respirations: 16 Pulse Ox (%): 99 - Physical Exam Other Physical/Emotional Findings: - Physical Exam. General: acutely ill looking, in no apparent distress,. HEENT: Normocephalic, atraumatic, nonicteric sclera, nonanemic conjunctive. Neck: 3 cm x 3 cm tender soft tissue mass in the occipital area with purulent discharge, no fluctuance , without JVD or goiter or thyroid mass. Respiratory: Normal breathing effort, clear to auscultation bilaterally, no crackles no wheezing or rhonchi. Cardiovascular: Regular rate and rhythm, S1, S2 normal, no murmur no gallop. Gastrointestinal: Normal bowel sounds, nondistended, nontender, No ascites, , No masses, no hepatosplenomegaly. Extremities : No clubbing, No peripheral edema, full range of motion, no deformity, no muscle atrophy. Integumentary: No rashes, petechia, suspected lesions. Lymphatics: No axilla or cervical lymphadenopathy. Neurology; alert awake oriented x3, no focal neurologic deficit, normal affection . mood and behavior. - Studies Laboratory Data (last 24 hrs) 02/12/24 02/12/24 02/12/24 20:17 20:17 20:17 WBC Hgb Hct Plt Count PT 11.0 INR 0.98 APTT 40.0 H Sodium 139 Potassium 4.8 BUN 30 H Creatinine 1.68 H Glucose 255 H Phosphorus 5.9 H Magnesium 2.7 H Total Bilirubin 0.7 AST < 10 L ALT 25 Alkaline Phosphatase 75 02/12/24 20:17 WBC 18.40 H Hgb 16.8 Hct 51.1 H Plt Count 373 PT INR APTT Sodium Potassium BUN Creatinine Glucose Phosphorus Magnesium Total Bilirubin AST ALT Alkaline Phosphatase Microbiology Data (last 24 hrs): 02/12/24 21:55 Nasopharnyx Influenza Type A Antigen Screen - Final 02/12/24 21:55 Nasopharnyx Influenza Type B Antigen Screen - Final Assessment And Plan - Plan Patient is a 43 year old male with a PMH of morbid obesity, hypertension, diabetes mellitus on Synjardy (empagliflozin plus metformin), suspected euglycemic DKA required hospitalization for awake in in [place] in August 2023 l. He was admitted for acute DKA. He presented with difficulty breathing, gener alized weakness and abscess on the back of his head. #1 severe euglycemic DKA associated with SGLT2 inhibitor, likely second episode Lab on admission reviewed, ABG pH 7.2, serum glucose 254 daily to 55, bicarb 8,, anion gap 27, positive beta hydroxybutyric acid, heavy ketonuria, serum lactate normal x 1 Latest bicarb 11, anion gap 17, serum glucose around 200, I will continue insulin infusion with D5 water plus potassium infusion for serum glucose 150-250 and prevent hypoglycemia, I will add sodium bicarb infusion at 100 mL/h to facilitate correction of severe acidosis, check BMP every 4 hour, titrate insulin infusion and bicarb infusion accordingly. #2 history of type 2 diabetes I will obtain hemoglobin A1c, patient is no longer candidate for SGLT2 inhibitor, patient need to change to another hypoglycemic agent #3 purulent cellulitis of the occipital area with sepsis I will start him on IV vancomycin for risk of MRSA and associated with DKA, I will obtain wound culture, no I&D indicated at the moment #4 LIVIA on likely diabetic CKD with overt proteinuria due to #1 and ARB Initial serum creatinine elevated 2.07, serum creatinine trending down #5 mild hypokalemia without EKG change associated with #4, #1, ARB Serum potassium normalized to 3.9, I will hold losartan for now DVT prophylaxis enoxaparin subcu Disposition possible downgrade tomorrow
[2024-02-13] MEDS: VANCOMYCIN 2 GM in NA CHLORIDE 0.9% 500 ML IVPB SCH (09:28)
[2024-02-13 13:55] LABS: Anion Gap 13.7 mEq/L (5.0-15.0); Potassium 3.7 mEq/L (3.5-5.1)
[2024-02-13 17:22] LABS: Anion Gap 16.7 mEq/L (5.0-15.0); Potassium 3.7 mEq/L (3.5-5.1)
[2024-02-13] MEDS: WATER FOR INJ STERILE IV SCH (18:00)
[2024-02-13] MEDS: NA BICARB IV SCH (18:00)
[2024-02-13] MEDS ORDERED: D5W 1,000 ML with NA BICARB 8.4% 50 MEQ IV SCH (19:00)
[2024-02-13] MEDS ORDERED: SODIUM BICARB 50 MEQ/50ML VIAL IV SCH (19:00)
[2024-02-13] MEDS: D5W 1,000 ML IV SCH (19:33)
[2024-02-13 22:27] LABS: Anion Gap 13.5 mEq/L (5.0-15.0); Potassium 3.5 mEq/L (3.5-5.1)
[2024-02-13] MEDS: CODEINE 30MG/APAP 300MG TAB PO PRN (22:45)
[2024-02-13] MEDS: INSULIN NPH (HUMAN) 100 UNITS/ML SQ SCH (23:35)
[2024-02-14 03:07] LABS: Anion Gap 12.3 mEq/L (5.0-15.0); Potassium 3.3 mEq/L (3.5-5.1)
[2024-02-14 05:43] LABS: Absolute Eosinophils 0.1 K/uL (0-0.5); Absolute Lymphocytes (CBC) 1.4 K/uL (0.7-4.9); Absolute Monocytes 0.7 K/uL (0.1-1.3); Absolute Neutrophil 6.7 K/uL (1.8-8.0); Basophils % 0.4 % (0-1.3); Eosinophils % 1.3 % (0-4.4); Hematocrit 36.6 % (39.6-49.0); Hemoglobin 12.4 g/dL (13.6-17.9); MCH 31.6 pg (27.0-35.0); MCHC 33.8 g/dL (32.0-36.0); MCV 93.3 fL (80-100); Monocytes % 8.1 % (3.3-12.3); Neutrophils % 74.2 % (41.7-73.7); Nucleated Red Blood Cells % 0.2 % (0-0); Platelets 251 thou/uL (152-406); RBC Red Blood Cell Count 3.92 M/uL (4.33-5.43); Red Cell Distribution Width 13.5 % (12.1-15.2)
[2024-02-14 05:48] LABS: Anion Gap 14.1 mEq/L (5.0-15.0); Magnesium 2.2 mg/dL (1.6-2.4); Potassium 3.1 mEq/L (3.5-5.1)
[2024-02-14 06:02] VITALS: BMI 38.1
[2024-02-14] MEDS: INSULIN GLARGINE 100 UNIT/ML SQ ONE (07:12)
[2024-02-14] MEDS: NACHLORIDE 0.45% 1,000 ML IV SCH (08:15)
[2024-02-14] MEDS: POTASSIUM CL SA 10 MEQ TAB PO ONE (08:16)
[2024-02-14] MEDS: VANCOMYCIN 2 GM in NA CHLORIDE 0.9% 500 ML IVPB SCH (09:06)
[2024-02-14] MEDS: INSULIN REGULAR (HUMAN) 100 UNIT/ML SQ SCH (11:30)
[2024-02-14 11:56] LABS: Anion Gap 13.8 mEq/L (5.0-15.0); Potassium 3.8 mEq/L (3.5-5.1)
--- NOTE | 2024-02-14 18:16 | P.PN ---
Subjective Date of Service: 02/14/24 Chief Complaint: dka Admitted to ICU with DKA, transferred to the floor Review of Systems 10-point ROS is otherwise unremarkable Physical Examination - Vital Signs Temperature: 97.8 F Blood Pressure: 146/98 Pulse: 88 Respirations: 16 Pulse Ox (%): 99 - Physical Exam General: Alert, In no apparent distress, Oriented x3 HEENT: Atraumatic, Normocephalic, PERRLA Neck: Supple, 2+ carotid pulse no bruit Respiratory: Clear to auscultation bilaterally, Normal air movement Cardiovascular: No edema, Normal pulses, Regular rate/rhythm Capillary refill: <2 Seconds Gastrointestinal: Normal bowel sounds, Soft and benign Musculoskeletal: No clubbing, No swelling Integumentary: No breakdown, No significant lesion Neurological: Normal speech, Normal strength at 5/5 x4 extr Assessment And Plan - Plan Assessment And Plan - Plan Patient is a 43 year old male with a PMH of morbid obesity, hypertension, diabetes mellitus on Synjardy (empagliflozin plus metformin), suspected euglycemic DKA required hospitalization for awake in in [place] in August 2023 l. He was admitted for acute DKA. He presented with difficulty breathing, generalized weakness and abscess on the back of his head. DKA associated with SGLT2 inhibitor, likely second episode Lab on admission reviewed, ABG pH 7.2, serum glucose 254 daily to 55, bicarb 8,, anion gap 27, positive beta hydroxybutyric acid, heavy ketonuria, serum lactate normal x 1 Latest bicarb 11, anion gap 17, serum glucose around 200, I will continue insulin infusion with D5 water plus potassium infusion for serum glucose 150-250 and prevent hypoglycemia, I will add sodium bicarb infusion at 100 mL/h to facilitate correction of severe acidosis, check BMP every 4 hour, titrate insulin infusion and bicarb infusion accordingly. type 2 diabetes with hyperglycemia I will obtain hemoglobin A1c, patient is no longer candidate for SGLT2 inhibitor, patient need to change to another hypoglycemic agent purulent cellulitis of the occipital area with sepsis I will start him on IV vancomycin for risk of MRSA and associated with DKA, I will obtain wound culture, no I&D indicated at the moment Blood cultures are negative Influenza neg Wound culture gram-positive, 3+ staph positive on vancomycin LIVIA on likely diabetic CKD with overt proteinuria Initial serum creatinine elevated 2.07, serum creatinine trending down IV fluids mild hypokalemia without EKG change associated with #4, #1, ARB Serum potassium normalized to 3.9, I will hold losartan for now DVT prophylaxis enoxaparin subcu Disposition possible downgrade tomorrow Discharge Plan: Home - Code Status/Comfort Care Code Status: Full Code Critical Care: No Time Spent Managing PTS Care (In Minutes): 35
[2024-02-14] MEDS: MORPHINE 4 MG/ML SYR IV PRN (20:19)
[2024-02-14 20:39] LABS: Anion Gap 13.6 mEq/L (5.0-15.0); Potassium 3.6 mEq/L (3.5-5.1)
[2024-02-14 22:01] VITALS: O2SAT 97
[2024-02-15 05:24] LABS: Absolute Eosinophils 0.2 K/uL (0-0.5); Absolute Lymphocytes (CBC) 2.1 K/uL (0.7-4.9); Absolute Monocytes 0.7 K/uL (0.1-1.3); Absolute Neutrophil 4.2 K/uL (1.8-8.0); Basophils % 0.6 % (0-1.3); Eosinophils % 2.8 % (0-4.4); Hematocrit 36.3 % (39.6-49.0); Hemoglobin 12.3 g/dL (13.6-17.9); Lymphocytes % 29.1 % (15.3-44.8); MCH 31.4 pg (27.0-35.0); MCV 92.4 fL (80-100); MPV 9.9 fL (7.6-11.3); Monocytes % 9.2 % (3.3-12.3); Neutrophils % 58.3 % (41.7-73.7); Platelets 259 thou/uL (152-406); RBC Red Blood Cell Count 3.93 M/uL (4.33-5.43); Red Cell Distribution Width 13.5 % (12.1-15.2)
[2024-02-15 06:49] LABS: Anion Gap 13.2 mEq/L (5.0-15.0); Magnesium 1.9 mg/dL (1.6-2.4); Phosphorus 2.8 mg/dL (2.5-4.9); Potassium 3.2 mEq/L (3.5-5.1)
--- NOTE | 2024-02-15 07:12 | P.DS ---
Admission Date: 02/12/24 Discharge Date: 02/15/24 Disposition: ROUTINE DISCHARGE Discharge Condition: GOOD Reason for Admission: dka Brief History of Present Illness: Patient is a 43 year old male with a PMH of diabetes mellitus. He is being admitted for acute DKA. He presented with difficulty breathing, generalized weakness and abscess on the back of his head. Associated sx include subjective fever and upper abdomen pain. He has cellulitis of the posterior scalp. Patient's labs are consistent with DKA. He will be admitted to the ICU for DKA management. VBG shows HCO3 of 8, gap 27.8 and serum ketone > 4.5 - Physical Exam General: Alert, In no apparent distress, Oriented x3 HEENT: Atraumatic, Normocephalic, PERRLA Neck: Supple, 2+ carotid pulse no bruit Respiratory: Clear to auscultation bilaterally, Normal air movement Cardiovascular: No edema, Normal pulses, Regular rate/rhythm Capillary refill: <2 Seconds Gastrointestinal: Normal bowel sounds, Soft and benign Musculoskeletal: No clubbing, No swelling Integumentary: No breakdown, No significant lesion, occipital cellulitis serosanguineous drainage drainage Neurological: Normal speech, Normal strength at 5/5 x4 extr Hospital Course: Patient is a 43 year old male with a PMH of diabetes mellitus. He is being admitted for acute DKA. He presented with difficulty breathing, generalized weakness and abscess on the back of his head. Associated sx include subjective fever and upper abdomen pain. He has cellulitis of the posterior scalp. Patient's labs are consistent with DKA. He will be admitted to the ICU for DKA management. Blood glucose improved with insulin. abscess on the back of his head, treated with IV vancomycin, leukocytosis improved, tolerating diet, stable to discharge home on p.o. antibiotics. Discharged home on Cipro 1 p.o. twice daily for 14 days Metformin 1 p.o. twice daily Glipizide 2.5 daily, Silvadene cream daily to occipital, cover with dry dressing Keep blood glucose log, follow-up with PCP in 1 week Assessment DKA, resolved, blood sugar monitoring after discharge, take blood glucose log to PCP appointment Diabetes with hyperglycemia discharged home on oral hypoglycemics, Purulent cellulitis of the occipital scalp discharged home on Bactrim p.o.-Staph aureus Acute kidney injury, improved treated with IV fluids, [id number] electrolytes replace Hemoglobin A1c 9.2 Continue home medicines as previously prescribed GOAL: Clear understanding of disease process INSTRUCTIONS: Physician Discharge Instructions: -Follow-up with PCP in 1 to 2 weeks -Please call Dr. Crump at [phone] if any questions regarding hospital stay -Please call nursing station at [phone] if any nursing or medication questions -Return to the emergency room if symptoms worsen Diet: ADA, low sodium Activity: Fall precautions Vital Signs/Physical Exam: Temp Pulse Resp BP Pulse Ox 97.8 F 88 16 146/98 H 99 02/15/24 07:07 02/15/24 07:07 02/15/24 07:07 02/15/24 07:07 02/15/24 07:07 Other Physical/Emotional Findings: - Physical Exam. General: acutely ill looking, in no apparent distress,. HEENT: Normocephalic, atraumatic, nonicteric sclera, nonanemic conjunctive. Neck: 3 cm x 3 cm tender soft tissue mass in the occipital area with purulent discharge, no fluctuance , without JVD or goiter or thyroid mass. Respiratory: Normal breathing effort, clear to auscultation bilaterally, no crackles no wheezing or rhonchi. Cardiovascular: Regular rate and rhythm, S1, S2 normal, no murmur no gallop. Gastrointestinal: Normal bowel sounds, nondistended, nontender, No ascites, , No masses, no hepatosplenomegaly. Extremities : No clubbing, No peripheral edema, full range of motion, no deformity, no muscle atrophy. Integumentary: No rashes, petechia, suspected lesions. Lymphatics: No axilla or cervical lymphadenopathy. Neurology; alert awake oriented x3, no focal neurologic deficit, normal affection . mood and behavior. Laboratory Data at Discharge: WBC 7.20 thou/uL (4.3-10.9) 02/15/24 05:10 Hgb 12.3 g/dL (13.6-17.9) L 02/15/24 05:10 Hct 36.3 % (39.6-49.0) L 02/15/24 05:10 Plt Count 259 thou/uL (152-406) 02/15/24 05:10 PT 11.0 SECONDS (9.4-12.5) 02/12/24 20:17 INR 0.98 02/12/24 20:17 APTT 40.0 SECONDS (24.3-36.9) H 02/12/24 20:17 Sodium Cancelled 02/15/24 21:00 Potassium Cancelled 02/15/24 21:00 BUN Cancelled 02/15/24 21:00 Creatinine Cancelled 02/15/24 21:00 Glucose Cancelled 02/15/24 21:00 Phosphorus 2.8 mg/dL (2.5-4.9) 02/15/24 05:10 Magnesium 1.9 mg/dL (1.6-2.4) 02/15/24 05:10 Total Bilirubin 0.7 mg/dL (0.2-1.0) 02/12/24 20:17 AST < 10 U/L (15-37) L 02/12/24 20:17 ALT 25 U/L (16-61) 02/12/24 20:17 Alkaline Phosphatase 75 U/L (45-117) 02/12/24 20:17 Triglycerides 359 mg/dL (<150) H 02/13/24 04:55 Cholesterol 220 mg/dL (<200) H 02/13/24 04:55 HDL Cholesterol 29 mg/dL (40-60) L 02/13/24 04:55 Cholesterol/HDL Ratio 7.59 02/13/24 04:55 Home Medications: RX: Losartan Potassium 50 mg PO DAILY 02/13/24 Ciprofloxacin HCl [Cipro 500 MG Tablet] 500 mg PO BID 14 Days #28 tab 02/15/24 RX: Blood-Glucose Meter [Accu-Chek Guide Monitor System] 1 each MC DAILY 30 Days #1 ea 02/15/24 RX: Glipizide [Glipizide Xl] 2.5 mg PO 30 MIN BEFORE HS 30 Days #30 tab 02/15/24 RX: Metformin HCl 500 mg PO BID 30 Days #60 tab 02/15/24 Silver Sulfadiazine [Silvadene 1% Cream] 20 appl TOP DAILY 30 Days #1 tub 02/15/24 New Medications: RX: Blood-Glucose Meter [Accu-Chek Guide Monitor System] 1 each MC DAILY 30 Days #1 ea Ciprofloxacin HCl [Cipro 500 MG Tablet] 500 mg PO BID 14 Days #28 tab RX: Glipizide [Glipizide Xl] 2.5 mg PO 30 MIN BEFORE HS 30 Days #30 tab RX: Metformin HCl 500 mg PO BID 30 Days #60 tab Silver Sulfadiazine [Silvadene 1% Cream] 20 appl TOP DAILY 30 Days #1 tub Physician Discharge Instructions: Patient is a 43 year old male with a PMH of diabetes mellitus. He is being admitted for acute DKA. He presented with difficulty breathing, generalized weakness and abscess on the back of his head. Associated sx include subjective fever and upper abdomen pain. He has cellulitis of the posterior scalp. Patient's labs are consistent with DKA. He will be admitted to the ICU for DKA management. Blood glucose improved with insulin. abscess on the back of his head, treated with IV vancomycin, leukocytosis improved, tolerating diet, stable to discharge home on p.o. antibiotics. Assessment DKA, resolved, blood sugar monitoring after discharge, take blood glucose log to PCP appointment Diabetes with hyperglycemia discharged home on oral hypoglycemics, Purulent cellulitis of the occipital scalp discharged home on Bactrim p.o. Acute kidney injury, treated with IV fluids, Hypoglycemia electrolytes replace Continue home medicines as previously prescribed GOAL: Clear understanding of disease process INSTRUCTIONS: Physician Discharge Instructions: -Follow-up with PCP in 1 to 2 weeks -Please call Dr. Crump at [phone] if any questions regarding hospital stay -Please call nursing station at [phone] if any nursing or medication questions -Return to the emergency room if symptoms worsen Diet: ADA, low sodium Activity: Fall precautions Diet: ADA Activity: Fall precautions Followup: Lorna Sheridan MD [Primary Care Provider] - Time spent managing pt's care (in minutes): 45
[2024-02-15] MEDS ORDERED: NA CHLORIDE 0.9% 1,000 ML IV SCH (08:00)
[2024-02-15] MEDS: POTASSIUM 25 MEQ EFFERV TAB PO ONE (09:02)
--- NOTE | 2024-02-15 13:26 | P.CNS ---
Date of Consult: 02/15/24 Patient seen for cellulitis of the scalp area and posterior neck region, this is a 43 year old male with a PMH of diabetes mellitus. He is being admitted for acute DKA. He presented with difficulty breathing, generalized weakness and abscess on the back of his head. Associated sx include subjective fever and upper abdomen pain. He has cellulitis of the posterior scalp. Patient's labs are consistent with DKA. He will be admitted to the ICU for DKA management. Patient is currently being treated with vancomycin Past medical history: Diabetes mellitus Acetaminophen (Acetaminophen 325 Mg Tablet) 650 mg PO Q6H PRN PRN Reason: Pain scale 2-4 (Mild) Last Admin: 02/13/24 05:13 Dose: 650 mg Acetaminophen/Codeine Phosphate (Codeine 30mg/Apap 300mg Tab) 1 tab PO Q4H PRN PRN Reason: Pain scale 5-7 (Moderate) Last Admin: 02/15/24 10:03 Dose: 1 tab Enoxaparin Sodium (Enoxaparin 40 Mg/0.4 Ml) 40 mg SQ DAILY [facility] Last Admin: 02/15/24 09:01 Dose: 40 mg Glucagon (Glucagon 1 Mg/Vial) 1 mg IM 1X PRN; Protocol PRN Reason: HYPOGLYCEMIA Dextrose (Dextrose 10% Water Iv Soln.) 125 mls @ 0 mls/hr IV PRN PRN; Protocol PRN Reason: HYPOGLYCEMIA Sodium Chloride (Sodium Chloride 0.45%) 1,000 mls @ 50 mls/hr IV .Q20H [facility] Last Admin: 02/15/24 04:56 Dose: 1,000 mls Vancomycin HCl 2 gm/ Sodium (Chloride) 500 mls @ 250 mls/hr IVPB Q12HR [facility]; Protocol Last Admin: 02/15/24 10:03 Dose: 500 mls Sodium Chloride (Ns 1000 Ml Ivbag) 1,000 mls @ 100 mls/hr IV .Q10H [facility] Stop: 02/16/24 03:59 Insulin Human Regular (Insulin Regular (Human) 100 Unit/Ml) 0 unit SQ ACHS [facility]; Protocol Last Admin: 02/15/24 12:36 Dose: 2 unit Morphine Sulfate (Morphine 4 Mg/Ml Syr) 4 mg IV Q6H PRN PRN Reason: Pain scale 8-10 (Severe) Last Admin: 02/15/24 04:59 Dose: 4 mg Ondansetron HCl (Ondansetron 4 Mg/2 Ml Vial) 4 mg IV Q6H PRN PRN Reason: NAUSEA / VOMITING Allergy/AdvReac Type Severity Reaction Status Date / Time No Known Allergies Allergy Unverified 02/13/24 01:55 Social history: Non-smoker nondrinker Family history: Noncontributory Review of system: 10 point review was performed Physical exam: Patient lying in bed not in any acute cardiopulmonary distress Temp Pulse Resp BP Pulse Ox 97.7 F 68 16 135/81 96 02/15/24 12:00 02/15/24 12:00 02/15/24 12:00 02/15/24 12:00 02/15/24 12:00 HEENT: Atraumatic, Normocephalic, PERRLA Neck: Supple, 2+ carotid pulse no bruit Respiratory: Clear to auscultation bilaterally, Normal air movement Cardiovascular: No edema, Normal pulses, Regular rate/rhythm Capillary refill: <2 Seconds Gastrointestinal: Normal bowel sounds, Soft and benign Musculoskeletal: No clubbing, No swelling Integumentary: Erythematous changes noted at the nape of neck with increased warmth and yellowish discharge Laboratory Last Values WBC 18.40 thou/uL (4.3-10.9) H 02/12/24 20:17 RBC 5.39 M/uL (4.33-5.43) 02/12/24 20:17 Hgb 16.8 g/dL (13.6-17.9) 02/12/24 20:17 Hct 51.1 % (39.6-49.0) H 02/12/24 20:17 MCV 94.9 fL (80-100) 02/12/24 20:17 MCH 31.2 pg (27.0-35.0) 02/12/24 20:17 MCHC 32.8 g/dL (32.0-36.0) 02/12/24 20:17 RDW 13.9 % (12.1-15.2) 02/12/24 20:17 Plt Count 373 thou/uL (152-406) 02/12/24 20:17 MPV 10.6 fL (7.6-11.3) 02/12/24 20:17 Neutrophils % 83.9 % (41.7-73.7) H 02/12/24 20:17 Lymphocytes % 8.7 % (15.3-44.8) L 02/12/24 20:17 Monocytes % 6.9 % (3.3-12.3) 02/12/24 20:17 Eosinophils % 0.1 % (0-4.4) 02/12/24 20:17 Basophils % 0.4 % (0-1.3) 02/12/24 20:17 Absolute Neutrophils 15.5 K/uL (1.8-8.0) H 02/12/24 20:17 Absolute Lymphocytes 1.6 K/uL (0.7-4.9) 02/12/24 20:17 Absolute Monocytes 1.3 K/uL (0.1-1.3) 02/12/24 20:17 Absolute Eosinophils 0.0 K/uL (0-0.5) 02/12/24 20:17 Absolute Basophils 0.1 K/uL (0-0.5) 02/12/24 20:17 PT 11.0 SECONDS (9.4-12.5) 02/12/24 20:17 INR 0.98 02/12/24 20:17 APTT 40.0 SECONDS (24.3-36.9) H 02/12/24 20:17 Sodium 139 mEq/L (136-145) 02/12/24 20:17 Potassium 4.8 mEq/L (3.5-5.1) 02/12/24 20:17 Chloride 108 mEq/L (98-107) H 02/12/24 20:17 Carbon Dioxide 8 mEq/L (21-32) L* 02/12/24 20:17 Anion Gap 27.8 mEq/L (5.0-15.0) H 02/12/24 20:17 BUN 30 mg/dL (7-18) H 02/12/24 20:17 Creatinine 1.68 mg/dL (0.70-1.30) H 02/12/24 20:17 Est GFR (CKD-EPI) 51 ml/min (=/>90) L 02/12/24 20:17 Glucose 255 mg/dL (74-106) H 02/12/24 20:17 POC Glucose 221 mg/dL (65-120) H 02/12/24 22:11 Lactic Acid 1.6 mmol/L (0.4-2.0) 02/12/24 20:17 Calcium 8.8 mg/dL (8.5-10.1) 02/12/24 20:17 Phosphorus 5.9 mg/dL (2.5-4.9) H 02/12/24 20:17 Magnesium 2.7 mg/dL (1.6-2.4) H 02/12/24 20:17 Total Bilirubin 0.7 mg/dL (0.2-1.0) 02/12/24 20:17 AST < 10 U/L (15-37) L 02/12/24 20:17 ALT 25 U/L (16-61) 02/12/24 20:17 Alkaline Phosphatase 75 U/L (45-117) 02/12/24 20:17 Troponin I High Sens < 3.0 pg/mL (<58.9) 02/12/24 20:17 Serum Total Protein 10.0 g/dL (6.4-8.2) H 02/12/24 20:17 Albumin 4.0 g/dL (3.4-5.0) 02/12/24 20:17 Globulin 6.0 g/dL (2.3-3.5) H 02/12/24 20:17 Albumin/Globulin Ratio 0.7 (1.1-1.8) L 02/12/24 20:17 Beta-Hydroxybutyrate/Acetoacetate > 4.50 mmol/L (0.02-0.27) H 02/12/24 20:17 Urine Color Colorless (Yellow) 02/12/24 23:10 Urine Clarity Clear (Clear) 02/12/24 23:10 Urine pH 5.5 (5.0-7.0) 02/12/24 23:10 Ur Specific [place] 1.028 (1.005-1.030) 02/12/24 23:10 Glucose (UA)(Auto) 4+ (over) (Negative) H 02/12/24 23:10 Urine Ketones 4+ (over) (Negative) H 02/12/24 23:10 Urine Blood Trace (Negative) H 02/12/24 23:10 Urine Nitrite Negative (Negative) 02/12/24 23:10 Urine Bilirubin Negative (Negative) 02/12/24 23:10 Urine Urobilinogen Normal (Normal) 02/12/24 23:10 Ur Leukocyte Esterase Negative Danay/uL (Negative) 02/12/24 23:10 Urine RBC <5 /HPF (None Seen) 02/12/24 23:10 Urine WBC <5 /HPF (<5) 02/12/24 23:10 Ur Squamous Epith Cells None seen /HPF (None Seen) 02/12/24 23:10 Unidentified Crystals Few /HPF (None Seen) 02/12/24 23:10 Urine Bacteria None seen /HPF (<20) 02/12/24 23:10 Hyaline Casts 0-5 /LPF (None Seen) 02/12/24 23:10 Urine Mucus Slight /HPF (None Seen) 02/12/24 23:10 Urine Culture Reflexed Not needed 02/12/24 23:10 Urine Total Protein 1+ (Negative) H 02/12/24 23:10 SARS-CoV-2 Ag (Rapid) Negative (Negative) 02/12/24 21:55 Wound culture from the shows Staph aureus Assessment and plan: Cellulitis versus carbuncle of the nape region can be switched to oral antibiotic Bactrim or Cipro total of 2 weeks Staph aureus infection apply Bactroban or Silvadene to the wound side Leukocytosis improved DKA improved Diabetes mellitus Monitor signs of infection with WBC and fever trends Thank you for consult
--- NOTE | 2024-02-21 11:16 | EKG ---
Test Date: 2024-02-12 Test Time: 19:49:59 Correctional Therapy Director: ABEL MEASUREMENT RESULTS: Intervals: Rate: 126 WI: 140 QRSD: 84 QT: 330 QTc: 477 [place]: P: 65 WI: 140 QRS: -4 T: 60 INTERPRETIVE STATEMENTS: Sinus tachycardia Otherwise normal ECG No previous ECG available for comparison Electronically Signed On 02-21-24 11:02:36 SCORE CALLER by Wilbur Dewitt
[2024-02-22 16:12] VITALS: BP 146/98; TEMP 97.8
== END 2024-02-15 17:41 | disposition home or self-care (01) | DRG 871 ==
LOC: ER 19:38 → ERHOLD 23:27 → 3RD-ICU 02-13 01:56 → 2ND 02-14 16:21
PROVIDERS: ADMIT Internal Medicine; ATTEND Hospitalist
DX: A41.01 Sepsis due to Methicillin susceptible Staphylococcus aureus (principal); E11.10 Type 2 diabetes mellitus with ketoacidosis without coma; L03.811 Cellulitis of head [any part, except face]; N17.9 Acute kidney failure, unspecified; I10 Essential (primary) hypertension; E87.6 Hypokalemia; E66.01 Morbid (severe) obesity due to excess calories; Z11.52 Encounter for screening for COVID-19; Z68.38 Body mass index [BMI] 38.0-38.9, adult
CPT/HCPCS: 36415; 36600; 70450; 71045; 74176; 80048; 80053; 80061; 80202; 81001; 82010; 82805; 82947; 83036; 83605; 83735; 84100; 84484; 85025; 85610; 85730; 87040; 87070; 87077; 87186; 87205; 87804; 87811; 93005; 96365; 96367; 96375; 99285; J0692; J1650; J1815; J2405; J3010; J3480; J7030; J7040; J7042; J7050; J7799

== ENCOUNTER 2024-04-26 07:12 | Day surgery (SDC) | payer BC ==
[2024-04-26] MEDS: NA CHLORIDE 0.9% 1,000 ML ONE (07:55)
[2024-04-26 08:09] LABS: Absolute Basophils 0.1 K/uL (0-0.5); Absolute Eosinophils 0.3 K/uL (0-0.5); Absolute Lymphocytes (CBC) 2.1 K/uL (0.7-4.9); Absolute Monocytes 0.5 K/uL (0.1-1.3); Absolute Neutrophil 3.8 K/uL (1.8-8.0); Basophils % 1.1 % (0-1.3); Eosinophils % 4.4 % (0-4.4); Hematocrit 43.1 % (39.6-49.0); Hemoglobin 14.8 g/dL (13.6-17.9); Lymphocytes % 31.2 % (15.3-44.8); MCH 32.2 pg (27.0-35.0); MCHC 34.4 g/dL (32.0-36.0); MCV 93.4 fL (80-100); MPV 9.1 fL (7.6-11.3); Monocytes % 7.5 % (3.3-12.3); Neutrophils % 55.8 % (41.7-73.7); Nucleated Red Blood Cells % 0.1 % (0-0); Platelets 267 thou/uL (152-406); RBC Red Blood Cell Count 4.61 M/uL (4.33-5.43); Red Cell Distribution Width 13.6 % (12.1-15.2)
[2024-04-26] MEDS ORDERED: ONDANSETRON 4 MG/2 ML VIAL ONE (09:23)
[2024-04-26] MEDS ORDERED: LIDOCAINE 2% MPF 5 ML VIAL ONE (09:23)
[2024-04-26] MEDS ORDERED: dexAMETHasone 10 MG/ML VIAL ONE (09:23)
[2024-04-26] MEDS ORDERED: MIDAZOLAM HCL 2 MG/2 ML INJ ONE (09:23)
[2024-04-26] MEDS ORDERED: KETOROLAC 30 MG/ML INJ ONE (09:23)
[2024-04-26] MEDS ORDERED: FENTANYL CITR 100 MCG/2 ML ONE (09:23)
[2024-04-26] MEDS ORDERED: propofoL 200 MG/20 ML VIAL IV ONE (09:23)
[2024-04-26] MEDS: CEFAZOLIN SODIUM 1 GM/VIAL ONE (09:58)
[2024-04-26] MEDS ORDERED: NS 0.9% VIAL 10 ML ONE (10:12)
[2024-04-26] MEDS: BUPIVACAINE 0.5% PF 10 ML VIAL ONE (10:30)
--- NOTE | 2024-04-26 11:03 | P.BOP ---
Preoperative diagnosis: infected posterior scalp subQ mass Postoperative diagnosis: same Primary procedure: Excisional biopsy of infected posterior scalp subQ mass 3x4cm Estimated blood loss: <10cc Specimen: mass with culture Findings: as above Anesthesia: General Complications: None Transferred to: Recovery Room Condition: Good
[2024-04-26] MEDS: FENTANYL CITR 100 MCG/2 ML ONE (11:30)
[2024-04-26 11:44] VITALS: O2SAT 99
[2024-04-26] MEDS: CODEINE 30MG/APAP 300MG TAB ONE (11:55)
[2024-04-26 12:32] VITALS: BP 131/88; TEMP 97.3
--- NOTE | 2024-04-26 15:01 | OP ---
Date of Procedure: 04/26/2024 Surgeon: Wm Paris MD Preoperative Diagnosis: Infected posterior scalp subcutaneous mass. Postoperative Diagnosis: Infected posterior scalp subcutaneous mass. Procedure: Excisional biopsy of infected posterior scalp subcutaneous mass about 4 x 3 cm Estimated Blood Loss: Less than 10 cc. Specimen: Mass with culture. Findings: Patient has an area of about 5 x 5 cm that felt induration, but the mass itself was only a bout 3 x 4 cm. We have some discharge inside. It is part of his previous infection. We were able t o irrigate the area profusely. The patient wanted this area to be closed. He understands that we ma y have to remove the stitches in few days and do wet-to-dry dressing if we see that clinically he sotelo s not improve. But we irrigated the area multiple times, absolutely clean and looks like the tissue around the area length enough to be approximated in a [id number] fashion loosely. Complications: None. Indications: This is a case of a 43-year-old patient who comes to us with infected posterior scalp s ubcutaneous mass. Given antibiotics before, improved little bit of condition, but still mass present . He wants that excised. Benefits, alternatives and risks include, but not limited to infection, bl eeding, damage to adjacent structures, anesthesia complication, recurrence, NE, even . He also understands the chance of alopecia. The chance of having to do wet-to-dry dressing and packing, leav ing a large defect in that area. He signed a consent. The area of concern was marked by me with the patient in the holding room. Procedure In Detail: The patient brought to the operating room, placed in supine position. Anesthes ia was done without complication. The scalp area was prepped and draped in sterile fashion. So we p roceeded to do a wedge incision in the area. Incision was carried down to subcutaneous tissue. We n oticed that the patient had a lot of areas with induration, but the mass comes about 4 x 3 cm in the 5 x 5 area, mainly the swelling associated with it. So, we removed the mass. There were some differ ent pieces that go deeper. We chased those too and removed them. The area was irrigated. The fluid in that area was cultured. The area was irrigated and then we proceeded to approximate this with 2- nylon in a [id number] fashion multiple times with gaps in between to allow drainage. The patien t tolerated the procedure well. Area was covered with sterile dressings. Patient sent to Recovery i n stable condition. Condition: Stable. Disposition: Home. Activity: As tolerated. No heavy lifting. Followup: Follow up in my office in 1 week. Call for appointment [phone]. Keep area dry for 48 ho urs. Thereafter, clean with soap and water. Apply Neosporin and redrape the dressing again to dimin bishnu the chance of seromas or hematomas. [place] Voice ID: [id number] Report ID: [id number]
== END 2024-04-26 12:29 | disposition home or self-care (01) ==
LOC: OR 07:12
PROVIDERS: ATTEND Surgery
PROC: 0JB00ZZ Excision of Scalp Subcutaneous Tissue and Fascia, Open Approach (ICD-10-PCS; principal; 2024-04-26 09:58)
DX: L02.811 Cutaneous abscess of head [any part, except face] (principal); L92.9 Granulomatous disorder of the skin and subcutaneous tissue, unspecified
CPT/HCPCS: 87070; 85025; 80048; 36415; 87205 ×2; 88312; 88304; 87075; 87077; 87186; 11424; A4216; J2704; J2003; J2250; J3010 ×2; J1100; J2405; J7030; J0690